=== PATIENT | male | born 1935 | race Caucasian/White ===

== ENCOUNTER → 2017-09-09 | Outpatient (CLI) | payer OTHER ==
--- NOTE | 2017-09-09 13:21 | DIAGNOSTIC IMAGING REPORT ---
LUMBAR SPINE W/O CONTRAST CLINICAL HISTORY: 81 years-old Male with LUMBAR RADICULAR PAIN M54.16. Chronic lumbar spine pain without reported trauma history of skin cancer. COMPARISON: None. TECHNIQUE: Multiplanar, multi sequence MRI of the lumbar spine was performed without intravenous contrast. FINDINGS: Conus medullaris terminates at T12-L1. Signal within the cord is within normal limits. No acute fracture or subluxation identified. 6 mm anterolisthesis L4 on L5 is noted, likely secondary to long-standing facet disease. Moderate Schmorl's nodes are seen involving the superior endplates of L3 and L4. Multifocal degenerative changes as described below. 1.7 x 1.3 cm area of marrow replacement involves the S2 vertebral body with only minimal edema as seen on image 10 series 4 and image 10 of series 5. Abnormal marrow signal involving the bilateral sacral ala and the S1 vertebral body suggests remote insufficiency fractures without bone marrow edema. Enlarged prostate measures up to 6.1 cm in coronal caudal dimension. There appears to be parenchymal thinning of the kidneys. 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 T12-L1: Mild intervertebral disc space narrowing with posterior spondylitic spurring and broad-based posterior disc bulge. Moderate facet arthrosis with ligamentum flavum thickening. No central canal or foraminal narrowing. L1-L2: Mild intervertebral disc space narrowing with posterior spondylitic spurring and broad-based posterior disc bulge. Moderate facet arthrosis with ligamentum flavum thickening. No central canal or foraminal narrowing. L2-L3: Moderate intervertebral disc space narrowing with circumferential annular disc bulge, posterior spondylitic spurring and moderate facet arthrosis and ligamentum flavum thickening. Mild central canal and mild inferior right foraminal narrowing. Left foramen is patent. L3-L4: Moderate intervertebral disc space narrowing with posterior spondylitic spurring, severe facet arthrosis with facet effusions and ligament of flavum thickening. There is mild central canal, moderate right and mild left foraminal stenosis. L4-L5: Anterolisthesis L4 on L5 as above with circumferential annular disc bulge, posterior spondylitic spurring, advanced facet arthrosis with advanced ligamentum flavum thickening resulting in severe central canal narrowing with thecal sac measuring 4 mm in AP dimension. Mild to moderate right and moderate left foraminal narrowing. L5-S1: Partial fusion at this level with posterior spondylitic spurring and advanced facet arthropathy. Central canal is patent. Mild bilateral foraminal narrowing. IMPRESSION: 1. Remote appearing insufficiency fractures of the bilateral sacral ala, S1 and S2 vertebral bodies. No displacement. 2. Grade 1 anterolisthesis L4 on L5 likely secondary to severe facet arthrosis. At this level, there is also posterior disc bulge with advanced facet arthropathy, spondylitic spurring and ligamentum flavum thickening resulting in severe central canal, mild to moderate right and moderate left foraminal narrowing. 3. Additional discogenic degenerative changes as above. 4. 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 5. Prostamegaly. The above report was generated using voice recognition software. It may contain grammatical, syntax or spelling errors. Electronically signed by: Raj Land M.D. 09/09/2017 1:19 PM Dictated Date/Time: 09/09/2017 12:51 PM
== END | disposition home or self-care (01) ==
LOC: C.MRI 11:47
PROVIDERS: ATTEND Pain Medicine Interventional Pain Medicine
DX: M51.16 Intervertebral disc disorders with radiculopathy, lumbar region (principal); N40.0 Benign prostatic hyperplasia without lower urinary tract symptoms; I71.9 Aortic aneurysm of unspecified site, without rupture

== ENCOUNTER 2024-08-11 19:34 | Inpatient (IN) ==
--- NOTE | 2024-08-11 19:51 | Emergency Department Note ---
Impression & Plan Chest pain, Elevated troponin I level, Abnormal EKG, Acute non-ST elevation myocardial infarction (NSTEMI) ED Provider Note NAME: JOVON ANNE AGE: 88 SEX: M : 1935 ARRIVES VIA: Ambulance INFORMANT: Patient, ED PROVIDER(S): Royal Carter DO CHIEF COMPLAINT: Chest pain HPI: The patient is an 88-year-old male who is a remote history of coronary artery disease who presented to the emergency department for an evaluation of chest pain. The patient describes anterior chest pain which began prior to arrival. He was treated with aspirin and nitroglycerin by the prehospital personnel. He was brought directly to the emergency department. Upon arrival the patient states his pain is no longer there. He denies having any lower extremity swelling or pain. He denies having any nausea or vomiting. ROS: See above HPI for pertinent positives & negatives. A total of 10 systems reviewed and were otherwise negative. PAST MEDICAL HISTORY: See Below PAST SURGICAL HISTORY: See Below FAMILY HISTORY: See Below SOCIAL HISTORY: See Below HOME MEDICATIONS: See Below ALLERGIES: See Below VITALS: See Below PHYSICAL EXAMINATION: GENERAL: Patient is awake alert in no acute distress patient is resting comfortably and showing no signs of anxiety EYES: The conjunctivae are clear. The pupils are round and reactive. EARS, NOSE, MOUTH AND THROAT: The nose is without any evidence of any deformity NECK: The neck is nontender and supple. RESPIRATORY: Normal respiratory effort is noted there is no evidence of wheezing rhonchi or rales CARDIOVASCULAR: Regular rate and rhythm noted there no murmurs rubs or gallops normal S1 normal S2. GASTROINTESTINAL: The abdomen is soft. Abdomen is nontender. MUSCULOSKELETAL/EXTREMITIES: There is no evidence of gross deformity full range of motion is noted in the hips and shoulders. SKIN: There is no obvious evidence of any rash. There are no petechiae, pallor or cyanosis noted. NEUROLOGIC: Patient is awake alert and oriented x3 MEDICAL DECISION MAKING: The patient is an 88-year-old male who presented to the emergency department for an evaluation of chest pain. The patient developed anterior chest pain which resolved prior to arrival after he received aspirin and nitroglycerin by the prehospital personnel. The patient was reevaluated multiple times. I discussed the patient's laboratory and radiographic studies with him. He was found to have an abnormal EKG that showed some ST segment depression in the low lateral as well as the inferior leads. The patient was also found have an elevated troponin. He was started on heparin after his second troponin was found to be higher than the initial. The patient was evaluated by the [facility]ist. Triage Nursing notes reviewed. Prior medical records reviewed Vital Signs: reviewed and remarkable for no significant abnormalities Differential diagnosis: Cardiac ischemia, aortic dissection, pulmonary embolism, pneumothorax, pneumonia, pericarditis, myocarditis, esophageal rupture, GERD, cholecystitis, pancreatitis, musculoskeletal, as well as other pathologies. ER treatment provided: See below Diagnostics interpreted by me: ECG: EKG was obtained in the emergency department. My interpretation is normal sinus rhythm at 80 bpm. There is no ectopy. Nonspecific ST depressions were noted in the inferior and low lateral leads. No previous tracing was available. Cardiac Monitoring: An order was placed for continuous cardiac monitoring. The monitor shows a rate of 86 bpm with sinus rhythm. Laboratory studies: As stated above and show below. Imaging studies: See below. Radiographic imaging was reviewed by myself Consultation(s): I discussed this case with Dr. Christensen who was on-call for the [facility]ist group. ED COURSE: Procedures: none Critical Care: I have personally spent greater than 35 minutes of critical care time in the direct management of this patient. This includes bedside care, interpretation of diagnostic studies, and testing, discussion with consultants, patient, and family members, and other required patient management activities. This 35 minutes is in excess of all separately billable procedures. 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 Type 2 diabetes mellitus AAA (abdominal aortic aneurysm) BPH (benign prostatic hyperplasia) HTN (hypertension) Dyslipidemia Medical History (Updated 08/11/24 @ 23:47 by Royal Carter DO) Cataract fragments in right eye following surgery Surgical History History of left cataract surgery Social History Smoking Status: Never smoker Hx Alcohol Use: No Preferred Language: Armenian Visual Impairment: No Limitations Hearing Ability: Normal [employer]atto[employer] Supervisor Required: No Beliefs That Will Affect Care: None marital status: Current Living Situation: Spouse current occupational status: retired Feels Safe at Home: Yes Allergies Allergies Allergy/AdvReac Type Severity Reaction Status Date / Time No Known Allergies Allergy Verified 11/28/19 14:05 Home Meds Home Medications Medication Instructions Recorded Confirmed aspirin 81 mg tablet,delayed 81 mg PO QPM 10/20/19 08/11/24 release (Adult Aspirin Regimen) cholecalciferol (vitamin D3) 50 2,000 units PO DAILY 10/20/19 08/11/24 mcg (2,000 unit) tablet ezetimibe 10 mg tablet (Zetia) 10 mg PO QPM 10/20/19 08/11/24 famotidine 20 mg tablet 20 mg PO BID 10/20/19 08/11/24 finasteride 5 mg tablet 5 mg PO DAILY 10/20/19 08/11/24 losartan 50 mg tablet 50 mg PO DAILY 10/20/19 08/11/24 metoprolol tartrate 50 mg tablet 50 mg PO BID 10/20/19 08/11/24 terazosin 5 mg capsule 10 mg PO HS 10/20/19 08/11/24 atorvastatin 10 mg tablet 10 mg PO HS 08/11/24 08/11/24 gabapentin 600 mg tablet 600 mg PO UD 08/11/24 08/11/24 levothyroxine 150 mcg tablet 150 mcg PO DAILY@0630 08/11/24 08/11/24 metformin 500 mg tablet,extended 500 mg PO BIDM 08/11/24 08/11/24 release 24 hr nifedipine 30 mg tablet,extended 30 mg PO PM 08/11/24 08/11/24 release pantoprazole 40 mg tablet,delayed 40 mg PO DAILY 08/11/24 08/11/24 release Results & Data (ED) Vital Signs Vital Signs - 24 hr 08/11/24 19:26 08/11/24 19:26 08/11/24 19:26 Temperature 36.5 C 36.7 C Temperature Source Oral Oral Pulse Rate 83 Pulse Rate [Right Finger] 80 Respiratory Rate 18 18 Blood Pressure 103/88 Blood Pressure [Right Arm] 103/88 Blood Pressure Mean 93 Blood Pressure Mean [Right Arm] 93 Pulse Oximetry 94 95 95 Oxygen Delivery Method Room Air Room Air Room Air Sepsis Recent Fever Within 48 Hours No Sepsis New/Unexplained Change in Mental Status N/A Sepsis Action Taken by Nursing No Action Required 08/11/24 19:38 08/11/24 19:42 08/11/24 20:47 Temperature Temperature Source Pulse Rate 80 80 79 Pulse Rate [Right Finger] Respiratory Rate 18 18 Blood Pressure 93/59 L Blood Pressure [Right Arm] Blood Pressure Mean 70 Blood Pressure Mean [Right Arm] Pulse Oximetry 95 96 Oxygen Delivery Method Room Air Sepsis Recent Fever Within 48 Hours Sepsis New/Unexplained Change in Mental Status Sepsis Action Taken by Nursing 08/11/24 21:57 08/11/24 23:00 08/11/24 23:41 Temperature Temperature Source Pulse Rate 70 70 66 Pulse Rate [Right Finger] Respiratory Rate 18 22 18 Blood Pressure 107/59 L 107/67 103/65 Blood Pressure [Right Arm] Blood Pressure Mean 75 80 77 Blood Pressure Mean [Right Arm] Pulse Oximetry 93 91 93 Oxygen Delivery Method Room Air Sepsis Recent Fever Within 48 Hours Sepsis New/Unexplained Change in Mental Status Sepsis Action Taken by Shelter Medications Current Medication List: was personally reviewed by me Laboratory Data Attestation: I reviewed the patient's lab results. 08/11/24 19:45 08/11/24 19:45 Lab Results 08/11/24 08/11/24 Range/Units 19:45 21:31 WBC 6.84 (4.8-10.8) K/ul RBC 4.41 L (4.70-6.10) M/uL Hgb 13.1 L (14.0-18.0) g/dl Hct 39.8 L (42.0-52.0) % MCV 90.2 (80.0-100.0) fL MCH 29.7 (25.0-34.0) pg MCHC 32.9 (32.0-36.0) g/dL RDW Std Deviation 45.4 (36.4-46.3) fL RDW Coeff of Jaleel 13.7 (11.5-14.5) % Plt Count 198 (130-400) K/uL MPV 9.3 L (9.4-12.4) fL Immature Gran % (Auto) 0.6 % Neut % (Auto) 59.1 % Lymph % (Auto) 27.2 % [place] % (Auto) 9.8 % Eos % (Auto) 2.9 % Baso % (Auto) 0.4 % Neut # (Auto) 4.04 (1.40-6.50) K/uL Lymph # (Auto) 1.86 (1.20-3.40) K/uL [place] # (Auto) 0.67 H (0.11-0.59) K/uL Eos # (Auto) 0.20 (0.00-0.50) K/uL Baso # (Auto) 0.03 (0.00-0.20) K/uL Immature Gran # (Auto) 0.04 (0.01-0.20) K/uL APTT 27 (21-31) Seconds PTT Ratio 1.0 Sodium 138 (136-145) mmol/L Potassium 4.4 (3.5-5.1) mmol/L Chloride 105 (98-107) mmol/L Carbon Dioxide 25 (21-32) mmol/L Anion Gap 8 (3-11) BUN 27 H (6-23) mg/dl Creatinine 1.03 (0.6-1.4) mg/dl Est Cr Clr Drug Dosing 54.9 ml/min eGFR 69.44 BUN/Creatinine Ratio 26.2 H (10-20) Glucose 131 H (70-99(Fasting)) mg/dl Lactate 3.0 H* (0.4-2.0) mmol/L Calcium 9.3 (8.6-10.3) mg/dl Magnesium 1.6 L (1.7-2.4) mg/dl Total Bilirubin 0.4 (0.2-1.0) mg/dl AST 19 (13-39) U/L ALT 14 (7-52) U/L Alkaline Phosphatase 305 H (34-104) U/L Troponin I High Sens 52.5 H* 353.2 H* D (0-20) pg/ml Total Protein 6.5 (6.0-8.3) gm/dl Albumin 3.9 (3.4-5.0) gm/dl Globulin 2.6 (2.5-4.0) gm/dl Albumin/Globulin Ratio 1.5 (0.9-2) Lipase 20 (11-82) U/L TSH 4.164 (0.300-4.500) uIu/ml Administered Medications Sodium Chloride (Nss) 1,000 mls @ 250 mls/hr IV .Q4H ONE Stop: 08/12/24 01:41 Last Admin: 08/11/24 21:54 Dose: 250 mls/hr Documented By: RAZ Heparin Sodium/Dextrose (Heparin Sodium/Dextrose) 25,000 units in 500 mls @ 30 mls/hr IV .[id number] [facility]; Protocol Stop: 09/10/24 22:29 Last Admin: 08/11/24 23:21 Dose: 1,500 units/hr, 30 mls/hr Documented By: RAZ Co-signed By: OSMAN Discontinued Medications Heparin Sodium/Dextrose (Heparin Iv Adult Wt-Based Standard *No* Initial Bolus Protocol) 1 each IV ONE STA; Protocol Stop: 08/11/24 22:14 Last Admin: 08/11/24 23:22 Dose: 1 each Documented By: RAZ Sodium Chloride (Nss) 1,000 mls @ 100 mls/hr IV .Q10H SHADY Stop: 08/12/24 06:51 Last Infusion: 08/11/24 21:53 Dose: Infused Documented By: Admin: 08/11/24 20:56 Dose: 75 mls/hr Documented By: RAZ Imaging Data Attestation: I personally reviewed and interpreted this imaging study as follows: My Impression: 1 view chest x-ray was obtained in the emergency department. My interpretation is no free air or definite infiltrate, final report below. Radiologist's Impression: Chest X-Ray 08/11/24 19:42 Exam(s): XR CXR 1 VIEW EXAM: XR Chest, 1 View CLINICAL HISTORY: Reason for exam: Chest pain, nonspecific. TECHNIQUE: Frontal view of the chest. COMPARISON: No relevant prior studies available. FINDINGS: Lungs: Discoid atelectasis seen in the lung bases. Pleural space: Unremarkable. No pneumothorax. Heart: Unremarkable. No cardiomegaly. Mediastinum: Unremarkable. Normal mediastinal contour. Bones/joints: Severe degenerative arthritic changes seen at the shoulder joints, left more than right. No acute fracture. IMPRESSION: Bilateral basilar discoid atelectasis. Electronically signed by: Matias De León MD 08/11/24 20:56 PM Discharge Plan Visit Data Chief Complaint: Chest Pain Stated Complaint: Chest Pain ED Provider: Royal Carter Discharge Problem: Chest pain, Elevated troponin I level, Abnormal EKG, Acute non-ST elevation myocardial infarction (NSTEMI) Patient Disposition: Being Evaluated by Hospitalist Discharge Instructions Interventions: ED Discharge Assessment Last Done: 08/11/24 23:42 Forms Stand Alone Forms: My [facility] Prescriptions Prescriptions: No Action finasteride 5 mg tablet 5 mg PO DAILY metoprolol tartrate 50 mg tablet 50 mg PO BID losartan 50 mg tablet 50 mg PO DAILY cholecalciferol (vitamin D3) 2,000 unit tablet 2,000 units PO DAILY terazosin 5 mg capsule 10 mg PO HS famotidine 20 mg tablet 20 mg PO BID ezetimibe [Zetia] 10 mg tablet 10 mg PO QPM aspirin [Adult Aspirin Regimen] 81 mg tablet,delayed release (DR/EC) 81 mg PO QPM gabapentin 600 mg tablet 600 mg PO UD Rx Instructions: 600mg @ 1900 & 1200mg @2200 atorvastatin 10 mg tablet 10 mg PO HS nifedipine 30 mg tablet extended release 30 mg PO PM pantoprazole 40 mg tablet,delayed release (DR/EC) 40 mg PO DAILY levothyroxine 150 mcg tablet 150 mcg PO DAILY@0630 metformin 500 mg tablet extended release 24 hr 500 mg PO BIDM Referrals Referrals: Jarvis Minor MD [Outside Practitioners] - Discharge Problem: Chest pain Qualifiers: Chest pain type: unspecified Qualified Code(s): R07.9 - Chest pain, unspecified
[2024-08-11 20:04] LABS: Basophils # (auto) 0.03 K/uL (0.00-0.20); Basophils % (auto) 0.4 %; Eosinophils % (auto) 2.9 %; Hematocrit (blood only) 39.8 % (42.0-52.0); Hemoglobin 13.1 g/dl (14.0-18.0); Immature Granulocytes # (auto) 0.04 K/uL (0.01-0.20); Immature Granulocytes % (auto) 0.6 %; Lymphocytes # (auto) 1.86 K/uL (1.20-3.40); Lymphocytes % (auto) 27.2 %; Mean Corpuscular Hemoglobin 29.7 pg (25.0-34.0); Mean Corpuscular Hgb Conc 32.9 g/dL (32.0-36.0); Mean Corpuscular Volume 90.2 fL (80.0-100.0); Mean Platelet Volume 9.3 fL (9.4-12.4); Monocytes # (auto) 0.67 K/uL (0.11-0.59); Monocytes % (auto) 9.8 %; Neutrophils # (auto) 4.04 K/uL (1.40-6.50); Neutrophils % (auto) 59.1 %; Platelet Count 198 K/uL (130-400); RDW Coefficient of Variation 13.7 % (11.5-14.5); RDW Standard Deviation 45.4 fL (36.4-46.3); Red Blood Count 4.41 M/uL (4.70-6.10); White Blood Count 6.84 K/ul (4.8-10.8)
[2024-08-11 20:24] LABS: Albumin Globulin Ratio 1.5 (0.9-2); Albumin Level 3.9 gm/dl (3.4-5.0); BUN Creatinine Ratio 26.2 (10-20); Bilirubin,Total 0.4 mg/dl (0.2-1.0); Calcium 9.3 mg/dl (8.6-10.3); Creatinine Clr Calc Pharmacy 54.9 ml/min; Globulin 2.6 gm/dl (2.5-4.0); Potassium 4.4 mmol/L (3.5-5.1); Total Protein 6.5 gm/dl (6.0-8.3)
[2024-08-11 20:34] LABS: Troponin I High Sensitivity 52.5 pg/ml (0-20)
--- NOTE | 2024-08-11 20:54 | History & Physical Report ---
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 Atypical chest pain Abnormal ECG with ST depressions V4-V6 Elevated troponin please refer to Dr. Shelley addendum for details regarding assessment and plan HTN: chronic, stable continue meds HLD: chronic stable continue meds AAA/Bilateral iliac anerusyms/Hx of R popliteal stent: follows Dr. Bergeron at [facility], recent follow up in August Hx of DVT/PE in 2012 following popliteal stent - on coumadin 6 months, hypercoag w/u negative, no recurrence T2DM with retinopathy/neuropathy/angiopathy: a1c 6.8 03/21/24, insulin per protocol Myasthenia Gravis:Follows Dr. Schwartz at [facility], currently not on meds DVT ppx: per Dr. Shelley addendum Dispo: admit to tele FULL CODE PCP: Dr. Vasquez History, chart review and physical exam was performed by myself. Please refer to Dr. Shelley addendum for details regarding assessment and plan I spent a total of 45 minutes reviewing notes, outpatient records, labs, medication, coordinating, documenting and providing care for this patient excluding time spent in the performance of separately billed services. History of Present Illness Chief Complaint: Chest pain x 1 day. 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 He reports chest pain began around 1830 While eating supper. His pain was located from nipple to nipple. It was nonradiating and constant. Pain was rated a 6 out of 10. Pain was similar to when he experienced a heart attack back in 1987. He reports his heart attack at that time was treated medically and did not require any coronary stent placement. He denies any associated nausea, vomiting, diaphoresis, lightheadedness, dizziness, palpitations. He further denies any shortness of breath. At baseline patient lives at assisted living facility. Due to severe neuropathy he uses a power chair for mobility. He denies any recent chest pain or GRIER. He is otherwise been in her normal state of health and denies any recent illness. He denies any fever, chills, sweats or changes in bowel or urinary habits. Patient summoned EMS. En route he received 4 baby aspirin as well as 1 nitro. His chest pain was immediately relieved after receiving nitro. In ED patient remained hemodynamically stable. He did have an elevation in his troponin at 52.5. He also had elevation in alk phos at 305 and BUN of 27. His H&H was 13.1 and 39.8. Chest x-ray revealed bibasilar atelectasis but otherwise no acute abnormality. EKG revealed lateral ST depressions in V4-V6. Allergies Allergy/AdvReac Type Severity Reaction Status Date / Time No Known Allergies Allergy Verified 11/28/19 14:05 Home Medications Medication Instructions Recorded Confirmed Type aspirin 81 mg tablet,delayed 81 mg PO QPM 10/20/19 08/11/24 History release (Adult Aspirin Regimen) cholecalciferol (vitamin D3) 50 2,000 units PO DAILY 10/20/19 08/11/24 History mcg (2,000 unit) tablet ezetimibe 10 mg tablet (Zetia) 10 mg PO QPM 10/20/19 08/11/24 History famotidine 20 mg tablet 20 mg PO BID 10/20/19 08/11/24 History finasteride 5 mg tablet 5 mg PO DAILY 10/20/19 08/11/24 History losartan 50 mg tablet 50 mg PO DAILY 10/20/19 08/11/24 History metoprolol tartrate 50 mg tablet 50 mg PO BID 10/20/19 08/11/24 History terazosin 5 mg capsule 10 mg PO HS 10/20/19 08/11/24 History atorvastatin 10 mg tablet 10 mg PO HS 08/11/24 08/11/24 History gabapentin 600 mg tablet 600 mg PO UD 08/11/24 08/11/24 History levothyroxine 150 mcg tablet 150 mcg PO DAILY@0630 08/11/24 08/11/24 History metformin 500 mg tablet,extended 500 mg PO BIDM 08/11/24 08/11/24 History release 24 hr nifedipine 30 mg tablet,extended 30 mg PO PM 08/11/24 08/11/24 History release pantoprazole 40 mg tablet,delayed 40 mg PO DAILY 08/11/24 08/11/24 History release 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 Type 2 diabetes mellitus AAA (abdominal aortic aneurysm) BPH (benign prostatic hyperplasia) HTN (hypertension) Dyslipidemia Medical History (Updated 08/11/24 @ 23:47 by Royal Carter DO) Cataract fragments in right eye following surgery Surgical History History of left cataract surgery Social History Smoking Status: Former smoker Hx Alcohol Use: No Hx Substance Use: No Preferred Language: Mozambican Communication Ability: Effective Visual Impairment: No Limitations Hearing Ability: Normal Medical Device Assembler Required: No Beliefs That Will Affect Care: None marital status: Current Living Situation: Personal Care Facility Current Living Situation Comment: [facility] current occupational status: retired Other Information That Helps Us Care for You: No Feels Safe at Home: Yes Safety Concerns: Feels Safe At This Time Assistive Devices: Glasses, Hearing Aid - Bilateral and Scooter/Electric Scooter Review of Systems Review of Systems: All systems reviewed & are unremarkable except as noted in HPI & below Physical Exam Physical Exam: constitutional: WD/WN, elderly, m, vitals as above, NAD, sitting up in bed, pleasant, conversing easily Head: Normocephalic, Atraumatic Eyes: PERRL, conjunctivae normal, anicteric sclerae ENMT: external ear and nose normal, oropharynx normal Neck: trachea midline, no thyromegaly normal visual inspection Respiratory: normal respiratory effort, lungs clear to auscultation, no wheeze, rales, rhonchi. Normal insp/exp effort, no accessory muscle use Cardiovascular: RRR, no murmur, no edema Vessels: no JVD or carotid bruit Chest: normal inspection of chest Abdomen: normal bowel sounds, soft, nontender, no hepatosplenomegaly Musculoskeletal: no cyanosis or clubbing, extremities motor strength 5/5 Skin: no rashes, warm and dry normal turgor Neurologic: PERRL, EOMI, accommodation nl, no face palsy, no dysarthria CN's II-XI intact bilaterally and moves all extremities Psychiatric: A+Ox3, euthymic affect Lymphatic: no cervical or axillary lymphadenopathy : deferred Results & Data Results & Data Vital Signs (Past 12 Hours) Vital Signs Temp Pulse Pulse Resp BP BP Pulse Ox 08/11/24 19:42 80 18 95 08/11/24 19:38 80 08/11/24 19:26 36.7 C 80 18 103/88 95 08/11/24 19:26 95 08/11/24 19:26 36.5 C 83 18 103/88 94 O2 Del Method 08/11/24 19:42 Room Air 08/11/24 19:38 08/11/24 19:26 Room Air 08/11/24 19:26 Room Air 08/11/24 19:26 Room Air Laboratory Results I have independently reviewed and interpreted patient's admitting labs including CBC, CMP, lipase, trop Diagnostic Findings Chest X-Ray 08/11/24 19:42 Exam(s): XR CXR 1 VIEW EXAM: XR Chest, 1 View CLINICAL HISTORY: Reason for exam: Chest pain, nonspecific. TECHNIQUE: Frontal view of the chest. COMPARISON: No relevant prior studies available. FINDINGS: Lungs: Discoid atelectasis seen in the lung bases. Pleural space: Unremarkable. No pneumothorax. Heart: Unremarkable. No cardiomegaly. Mediastinum: Unremarkable. Normal mediastinal contour. Bones/joints: Severe degenerative arthritic changes seen at the shoulder joints, left more than right. No acute fracture. IMPRESSION: Bilateral basilar discoid atelectasis. Electronically signed by: Matias De León MD 08/11/24 20:56 PM ECG Additional Comments: I have independently reviewed and interpreted patient's admitting EKG which revealed: NSR 80bpm, ST depression in leads V4-V6 COVID-19 Results Results COVID-19 Adm Lab Results: RBC 4.41 M/uL (4.70-6.10) L 08/11/24 WBC 6.84 K/ul (4.8-10.8) 08/11/24 Hgb 13.1 g/dl (14.0-18.0) L 08/11/24 Hct 39.8 % (42.0-52.0) L 08/11/24 Plt Count 198 K/uL (130-400) 08/11/24 Neutrophils (%) (Auto) 59.1 % 08/11/24 Lymphocytes (%) (Auto) 27.2 % 08/11/24 Monocytes # (Auto) 0.67 K/uL (0.11-0.59) H 08/11/24 Eosinophils # (Auto) 0.20 K/uL (0.00-0.50) 08/11/24 Immature Granulocyte % (Auto) 0.6 % 08/11/24 Neutrophils # (Auto) 4.04 K/uL (1.40-6.50) 08/11/24 Lymphocytes # (Auto) 1.86 K/uL (1.20-3.40) 08/11/24 Monocytes # (Auto) 0.67 K/uL (0.11-0.59) H 08/11/24 Eosinophils # (Auto) 0.20 K/uL (0.00-0.50) 08/11/24 Basophils # (Auto) 0.03 K/uL (0.00-0.20) 08/11/24 Immature Granulocyte # (Auto) 0.04 K/uL (0.01-0.20) 4 Na 138 mmol/L (136-145) 08/11/24 K 4.4 mmol/L (3.5-5.1) 08/11/24 Cl 105 mmol/L (98-107) 08/11/24 CO2 25 mmol/L (21-32) 08/11/24 Anion Gap 8 (3-11) 08/11/24 BUN 27 mg/dl (6-23) H 08/11/24 Creatinine 1.03 mg/dl (0.6-1.4) 08/11/24 BUN/Creatinine Ratio 26.2 (10-20) H 08/11/24 Glucose Level 131 mg/dl (70-99(Fasting)) H 08/11/24 Ca 9.3 mg/dl (8.6-10.3) 08/11/24 Total Bilirubin 0.4 mg/dl (0.2-1.0) 08/11/24 AST/SGOT 19 U/L (13-39) 08/11/24 ALT/SGPT 14 U/L (7-52) 08/11/24 Alkaline Phosphatase 305 U/L (34-104) H 08/11/24 Total Protein 6.5 gm/dl (6.0-8.3) 08/11/24 Albumin 3.9 gm/dl (3.4-5.0) 08/11/24 Globulin 2.6 gm/dl (2.5-4.0) 08/11/24 Albumin/Globulin Ratio 1.5 (0.9-2) 08/11/24 PTT 27 Seconds (21-31) 08/11/24 Chest X-Ray 08/11/24 Code Status & VTE Plan Code Status FULL CODE Supervising Physician Co-Signing Physician Notes IM ATTENDING : Patient seen and examined. History obtained from patient and records. Concur with salient points upon review of preceding documentation by Ms. Arlin Gambino PA-C. I take responsibility for plan of care below. In addition, patient describes chest pain similar to heart attack episode in the 1980s. FINAL ASSESSMENT AND PLAN as follows : NSTEMI History CAD status post stent Hypotension secondary to above PVD, patient follows with Hyperlipidemia statin Rx History PE/DVT [facility] vascular surgery. Status post anticoagulation DM 2 on oral medications, well-controlled as of recent hemoglobin A1c of 6.1 last June 2024 Hypothyroidism, TSH slightly elevated from outpatient blood work last month Myasthenia gravis, currently off maintenance medications, patient with blurred distance vision attributed by neurologist to lateral rectus weakness Chronic anemia (baseline hemoglobin of 12 as per records), hemoglobin better than baseline BPH Past tobacco abuse Admit to PCU Aspirin, beta-william, statin, IV heparin for now Hold nitro as needed and patient's multiple BP medications (losartan, nifedipine, terazosin) for now given hypotension Follow lactic acid response to IVF Follow troponin TTE, Cardiology consult Re: NSTEMI N.p.o. in anticipation of ischemic workup in a.m. ISS BG goal 1 10-1 40 Recheck TSH DVT prophylaxis. IV heparin DNR as per patient's prior directives. Patient requests for daughter to be given periodic updates regarding care. Oliver Cindy, contact #[phone]. Text document was generated using [employer] voice recognition software. It may contain grammatical or spelling errors. Kindly contact undersigned for clarification of any documentation item in question.
[2024-08-11] MEDS: SODIUM CHLORIDE 0.9% 1,000 ML IV SCH (20:56)
--- NOTE | 2024-08-11 20:57 | XRay Report ---
Exam(s): XR CXR 1 VIEW EXAM: XR Chest, 1 View CLINICAL HISTORY: Reason for exam: Chest pain, nonspecific. TECHNIQUE: Frontal view of the chest. COMPARISON: No relevant prior studies available. FINDINGS: Lungs: Discoid atelectasis seen in the lung bases. Pleural space: Unremarkable. No pneumothorax. Heart: Unremarkable. No cardiomegaly. Mediastinum: Unremarkable. Normal mediastinal contour. Bones/joints: Severe degenerative arthritic changes seen at the shoulder joints, left more than right. No acute fracture. IMPRESSION: Bilateral basilar discoid atelectasis. Electronically signed by: Matias De León MD 08/11/24 20:56 PM
[2024-08-11] MEDS ORDERED: ACETAMINOPHEN 325 MG TAB PO PRN (21:03)
[2024-08-11] MEDS ORDERED: traMADol HCL 50 MG TABLET PO PRN (21:03)
[2024-08-11 21:54] LABS: Magnesium 1.6 mg/dl (1.7-2.4)
[2024-08-11] MEDS: SODIUM CHLORIDE 0.9% 1,000 ML IV ONE (21:54)
[2024-08-11 22:09] LABS: Partial Thromboplastin Time 27 Seconds (21-31)
[2024-08-11 22:11] LABS: Troponin I High Sensitivity 353.2 pg/ml (0-20)
[2024-08-11] MEDS ORDERED: MoRPHine SULFATE 2 MG/ML CARP IV PRN (22:17)
[2024-08-11] MEDS ORDERED: PROMETHAZINE 6.25 MG/50.25 ML BAG IV PRN (22:17)
[2024-08-11 23:10] LABS: Thyroid Stimulating Hormone 4.164 uIu/ml (0.300-4.500)
[2024-08-11] MEDS: HEPARIN SODIUM/DEXTROSE 25,000 UNITS/500 ML BAG IV SCH (23:21)
[2024-08-11] MEDS: Heparin IV Adult Wt-Based Standard *NO* INITIAL Bolus Protocol IV STA (23:22)
[2024-08-12] MEDS ORDERED: CARBOHYDRATES FOR HYPOGLYCEMIA PO PRN (00:16)
[2024-08-12] MEDS ORDERED: DEXTROSE 50% 50 ML SYRINGE IV PRN (00:16)
[2024-08-12] MEDS ORDERED: GLUCAGON FOR INJ 1 MG VIAL SQ PRN (00:16)
[2024-08-12] MEDS ORDERED: GLUCOSE 40% GEL 15 GM TUBE PO PRN (00:16)
[2024-08-12] MEDS ORDERED: GLUCOSE 10 TAB/TUBE PO PRN (00:16)
[2024-08-12] MEDS: INSULIN ASPART PER UNIT CHARGE SC SCH ×2 (00:36→21:15)
[2024-08-12] MEDS: SODIUM CHLORIDE 0.9% 1,000 ML IV ONE (02:47)
--- OUTSIDE RECORDS SUMMARY | 2024-08-12 04:28 | External Medical Summary | Summary of Care ---
Author Name Unknown Organization [facility] Address [address] [place] [address] Phone [phone] Care Team Providers Care Front End Loader Operator Name Role Phone CucacandelarioTerryothy Primary Care Provid er Reason for Visit * Reason Onset Date Comments STAIR AAA 08/10/2024 Encounter Details Date Type Department Care Team (Late st Contact Info) Description 08/10/2024 Telephone STAIR AAA [address] [place], [place] [id number] Program, Stair [address] [place] [address] STAIR AAA Allergies No known active allergiesdocumented as of this encounter (statuses as of 08/10/2024) Medications Medication Sig Dispensed Refills Start Date End Date Status ASPIRIN EC 81 MG PO TBECIndications:Coron keshav atherosclerosis of elem coronary artery Take by mouth every evening. 30 Tab 11 03/07/2014 Active Misc. Devices (WALKER SWIVEL WHEELS) MISC Use as directed 1 Each 09/02/2018 Active Cholecalciferol (VITAMIN D3) 2000 units Capsule Take 1 Capsule by mouth in the morning. Active OneTouch Verio w/Device KitIndications:Type 2 diabetes mellitus with diabetic polyneuropathy, without long-term current use of insulin (HCC) Use up to 4 times a day E11.9 1 Kit 08/11/2022 Active OneTouch UltraSoft LancetsIndications:Ty pe 2 diabetes mellitus with diabetic polyneuropathy, without long-term current use of insulin (HCC) Use as directed 4 times a day as needed (sugars). Use up to four times a day as directed 300 Each 3 08/11/2022 Active Cyanocobalamin 1000 MCG Oral Tablet (Cyanocobalamin) Take 1 Tablet by mouth in the morning. Active Levothyroxine Sodium 150 MCG Oral Tablet (Levoxyl)Indications: Acquired hypothyroidism TAKE 1 TABLET BY MOUTH EVERY MORNING AT LEAST 30 MINUTES PRIOR TO BREAKFAST OR OTHER MEDICATIONS 90 Tablet 3 09/10/2023 Active Gabapentin 600 MG Oral Tablet (Neurontin) TAKE 1/2 TABLET EVERY MORNING AND 1 AND 1/2 TABLET EVERY EVENING AND 2 TABLETS BEFORE BEDTIME 360 Tablet 3 09/22/2023 Active Ezetimibe 10 MG Oral Tablet (Zetia) TAKE ONE-HALF TABLET BY MOUTH EVERY EVENING 50 Tablet 2 12/13/2023 5 Active NIFEdipine ER 30 MG Oral Tablet Extended Release 24 Hour (Adalat CC) TAKE ONE TABLET BY MOUTH EVERY EVENING 100 Tablet 2 12/13/2023 5 Active Atorvastatin Calcium 10 MG Oral Tablet (Lipitor) TAKE ONE TABLET BY MOUTH EVERY DAY 100 Tablet 2 04/27/2024 Active metFORMIN HCl ER 500 MG Oral Tablet Extended Release 24 Hour (Glucophage XR)Indications:Type 2 diabetes mellitus with diabetic polyneuropathy, without long-term current use of insulin (HCC) TAKE ONE TABLET BY MOUTH TWICE A DAY WITH MORNING AND EVENING MEALS 200 Tablet 2 04/27/2024 Active Terazosin HCl 10 MG Oral CapsuleIndications:BP H with obstruction/lower urinary tract symptoms TAKE ONE CAPSULE BY MOUTH AT BEDTIME 90 Capsule 1 05/05/2024 5 Active Metoprolol Tartrate 50 MG Oral Tablet (Lopressor)Indication s:HTN, goal below 130/80 TAKE ONE TABLET BY MOUTH TWICE A DAY 200 Tablet 1 05/15/2024 5 Active Finasteride 5 MG Oral Tablet (Proscar)Indications: BPH with obstruction/lower urinary tract symptoms TAKE ONE TABLET BY MOUTH EVERY MORNING 100 Tablet 3 05/15/2024 5 Active Famotidine 20 MG Oral Tablet (Pepcid) TAKE ONE TABLET BY MOUTH TWICE A DAY. 180 Tablet 2 06/12/2024 5 Active Losartan Potassium 50 MG Oral Tablet (Cozaar)Indications:P AD (peripheral artery disease) (HCC),HTN, goal below 130/80 TAKE ONE TABLET BY MOUTH EVERY DAY 90 Tablet 2 06/12/2024 5 Active Pantoprazole Sodium 40 MG Oral Tablet Delayed Release (Protonix)Indications :GERD (gastroesophageal reflux disease) TAKE ONE TABLET BY MOUTH EVERY MORNING 100 Tablet 3 07/22/2024 5 Active documented as of this encounter (statuses as of 08/10/2024) Active Problems Problem Noted Date Diagnosed Date Type 2 diabetes mellitus with peripheral artery disease 03/28/2024 Iliac aneurysm 07/14/2023 Acquired hypothyroidism 04/22/2020 Type 2 diabetes mellitus wit h diabetic polyneuropathy, without long-term current use of insulin 08/22/2019 History of Paget's disease of bone 06/20/2018 Spinal stenosis of lumbar region 06/20/2018 Myasthenia gravis 05/20/2017 Peripheral neuropathy due to metabolic disorder 05/20/2017 Ascending aorta dilation 04/18/2015 AAA (abdominal aortic aneurysm) 11/09/2014 PAD (peripheral artery disease) 03/07/2014 BPH without obstruction/lower urinary tract symp toms 02/24/2013 History of pulmonary embolism 10/04/2012 Overview: Bilateral Atherosclerosis of elem co ronary artery of elem heart without angina pectoris 07/23/2010 Hyperlipidemia associated with type 2 diabetes m ellitus 01/10/2010 Hypertension associated with type 2 diabetes aixa litus 01/10/2010 documented as of this encounter (statuses as of 08/10/2024) Resolved Problems Problem Noted Date Diagnosed Date Resolved Date 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/25/2015 12/03/2021 Edema 06/05/2014 12/03/2021 Right atrial enlargement 03/16/201411/2021 Right ventricular enlargement 03/16/2014 12/03/2021 Pulmonary embolism, bilateral 07/12/2013 03/28/2024 Pre-operative cardiovascular examination 01/30/2013 03/25/2015 documented as of this encounter (statuses as of 08/10/2024) Immunizations Name Administration Dates Next Due COVID-19 mRNA, LNP-s, No Pre serve, 2-Dose Series (Moderna) 07/28/2021,12/08/2020,11/10/2020 COVID-19, MRNA-LNP, PF, 30 M CG/0.3 mL, 12 YRS AND ABOVE, IM (PFIZER-Comirnaty) 07/20/2023 COVID-19, mRNA, LNP-s, PF, B ooster, 100mcg/0.5mg (Moderna) 03/12/2022 Covid-19, Mrna, Lnp-s, Pf, B ivalent, 30 Mcg, IM, 12 yrs and above (Pfizer) 06/24/2022 Pneumococcal Conjugate Vacci ne, 20-valent ([id number]) 12/15/2022 Pneumococcal Polysaccharide PPV23 (Pneumovax) 06/17/2021 RSV Vac., Bivalent, Perfusio n F, Pf,0.5 Ml (Abrysvo) 07/20/2023 Seasonal Influenza Vac., MDV , IM, 0.5 mL (Fluzone) 07/13/2013 Seasonal Influenza, PF, 6 M & above, IM , (FluLaval or Fluzone) 07/02/2020 Seasonal Influenza, Quad, Nasal (Flumist) 2017 Seasonal Influenza, Quadriva lent Hd (Fluzone Hd) 06/22/2023,06/09/2022,06/17/2021 TD - Tetanus/Diptheria (ADULT) 11/08/2003 TDAP (age 10 and older)(Boostrix) 01/19/2014,02/2013 Zoster Vaccine Recombinant (Shingrix) 12/13/2019 ,09/08/2019 documented as of this encounter Social History Tobacco Use Types Packs/Day Years Used Date Smoking Tobacco: Former Cigarettes 1 10 0 01/27/1950 - 01/28/1960 Smokeless Tobacco: Never Alcohol Use Standard Drinks/Week Comments Yes 0 (1 standard drink = 0.6 oz pur e alcohol) beer occ. PHQ-2 Answer Date Recorded PHQ Adult Total Score 0 06/22/2023 Hunger Vital Sign Answer Date Recorded Within the past 12 months, y ou worried that your food would run out before you got the money to buy more. Never true 12/27/19 24 Within the past 12 months, t he food you bought just didn't last and you didn't have money to get more. Never true 12/27/2023 Childcare Answer Date Recorded Do you feel overwhelmed with taking care of a child, family member or friend? No 12/27/2023 Does your family need help f inding childcare? (Household - for ages 0-17 years) Not on file 12/27/2023 Clothing Answer Date Recorded Have you been unable to get clothing when it was really needed? No 12/27/2023 Is your family able to get c lothes or diapers when needed? (Household - for ages 0-17 years) Not on file 12/27/2023 Personal Safety Answer Date Recorded Do you feel unsafe or have concerns for your saf ety? No 12/27/2023 Do you have concerns for you r family's safety? (Household - for ages 0-17 years) Not on file 12/27/2023 Utilities Answer Date Recorded Do you have trouble paying y our heating, water, or electric bill? No 12/27/2023 Is your family able to pay t he heat, water, or electric bill? (Household - for ages 0-17 years) Not on file 12/27/2023 Does your family have access to good internet? (Household - for ages 0-17 years) Not on file 12/27/2023 Employment Status Answer Date Recorded Are you unemployed or without regular income? No 12/27/2023 Does the household have a [facility] source of income? (Household - for ages 0-17 years) Not on file 12/27/2023 Social Connections Answer Date Recorded How often do you feel lonely or isolated from th ose around you? Never 12/27/2023 Financial Resource Strain Answer Date R ecorded Do you have any trouble payi ng for your medications, or do you think you might in the future? No 12/27/2023 Does your family have troubl e paying for medicine? (Household - for ages 0-17 years) Not on file 12/27/2023 Transportation Needs Answer Date Record ed READ ONLY Do you have troubl e getting a ride to medical visits or work? Never True 12/27/2023 Does your family have a hard time getting a ride to doctors visits? (Household - for ages 0-17 years) Not on file 12/27/2023 Has lack of transportation k ept you from medical appointments, meetings, work, or from getting things needed for daily living? Check all that apply. (Adult - for ages 18 years and over) Not on file 12/27/2023 Do you (or your family) have trouble finding or paying for a ride (transportation)? (Household - for ages 0-17 years) Not on file 12/27/2023 Housing Stability Answer Date Recorded Do you currently live in a s helter or have no steady place to sleep at night? No 12/27/2023 READ ONLY Do you think you a re at risk of becoming homeless? No 12/27/2023 Does your family worry about paying for your home or becoming homeless? (Household - for ages 0-17 years) Not on file 0 12/27/2023 Are you homeless or worried that you might be in the future? (Adult - for ages 18 years and over) Not on file Are you (or your family) jayy eless or worried that you might be in the future? (Household - for ages 0-17 years) Not on file Food Insecurity Answer Date Recorded Do you need food for this week? No 12/27/2023 Are you able to get enough f ood for your family? (Household - for ages 0-17 years) Not on file 12/27/2023 Does your family need food t his week? (Household - for ages 0-17 years) Not on file 12/27/2023 Do you always have enough fo od for your family? (Household - for ages 0-17 years) Not on file 12/27/2023 Sex and Gender Information Value Date Recorded Sex Assigned at Male 06/13/2021 11:23 AM EDT Gender Identity Male 06/13/2021 11:23 AM EDT Sexual Orientation Straight 06/13/2021 11 :23 AM EDT Job Start Date Occupation Industry Not on file Not on file Not on file documented as of this encounter Functional Status Functional Status Response Date of Assess ment Are you deaf or do you have serious difficulty h earing? No 02/10/2024 Are you blind or do you have serious difficulty seeing, even when wearing glasses? No 02/10/2024 Do you have serious difficul ty walking or climbing stairs? (5 years old or older) No 02/10/2024 Do you have difficulty dress ing or bathing? (5 years old or older) No 02/10/2024 Because of a physical, menta l, or emotional condition, do you have difficulty doing errands alone such as visiting a doctor s office or shopping? (15 years old or older) No 02/10/20 Cognitive Status Response Date of Assessm ent Because of a physical, menta l, or emotional condition, do you have serious difficulty concentrating, remembering, or making decisions? (5 years old or older) No 02/10/2024 documented as of this encounter Miscellaneous Notes * Telephone Encounter - Jojo Younger LPN - 08/10/2024 7:57 AM EST AAA - Clinical Summary Name: Hans Valera Age: [age] year old AAA Review: Follow-up Follow-up Encounter Provider: Dashawn Bergeron MD Patient Identified by: Problem List Report Imaging Interpretation: Duplex Type of Result: AAA >= 4 cm AAA Care Plan Imaging Recommendation: Aortic Duplex - details below Details: in 1 year AAA Care Plan Visit Recommendation: Return visit in Vascular Surgery Details: in 1 year Next steps: No action needed at this time. Patient was seen by vascular surgery yesterday. Next clinic visit with testing prior is already scheduled. Will continue to track. Time spent: 10 minutes Jojo Younger LPN Coordinator STAIR (System to Track Abnormalities of Importance Reliably) [facility] AORTIC DUPLEX EVAL-COMPLETE 08/09/2024 Narrative VASCULAR LAB RESULTS DATE OF EXAM: 08/09/24 PRESENTING CONDITIONS: AAA and bilateral iliac aneurysms Immediately before proceeding with the vascular lab procedure reported below, the identity of the patient, the correct exam and the correct procedural site were verified. Sumemrs scale, color flow and spectral doppler were performed for this examination. PHYSICIAN REPORT: Abdominal Aorta Duplex Examination. Spectral Doppler demonstrates evidence of normal waveforms of the abdominal aorta. Peak systolic velocity measurements of the aorta are 35 centimeters per second. The maximum diameter of the proximal abdominal aorta was not visualized. The maximum diameter of the mid abdominal aorta measures 3.4 centimeters by 3.4 centimeters. The maximum diameter of the distal abdominal aorta measures 4.0 centimeters by 4.0 centimeters. The maximum diameter of the proximal right common iliac artery measures 2.5 centimeters by 2.5 centimeters. The maximum diameter of the proximal left common iliac artery measures 2.5 centimeters by 2.5 centimeters. Impression : There is evidence of a 4.0 cm abdominal aortic aneurysm. Color Doppler imaging demonstrates flow consistent with a patent lumen at and distal to the aortic aneurysm. There is evidence of a 2.5 cm right common iliac artery aneurysm. There is evidence of a 2.5 cm left common iliac artery aneurysm. documented in this encounter Plan of Treatment Upcoming Encounters Date Type Department Care Team (Late st Contact Info) Description 08/18/2024 9:00 AM EST Office Visit Dermatology [facility] [address] [place] [address] Stephenie Jacobs PA-C [address] [place] [address] 11/30/2024 3:00 PM EST Nurse Only Ancillary [address] [phone] [place], Nurse [address] [address] 01/02/2025 1:20 PM EDT Office Visit General Internal Medicine [facility] [address] [place] [address] Terry Vasquez DO [address] [place] [address] 01/30/2025 1:30 PM EDT Office Visit Cardiology, [facility] [address] [place] [address] Kayden Lara, DO [address] [address] 02/01/2025 2:00 PM EDT Scheduled Telephone Neurology [address] [place] [phone] Neuromuscular, Phone Nurse Neuro [address] [place] [address] 08/22/2025 10:00 AM EST Appointment Vascular Lab [facility] [place] [address] [place] [address] 08/22/2025 10:30 AM EST Appointment Vascular Lab [facility] [place] [address] [place] [address] 08/22/2025 11:00 AM EST Office Visit Vascular Surg [facility] [place] [address] [place] [address] Dashawn Bergeron MD [address] [place] [address] Health Maintenance Due Date Last Done Comments DTap/Tdap Vaccines (3 - Td or Tdap) 01/20/2024 01/19/2014, 08/08/2013, 11/08/2003 COVID-19 Vaccine ( season) 2024 07/20/2023, 06/24/2022, 03/12/2022, Additional history exists Depression Screening 11/20/2024 11/20/2023 Adult Wellness Visit 11/25/2024 11/25/2023 Albumin/Creatinine Ratio 12/20/2024 024, 06/12/2022, 09/08/2019 HbA1c 12/21/2024 06/23/2024, 03/04, 12/21/2023, Additional history exists Diabetic Eye Exam 12/28/2024 12/29/2023, , 01/06/2023, Additional history exists Diabetic Foot Exam 03/28/2025 03/28/2024, 0 12/15/2022, 12/03/2021, Additional history exists TSH 07/13/2025 07/13/2024, 06/05, 03/21/2024, Additional history exists Zoster Vaccines Completed 12/13/2019, 12/03/2019, 08/07/2009 Pneumococcal Vaccine: 65+ Years Completed 12/15/2022, 06/17/2021, 08/13/2016, Additional history exists Influenza Vaccine (FLU shot) Completed 01/2024, 06/22/2023, 06/09/2022, Additional history exists HPV (Gardasil) Vaccine Aged Out No lo nger eligible based on patient's age to complete this topic Hepatitis B Vaccine Aged Out No longe r eligible based on patient's age to complete this topic MENINGOCOCCAL (MENACTRA/MENVEO) Aged Out No longer eligible based on patient's age to complete this topic documented as of this encounter Medical Devices Not on filedocumented as of this encounter Advance Directives Documents on File Type Date Recorded Patient Quality Control Scientist Expl anation Advance Directives and Living Will 04/13/2024 signed on 05/25/2023 * Full Code (Latest Code Status on File) Date Activated Date Inactivated Comments 06/30/2021 3:08 PM 06/30/2021 10:08 PM This order reflects the patients wishes and were consensually agreed upon. * Full Code Date Activated Date Inactivated Comments 05/19/2017 10:18 PM 05/22/2017 8:59 PM This order reflects the patients wishes and were consensually agreed upon. Question Answer Comments Discussion of Advance Directives occurred with: Patient * Full Code Date Activated Date Inactivated Comments 07/12/2013 10:24 PM 07/14/2013 10:40 PM This orde r reflects the patients wishes and were consensually agreed upon. Question Answer Comments Discussion of Advance Directives occurred with: Patient Care Teams Front End Loader Operator Relationship Specialty Start Date End Date Terry Vasquez DO [address] [place] [address] PCP - General Internal Medicine 08/09/24 documented as of this encounter
--- OUTSIDE RECORDS SUMMARY | 2024-08-12 04:28 | External Medical Summary | Summary of Care ---
Author Name Unknown Organization [facility] Address [address] [place] [address] Phone [phone] Care Team Providers Care Stamper Blocker Name Role Phone Terry Vasquezothy Primary Care Provid er Encounter Details Date Type Department Care Team (Latest Contact Info) Description 08/09/2024 9:53 AM EST - 08/09/2024 11:59 PM EST Hospital Encounter [facility] [address] [place] [address] Arrived Discharge Disposition: Home - Self Care Allergies No known active allergiesdocumented as of this encounter (statuses as of 08/10/2024) Medications Medication Sig Dispensed Refills Start Date End Date Status ASPIRIN EC 81 MG PO TBECIndications:Coron keshav atherosclerosis of [place] coronary artery Take by mouth every evening. [...] pulmonary embolism 10/04/2012 Overview: Bilateral Atherosclerosis of [place] co ronary artery of [place] heart without angina pectoris 07/23/2010 Hyperlipidemia associated [...] CG/0.3 mL, 12 YRS AND ABOVE, IM ([facility]ER[facility]) 07/20/2023 COVID-19, mRNA, LNP-s, PF, B ooster, 100mcg/0.5mg (Moderna) 03/12/2022 Covid-19, Mrna, Lnp-s, Pf, B ivalent, 30 Mcg, IM, 12 yrs and above (Pfizer) 06/24/2022 Pneumococcal Conjugate Vacci ne, 20-valent ([id number]) 12/15/2022 Pneumococcal Polysaccharide PPV23 (Pneumovax) 06/17/2021 RSV [...] No 12/27/2023 Does the household have a re lar source of income? (Household - for ages [...] (15 years old or older) No 02/10/20 24 Cognitive Status Response Date of Assessm ent Because of a physical, menta l, or emotional condition, do you have serious difficulty concentrating, remembering, or making decisions? (5 years old or older) No 02/10/2024 documented as of this encounter Plan of Treatment Upcoming Encounters Date Type Department Care Team (Late st Contact Info) Description 08/18/2024 9:00 AM EST Office Visit Dermatology [facility] [address] [facility] [place] [address] Stephenie Jacobs PA-C [address] [facility] [place] [address] 11/30/2024 3:00 PM EST Nurse Only Ancillary [address] [phone] [place], Nurse [address] [address] 01/02/2025 1:20 PM EDT Office Visit General Internal Medicine [facility] [address] [facility] [place] [address] Terry Vasquez, [address] [facility] [place] [address] 01/30/2025 1:30 PM EDT Office [facility], [facility] [place] [address] Kayden Lara, DO [address] [place] [address] 02/01/2025 2:00 PM EDT Scheduled Telephone Neurology [address] [place] [phone] Neuromuscular, Phone Nurse Neuro [address] [facility] [place] [phone] 08/22/2025 10:00 AM EST Appointment Vascular Lab [place] [address] [place] [address] 08/22/2025 10:30 AM EST Appointment Vascular Lab [address] [address] 08/22/2025 11:00 AM EST Office Visit Vascular Surg [place] [address] [place] [address] Dashawn Bergeron MD [facility] [place] [address] Health Maintenance Due Date Last Done Comments [...] Additional history exists Zoster Vaccines Completed 12/13/2019, 03/2019, 08/07/2009 Pneumococcal Vaccine: 65+ Years Completed 12/15/2022, [...] Not on filedocumented as of this encounter Procedures Procedure Name Priority Date/Time Associated Diagnosis Comments [facility] Routine 08/09/2024 11:02 AM EST Infrarenal abdominal aortic aneurysm (AAA) without rupture (HCC) Iliac aneurysm (HCC) PAD (peripheral artery disease) (HCC) documented in this encounter Results * [employer] LE (08/09/2024 11:02 AM EST) Anatomical Region Laterality Modality Lower Extremity, Vascular Ultras ound Narrative 08/09/2024 11:34 AM EST VASCULAR LAB RESULTS DATE OF EXAM: 08/09/24 PRESENTING CONDITIONS: RLE PVD with occluded SFA and right popliteal stent placed at OSH for management of pop aneurysm. Immediately before proceeding with the vascular lab procedure reported below, the identity of the patient, the correct exam and the correct procedural site were verified. Summers scale, color flow and spectral doppler were performed for this examination. PHYSICIAN REPORT: LOWER EXTREMITY ARTERIAL DUPLEX Right common femoral artery has a velocity of 39 cm/sec with a biphasic waveform. Right deep femoral artery has a velocity of 48 cm/sec with a biphasic waveform. Right superficial femoral artery, at origin has a velocity of 0 cm/sec with a absent waveform. Right superficial femoral artery, proximal thigh has a velocity of 0 cm/sec with a absent waveform. Right superficial femoral artery, mid-thigh has a velocity of 0 cm/sec with a absent waveform. Right superficial femoral artery, distal-thigh has a velocity of 0 cm/sec with a absent waveform. Right popliteal artery has a velocity of 0 cm/sec with a absent waveform. Right tibial-peroneal trunk artery has a velocity of 0 cm/sec with a absent waveform. CONCLUSIONS: The right superficial femoral artery demonstrates no flow consistent with an occlusion. The right popliteal artery demonstrates no flow consistent with an occlusion. The right tibial-peroneal trunk artery demonstrates no flow consistent with an occlusion. Tl [facility]ASC[facility] documented in this encounter Advance Directives Documents on File Type Date Recorded Patient Exhibits Curator Expl anation Advance Directives and Living Will [...] Advance Directives occurred with: Patient Care Teams Stamper Blocker Relationship Specialty Start Date End Date Terry Vasquez DO [address] [place] [address] PCP - General Internal Medicine 08/09/24 documented as of this encounter
--- OUTSIDE RECORDS SUMMARY | 2024-08-12 04:28 | External Medical Summary | Summary of Care ---
Author Name Unknown Organization [facility] Address [address] [place] [address] Phone [phone] Care Team Providers Care Transit Clerk Name Role Phone EllynTerry johnson Primary Care Provid er Reason for Visit * Evaluate & Treat - Unlimited Visits (Within 10 days (routine)) - Authorized Specialty Diagnoses / Procedures Referred By Dudley t Referred To Contact Neurology Diagnoses Diabetic neuropathy (HCC) Maria Page CRNP [address] [place] [address] Referral ID Status Reason Start Date Expiration Date Visits Requested Visits Authorized [id number] Authorized Specialty Services Required 05/24/2024 11/20/[phone] Encounter Details Date Type Department Care Team (Late st Contact Info) Description 08/02/2024 11:00 AM EDT Office Visit Neurology [address] [place] [address] Jeffrey Schwartz MD [address] [place], [place] [id number] Myasthenia gravis (HCC)*; Hereditary and idiopathic peripheral neuropathy Allergies No known active allergiesdocumented as of this encounter (statuses as of 08/02/2024) Medications Medication Sig Dispensed Refills Start Date End Date Status ASPIRIN EC 81 MG PO TBECIndications:Coron keshav atherosclerosis of [place] coronary artery Take by mouth every evening. [...] Oral Tablet (Cozaar)Indications:P AD (peripheral artery disease) ([facility]),HTN, goal below 130/80 TAKE ONE TABLET BY MOUTH EVERY DAY 90 Tablet 2 06/12/2024 5 Active Pantoprazole Sodium 40 MG Oral Tablet Delayed Release (Protonix)Indications :GERD (gastroesophageal reflux disease) TAKE ONE TABLET BY MOUTH EVERY MORNING 100 Tablet 3 07/22/2024 5 Active documented as of this encounter (statuses as of 08/02/2024) Active Problems Problem Noted Date Diagnosed Date [...] pulmonary embolism 10/04/2012 Overview: Bilateral Atherosclerosis of [place] co ronary artery of [place] heart without angina pectoris 07/23/2010 Hyperlipidemia associated with type 2 diabetes m ellitus 01/10/2010 Hypertension associated with type 2 diabetes aixa litus 01/10/2010 documented as of this encounter (statuses as of 08/02/2024) Resolved Problems Problem Noted Date Diagnosed Date Resolved Date 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/25/2015 12/03/2021 Edema 06/05/2014 12/03/2021 Right atrial enlargement 03/16/201411/2021 Right ventricular enlargement 03/16/2014 12/03/2021 Pulmonary embolism, bilateral 07/12/2013 03/28/2024 Pre-operative cardiovascular examination 01/30/2013 03/25/2015 documented as of this encounter (statuses as of 08/02/2024) Immunizations Name Administration Dates Next Due COVID-19 mRNA, LNP-s, No Pre serve, 2-Dose Series (Moderna) 07/28/2021,12/08/2020,11/10/2020 COVID-19, MRNA-LNP, 23-24, P F, 30 MCG/0.3 mL, 12 YRS AND ABOVE, IM ([employer]) 07/20/2023 COVID-19, mRNA, LNP-s, PF, B ooster, 100mcg/0.5mg (Moderna) 03/12/2022 Covid-19, Mrna, Lnp-s, Pf, B ivalent, 30 Mcg, IM, 12 yrs and above ([employer]) 06/24/2022 Pneumococcal Conjugate Vacci ne, 20-valent ([id number]) 12/15/2022 Pneumococcal Polysaccharide PPV23 (Pneumovax) 06/17/2021 RSV [...] 12/27/2023 Does the household have a re gular source of income? (Household - for ages [...] No 02/10/2024 documented as of this encounter Progress Notes * Jeffrey Schwartz MD - 08/02/2024 10:16 AM EDT 08/02/2024 Has 4 great grand kids- one this year! See's them 3-4 times a year in [place] near [facility] Daughter in [place] with 3 kids Son in [place] with daughter in [place] Is totally off meds for MG See's ophtha (reviewed their notes that say no DM retinopathy). Reports blurred vision that resolves with one eye open. All day, if closes one eye gets better. Used to get diplopia, not now, vision has never been normal since MG onset. Blurry in all directions. Ophtha told him may be able to consider use of a prism. He can read with a tablet. Bothersome for watching TV and reading. Depends on distance - if farther away is worse. Up close is not too bad. No ptosis, no bulbar issues- occasionally gets "full" in his oesophagus like if he eats something like a bagel. UE and LE strength -notes his hands are slowly getting worse. Feel like his hands are "scaley" but they are not. Takes Neurontin for his feet to help with pains in feet. Has a wheelchair all the time, can't stand or he will fall over. DM doing well overall - A1C 6.1, thyroid boderline, CBC mild anemia AT 2/0 Gastroc 2/2 PRoximal normal Intrinsics, ABP atrophic marked weakness FE 4/4 WE 4+/4+ Proximal normal IMP MG with persistent blurred vision at a distance - suspect subtle lateral rectus weakness. Would recommend him getting seen for trial of prisms. [facility]. 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 Father 69, mom in 80s and neither had gait issues. Dad in w/c late in life from [place] Nurse phone f.u in 6 months to review vision - if unchanged will f.u PRN Jeffrey Schwartz MD documented in this encounter Plan of Treatment Upcoming Encounters Date Type Department Care Team (Late st Contact Info) Description 08/09/2024 10:00 AM EST Appointment Vascular Lab [place] [address] [place] [address] 08/09/2024 10:30 AM EST Appointment Vascular Lab [facility] [place] [address] [place] [address] 08/09/2024 11:00 AM EST Appointment Vascular Lab [facility] [address] [place] [address] 08/09/2024 11:45 AM EST Office Visit Vascular Surg [place] [address] [place] [address] Dashawn Bergeron MD [address] [place] [address] 08/18/2024 9:00 AM EST Office Visit Dermatology Michelle [facility]arrete [place] [address] [place] [address] Stephenie Jacobs PA-C [address] [place], [place] [phone] 11/30/2024 3:00 PM EST Nurse Only Ancillary [facility] [place] [address] [place] [phone] Doretha, Nurse Annual Wellness [address] [place] [address] 01/02/2025 1:20 PM EDT Office Visit General Internal [facility] [address] [facility] [place] [address] Terry Vasquez, DO [address] [facility] [place] [address] 01/30/2025 1:30 PM EDT Office Visit Cardiology, [facility] [address] [place] [address] Kayden Laar, DO [address] [place] [address] 02/01/2025 2:00 PM EDT Scheduled Telephone Neurology [address] [place] [phone] Neuromuscular, Phone Nurse Neuro [address] [facility] [place] [id number] Scheduled Referrals Name Type Priority Associated Diagnoses Orde r Schedule ADULT NEUROLOGY REFERRAL OP Referral Within 10 days (routine) Diabetic neuropathy (HCC) Ordered: 05/27/2024 Health Maintenance Due Date Last Done Comments DTap/Tdap Vaccines (3 - Td or Tdap) 01/20/2024 01/19/2014, 08/08/2013, 11/08/2003 COVID-19 Vaccine ( season) 2024 07/20/2023, 07/20/2023, 06/24/2022, Additional history exists Depression Screening 11/20/2024 11/20/2023 Adult Wellness Visit 11/25/2024 11/25/2023 Albumin/Creatinine Ratio 12/20/2024 024, 06/12/2022, 09/08/2019 HbA1c 12/21/2024 06/23/2024, 03/04, 12/21/2023, Additional history exists Diabetic Eye Exam 12/28/2024 12/29/2023, , 01/06/2023, Additional history exists Diabetic Foot Exam 03/28/2025 03/28/2024, 0 12/15/2022, 12/03/2021, Additional history exists TSH 07/13/2025 07/13/2024, 06/05, 03/21/2024, Additional history exists Zoster Vaccines Completed 12/13/2019, 1203/2019, 08/07/2009 Pneumococcal Vaccine: 65+ Years Completed 12/15/2022, [...] Not on filedocumented as of this encounter Visit Diagnoses Diagnosis Myasthenia gravis (HCC)- Primary Myasthenia gravis without exacerbation Hereditary and idiopathic peripheral neuropathy Unspecified hereditary and idiopathic peripheral neuropathy documented in this encounter Advance Directives Documents on File Type Date Recorded 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
--- OUTSIDE RECORDS SUMMARY | 2024-08-12 04:28 | External Medical Summary | Summary of Care ---
Author Name Unknown Organization [facility] Address [address] [place] [address] Phone [phone] Care Team Providers Care Torch Solderer Name Role Phone Terry Vasquezothy Primary Care Provid er Encounter Details Date Type Department Care Team (Latest Contact Info) Description 08/09/2024 9:53 AM EST - 08/09/2024 11:59 PM EST Hospital Encounter Vascular Lab [facility] [address] [place] [address] Arrived Discharge Disposition: Home - Self Care Allergies No known active allergiesdocumented as of this encounter (statuses as of 08/10/2024) Medications Medication Sig Dispensed Refills Start Date End Date Status ASPIRIN EC 81 MG PO TBECIndications:Coron keshav atherosclerosis of [place] coronary artery Take by mouth every evening. [...] pulmonary embolism 10/04/2012 Overview: Bilateral Atherosclerosis of [place] co ronary artery of [place] heart without angina pectoris 07/23/2010 Hyperlipidemia associated [...] CG/0.3 mL, 12 YRS AND ABOVE, IM ([facility]) 07/20/2023 COVID-19, mRNA, LNP-s, PF, B ooster, 100mcg/0.5mg (Moderna) 03/12/2022 Covid-19, Mrna, Lnp-s, Pf, B ivalent, 30 Mcg, IM, 12 yrs and above (Pfizer) 06/24/2022 Pneumococcal Conjugate Vacci ne, 20-valent ([id number]) 12/15/2022 Pneumococcal Polysaccharide PPV23 (Pneumovax) 06/17/2021 RSV [...] 08/18/2024 9:00 AM EST Office Visit Dermatology [facility] [address] [facility] [place] [address] Stephenie Jacobs PA-C [address] [facility] [place] [address] 11/30/2024 3:00 PM EST Nurse Only Ancillary [address] [phone] [place], Nurse [address] [address] 01/02/2025 1:20 PM EDT Office Visit General Internal Medicine [facility] [address] [facility] [place] [address] Terry Vasquez, [address] [facility] [place] [address] 01/30/2025 1:30 PM EDT Office Visit [facility]iology, [facility] [place] [address] Kayden Lara, DO [address] [place] [address] 02/01/2025 2:00 PM EDT Scheduled Telephone Neurology [address] [place] [phone] Neuromuscular, Phone Nurse Neuro [address] [facility] [place] [id number] 08/22/2025 10:00 AM EST Appointment Vascular Lab [place] [address] [place] [address] 08/22/2025 10:30 AM EST Appointment Vascular Lab [address] [address] 08/22/2025 11:00 AM EST Office Visit Vascular Surg [place] [address] [place] [address] Dashawn Bergeron MD [facility] [place] [address] Health Maintenance Due Date Last Done Comments [...] Procedure Name Priority Date/Time Associated Diagnosis Comments VASC ANKLE BRACHIAL INDICES WITHOUT PPG (PAD) Routine 08/09/2024 10:46 AM EST Infrarenal abdominal aortic aneurysm (AAA) without rupture (HCC) Iliac aneurysm (HCC) PAD (peripheral artery disease) (HCC) documented in this encounter Results * VASC ANKLE BRACHIAL INDICES WITHOUT PPG (PAD) (08/09/2024 10:46 AM EST) Anatomical Region Laterality Modality Extremity, Ankle, Vascular, Lower Extremity, Keely t Ultrasound Impressions 08/09/2024 11:33 AM EST : ADA at rest is not able to be obtained due to medial calcinosis. For the right lower extremity: The actual ankle brachial index could not be calculated due to medial calcinosis. Lower extremity Doppler Evaluation is consistent with moderate to severe arterial occlusive disease based off waveform morphology. Patient has a history of revascularization of the right lower extremity. Great toe pressure is 80. PPG tracing of the great toe has decreased amplitude. For the left lower extremity: The actual ankle brachial index could not be calculated due to medial calcinosis. Lower extremity Doppler Evaluation is consistent with mild arterial occlusive disease based off waveform morphology. Patient has a history of revascularization of the left lower extremity. Great toe pressure is 152. PPG tracing of the great toe has excellent amplitude. Narrative 08/09/2024 11:33 AM EST VASCULAR LAB RESULTS DATE OF EXAMINATION: 08/09/24 INDICATION: RLE PVD with occluded SFA and right popliteal stent placed at OSH for management of pop aneurysm. ANKLE BRACHIAL INDEX OF THE LOWER EXTREMITIES Immediately before proceeding with the vascular lab procedure reported below, the identity of the patient, the correct exam and the correct procedural site were identified. Continuous wave doppler and appropriate size pressure cuffs were utilized during the examination. Findings: The right and left brachial artery blood pressures are 134 mmHg and 129 mmHg respectively. On the right, the posterior tibial artery waveform is monophasic and has an amplitude which is decreased. . The right dorsalis pedis artery waveform is monophasic and has an amplitude which is decreased. The right peroneal artery waveform is monophasic and has an amplitude which is decreased. The tibial pressures are not able to be obtained due to medial calcinosis On the left, the posterior tibial artery waveform is triphasic and has an amplitude which is excellent. . The left dorsalis pedis artery waveform is triphasic and has an amplitude which is decreased. . The left peroneal artery waveform is absent. The tibial pressures range due to medial calcinosis. 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
--- OUTSIDE RECORDS SUMMARY | 2024-08-12 04:28 | External Medical Summary | Summary of Care ---
Author Name Unknown Organization [facility] Address [address] [place] [address] Phone [phone] Care Team Providers Care Venetian Blind Cleaner And Repairer Name Role Phone Terry Vasquezothy Primary Care Provid er Encounter Details Date Type Department Care Team (Latest Contact Info) Description 08/09/2024 9:53 AM EST - 08/09/2024 11:59 PM EST Hospital Encounter Vascular Lab [facility] [address] [place] [address] Arrived Discharge Disposition: Home - Self Care Allergies No known active allergiesdocumented as of this encounter (statuses as of 08/10/2024) Medications Medication Sig Dispensed Refills Start Date End Date Status ASPIRIN EC 81 MG PO TBECIndications:Coron keshav atherosclerosis of [place] coronary artery Take by mouth every evening. [...] pulmonary embolism 10/04/2012 Overview: Bilateral Atherosclerosis of [place] co ronary artery of [place] heart without angina pectoris 07/23/2010 Hyperlipidemia associated [...] CG/0.3 mL, 12 YRS AND ABOVE, IM ([facility]) 07/20/2023 COVID-19, mRNA, LNP-s, PF, B ooster, 100mcg/0.5mg (Moderna) 03/12/2022 Covid-19, Mrna, Lnp-s, Pf, B ivalent, 30 Mcg, IM, 12 yrs and above (Pfizer) 06/24/2022 Pneumococcal Conjugate Vacci ne, 20-valent ([id number]) 12/15/2022 Pneumococcal Polysaccharide PPV23 (Pneumovax) 06/17/2021 RSV [...] 08/18/2024 9:00 AM EST [facility]at[facility] [address] Stephenie Jacobs PA-C [facility] [address] 11/30/2024 3:00 PM EST Nurse Only Ancillary [address] [phone] [place], Nurse [address] [address] 01/02/2025 1:20 PM EDT Office Visit General Internal Medicine [facility] [address] [facility] [address] Terry Vasquez, [address] [place] [address] 01/30/2025 1:30 PM EDT Office Visit [facility]iology, [facility] [place] [address] Kayden Lara, DO [address] [place] [address] 02/01/2025 2:00 PM EDT Scheduled Telephone Neurology [address] [place] [phone] Neuromuscular, Phone Nurse Neuro [address] [facility] [place] [phone] 08/22/2025 10:00 AM EST Appointment Vascular Lab [place] [address] [place] [address] 08/22/2025 10:30 AM EST Appointment Vascular Lab [address] [address] 08/22/2025 11:00 AM EST Office Visit Vascular Surg [place] [address] [place] [address] Dashawn Bergeron MD [facility] [place] [place] [address] Health Maintenance Due Date Last Done Comments [...] Name Priority Date/Time Associated Diagnosis Comments VASC AORTIC DUPLEX EVAL-COMPLETE Routine 08/09/2024 11:01 AM EST Infrarenal abdominal aortic aneurysm (AAA) without rupture (HCC) Iliac aneurysm (HCC) PAD (peripheral artery disease) (HCC) documented in this encounter Results * VASC AORTIC DUPLEX EVAL-COMPLETE (08/09/2024 11:01 AM EST) Anatomical Region Laterality Modality Abdomen, Vascular Ultrasound Impressions 08/09/2024 11:33 AM EST : There is evidence of a 4.0 cm abdominal aortic aneurysm. Color Doppler imaging demonstrates flow consistent with a patent lumen at and distal to the aortic aneurysm. There is evidence of a 2.5 cm right common iliac artery aneurysm. There is evidence of a 2.5 cm left common iliac artery aneurysm. Narrative 08/09/2024 11:33 AM EST VASCULAR LAB [...] artery measures 2.5 centimeters by 2.5 centimeters. 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
--- OUTSIDE RECORDS SUMMARY | 2024-08-12 04:28 | External Medical Summary | Summary of Care ---
Author Name Unknown Organization [facility] Address [address] [place] [address] Phone [phone] Care Team Providers Care Plate Developer Name Role Phone Terry Lorenzo DO Primary Care Provid er Reason for Visit * Reason Comments Medication Refill Encounter Details Date Type Department Care Team (Late st Contact Info) Description 07/21/2024 Refill General Internal Medicine [facility] [address] [facility] [place] [address] Terry [facility] [address] GERD (gastroesophageal reflux disease) Allergies No known active allergiesdocumented as of this encounter (statuses as of 07/22/2024) Medications Medication Sig Dispensed Refills Start Date End Date Status ASPIRIN EC 81 MG PO TBECIndications:Dickson 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 Use up to four times a day as directed 300 Each 3 08/11/2022 Active Cyanocobalamin 1000 MCG Oral Tablet (Cyanocobalamin) Take 1 Tablet by mouth in the morning. 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 180 Tablet 2 06/12/2024 06/12/20 25 Active Losartan Potassium 50 MG Oral Tablet (Cozaar)Indications: PAD (peripheral artery disease) (HCC),HTN, goal below 130/80 TAKE ONE TABLET BY MOUTH EVERY DAY 90 Tablet 2 06/12/2024 06/12/20 25 Active Pantoprazole Sodium 40 MG Oral Tablet Delayed Release (Protonix)Indication s:GERD (gastroesophageal reflux disease) TAKE ONE TABLET BY MOUTH EVERY MORNING 100 Tablet 3 07/22/2024 07/22/20 25 Active Pantoprazole Sodium 40 MG Oral Tablet Delayed Release (Protonix)Indication s:GERD (gastroesophageal reflux disease) TAKE ONE TABLET BY MOUTH EVERY MORNING 100 Tablet 1 01/08/2024 07/21/20 24 Discontinu ed(Refill) documented as of this encounter (statuses as of 07/22/2024) Active Problems Problem Noted Date Diagnosed Date [...] pulmonary embolism 10/04/2012 Overview: 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 07/23/2010 Hyperlipidemia associated with type 2 diabetes m ellitus 01/10/2010 Hypertension associated with type 2 diabetes aixa litus 01/10/2010 documented as of this encounter (statuses as of 07/22/2024) Resolved Problems Problem Noted Date Diagnosed Date Resolved Date 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/25/2015 12/03/2021 Edema 06/05/2014 12/03/2021 Right atrial enlargement 03/16/201411/2021 Right ventricular enlargement 03/16/2014 12/03/2021 Pulmonary embolism, bilateral 07/12/2013 03/28/2024 Pre-operative cardiovascular examination 01/30/2013 03/25/2015 documented as of this encounter (statuses as of 07/22/2024) Immunizations Name Administration Dates Next Due COVID-19 mRNA, LNP-s, No Pre serve, 2-Dose Series (Moderna) 07/28/2021,12/08/2020,11/10/2020 COVID-19, MRNA-LNP, 23-24, P F, 30 MCG/0.3 mL, 12 YRS AND ABOVE, IM (PFIZER-Comirnaty) 07/20/2023 COVID-19, mRNA, LNP-s, PF, B ooster, 100mcg/0.5mg (Moderna) 03/12/2022 Covid-19, Mrna, Lnp-s, Pf, B ivalent, 30 Mcg, IM, 12 yrs and above (Pfizer) 06/24/2022 Pneumococcal Conjugate Vacci ne, 20-valent ([id number]) 12/15/2022 Pneumococcal Polysaccharide PPV23 (Pneumovax) 06/17/2021 RSV [...] No 12/27/2023 Does the household have a [facility] source of income? (Household - for ages [...] encounter Miscellaneous Notes * Telephone Encounter - Anjali Rojas [facility] - 07/22/2024 6:43 AM EDTSigned Prescriptions: Disp Refills Pantoprazole Sodium 40 MG Oral Tablet Destiney*100 Ta*3 Sig: TAKE ONE TABLET BY MOUTH EVERY MORNING Authorizing Provider: TERRY LORENZO Ordering User: ANJALI ROJAS * Telephone Encounter - Lorena Zhao CPhT - 07/21/2024 2:15 PM EDT Did you pend patient's preferred pharmacy and medication before forwarding?yes Pharmacy: [facility] Pending Prescriptions: Disp Refills Pantoprazole Sodium 40 MG Oral Tablet Del*100 Ta*3 Sig: TAKE ONE TABLET BY MOUTH EVERY MORNING Last Visit: 12/28/2023 (in office), Visit date not found (telemedicine) Next Visit: Visit date not found If no future appointments scheduled, and last appointment is greater than a year ago, please schedule patient for a follow-up appointment Last date the medication was ordered: 01/08/24 Is this request for a controlled substance?No Urine Drug Screen:No results found for this or any previous visit. Patient Phone Numbers Labs: Lab Results Component Value Date/Time CREAT 1.1 07/13/2024 12:00 AM CREAT 1.1 11/29/2018 08:53 AM POTASSIUM 4.3 07/13/2024 12:00 AM POTASSIUM 3.6 11/29/2018 08:53 AM TSH 5.50 (A) 07/13/2024 12:00 AM TSH 4.32 (H) 05/19/2017 08:57 PM LDL 41 06/23/2024 10:40 AM LDLCALC 43 03/21/2024 12:00 AM ALT 13 06/23/2024 10:40 AM ALT 20 09/04/2019 03:39 PM ALT 21 11/29/2018 08:53 AM HGBA1C 6.1 (H) 06/23/2024 10:40 AM HGBA1C 6.8 (A) 03/21/2024 12:00 AM HGBA1C 6.2 05/21/2017 06:08 AM Thank you, Lorena Zhao Assistant Program Manager [facility] ([facility]) 07/21/2024, 2:16 PM documented in this encounter Plan of Treatment Upcoming Encounters Date Type Department Care Team (Late st Contact Info) Description 08/02/2024 11:00 AM EDT Office Visit Neurology [address] [place] [phone] Jeffrey Schwartz MD [facility] [place] [address] 08/09/2024 10:00 AM EST Appointment Vascular Lab [facility], [address] [address] 08/09/2024 10:30 AM EST Appointment Vascular Lab [facility], [address] [address] 08/09/2024 11:00 AM EST Appointment Vascular Lab [facility], [place] [address] [place] [address] 08/09/2024 11:45 AM EST Office Visit Vascular Surg [facility], [place] [address] [place] [address] Dashawn Bergeron MD [address] [place] [address] 08/18/2024 9:00 AM EST Office Visit Dermatology [facility] [address] [facility] [place] [address] Stephenie Jacobs PA-C [address] [facility] [place] [address] 11/30/2024 3:00 PM EST Nurse Only Ancillary [address] [phone] [place], Nurse [address] [address] 01/02/2025 1:20 PM EDT Office Visit General Internal Medicine [facility] [address] [facility] [place] [address] Terry Lorenzo DO [address] [facility] [place] [address] 01/30/2025 1:30 PM EDT Office Visit [facility], [facility] [place] [address] Kayden Lara, DO [address] [facility] [place] [address] Health Maintenance Due Date Last Done Comments [...] as of this encounter Visit Diagnoses Diagnosis GERD (gastroesophageal reflux disease) Esophageal reflux documented in this encounter Advance Directives Documents on File Type Date Recorded 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
--- OUTSIDE RECORDS SUMMARY | 2024-08-12 04:28 | External Medical Summary | Summary of Care ---
Author Name Unknown Organization [facility] Address [address] [place] [address] Phone [phone] Care Team Providers Care Manager Location Name Role Phone Terry Vasquez DO Primary Care Provid er Reason for Visit * Reason Comments Follow Up Encounter Details Date Type Department Care Team (Late st Contact Info) Description 08/09/2024 11:45 AM EST [facility] [address], [place] [id number] Dashawn Bergeron MD [address], [place] [id number] Infrarenal abdominal aortic aneurysm (AAA) without rupture (HCC)*; Iliac aneurysm (HCC); PAD (peripheral artery disease) (HCC); Hypertension associated with type 2 diabetes mellitus (HCC); Hyperlipidemia associated with type 2 diabetes mellitus (HCC); Acquired hypothyroidism; Spinal stenosis of lumbar region, unspecified whether neurogenic claudication present Allergies No known active allergiesdocumented as of this encounter (statuses as of 08/09/2024) Medications Medication Sig Dispensed Refills Start Date End Date Status ASPIRIN EC 81 MG PO TBECIndications:Coron keshav atherosclerosis of [place] coronary artery Take by mouth every evening. [...] as of this encounter (statuses as of 08/09/2024) Active Problems Problem Noted Date Diagnosed Date [...] pulmonary embolism 10/04/2012 Overview: Bilateral Atherosclerosis of [place] co ronary artery of [place] heart without angina pectoris 07/23/2010 Hyperlipidemia associated with type 2 diabetes m ellitus 01/10/2010 Hypertension associated with type 2 diabetes aixa litus 01/10/2010 documented as of this encounter (statuses as of 08/09/2024) Resolved Problems Problem Noted Date Diagnosed Date Resolved Date 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/25/2015 12/03/2021 Edema 06/05/2014 12/03/2021 Right atrial enlargement 03/16/201411/2021 Right ventricular enlargement 03/16/2014 12/03/2021 Pulmonary embolism, bilateral 07/12/2013 03/28/2024 Pre-operative cardiovascular examination 01/30/2013 03/25/2015 documented as of this encounter (statuses as of 08/09/2024) Immunizations Name Administration Dates Next Due COVID-19 mRNA, LNP-s, No Pre serve, 2-Dose Series (Moderna) 07/28/2021,12/08/2020,11/10/2020 COVID-19, MRNA-LNP, PF, 30 M CG/0.3 mL, 12 YRS AND ABOVE, IM (PFIZER-Comirnaty) 07/20/2023 COVID-19, mRNA, LNP-s, PF, B ooster, 100mcg/0.5mg (Moderna) 03/12/2022 Covid-19, Mrna, Lnp-s, Pf, B ivalent, 30 Mcg, IM, 12 yrs and above (Pfizer) 06/24/2022 Pneumococcal Conjugate Vacci ne, 20-valent ([id number]) 12/15/2022 Pneumococcal Polysaccharide PPV23 (Pneumovax) 06/17/2021 RSV [...] 0 01/27/1951 - 01/28/1961 Smokeless Tobacco: Never Tobacco Cessation:Counseling Given: No Alcohol Use Standard Drinks/Week Comments Yes 0 [...] on file documented as of this encounter Last Filed Vital Signs Vital Sign Reading Time Taken Comments Blood Pressure 118/70 08/09/2024 11:10 AM EST Pulse 68 08/09/2024 11:10 AM EST Temperature 35.9 C (96.6 F) 08/09/2024 11:[address] Respiratory Rate - - Oxygen Saturation - - Inhaled Oxygen Concentration - - Weight 89.8 kg (198 lb) 08/09/2024 11:10 AM EST Height - - Body Mass Index 26.85 03/28/2024 3:08 PM EDT documented in this encounter Functional Status Functional Status Response [...] as of this encounter Progress Notes * Cassi Ashraf PA-C - 08/09/2024 11:27 AM EST Date of Service: 08/09/2024 11:27 AM Hans Valera is an 88 year old male. Patient being seen in consultation at the request of Terry Vasquez DO Chief Complaint: Surveillance of aneurysmal disease and PAD. Accompanied by daughter. HPI: Reformed smoker with PMH of HTN, dyslipidemia, hypothyroidism and spinal stenosis Patient was previously followed in the past by Dr. Rivas. He had a R popliteal stent placed for an aneurysm in May 2013. Following the surgery he developed L leg DVT and PE. Was treated with 6 months of coumadin. He did see a cosmetology educator and his hypercoagulable work up was negative. Stent was thrombosed within a month of placement. ABDOMINAL AORTIC ANEURYSM / ILIAC ANEURYSMS: Patient denies any symptoms related to AAA / iliac aneurysms. Patient denies new abdominal pain, flank pain, back pain. PERIPHERAL VASCULAR DISEASE: Patient has no classic vasculogenic claudication, rest pain, or ulcers. Neuropathy, with numbness from knees=>toes, bilaterally. Occasional "electrical shocks" in either foot. Takes Gabapentin. Overall fatigue. Sleeps a lot. Limited ambulation. FAMILY: Aunt had an aneurysm Cousin had an aneurysm Current Outpatient Medications Medication Sig Dispense Refill ASPIRIN EC 81 MG PO TBEC Take by mouth every evening. 30 Tab 11 Misc. Devices (WALKER SWIVEL WHEELS) MISC Use as directed 1 Each 0 Cholecalciferol (VITAMIN D3) 2000 units Capsule Take 1 Capsule by mouth in the morning. OneTouch Verio w/Device Kit Use up to 4 times a day E11.9 1 Kit 0 OneTouch UltraSoft Lancets Use as directed 4 times a day as needed (sugars). Use up to four times aday as directed 300 Each 3 Cyanocobalamin 1000 MCG Oral Tablet (Cyanocobalamin) Take 1 Tablet by mouth in the morning. Levothyroxine Sodium 150 MCG Oral Tablet (Levoxyl) TAKE 1 TABLET BY MOUTH EVERY MORNING AT LEAST 30MINUTES PRIOR TO BREAKFAST OR OTHER MEDICATIONS 90 Tablet 3 Gabapentin 600 MG Oral Tablet (Neurontin) TAKE 1/2 TABLET EVERY MORNING AND 1 AND 1/2 TABLET EVERY EVENING AND 2 TABLETS BEFORE BEDTIME 360 Tablet 3 Ezetimibe 10 MG Oral Tablet (Zetia) TAKE ONE-HALF TABLET BY MOUTH EVERY EVENING 50 Tablet 2 NIFEdipine ER 30 MG Oral Tablet Extended Release 24 Hour (Adalat CC) TAKE ONE TABLET BY MOUTH EVERYEVENING 100 Tablet 2 Atorvastatin Calcium 10 MG Oral Tablet (Lipitor) TAKE ONE TABLET BY MOUTH EVERY DAY 100 Tablet 2 metFORMIN HCl ER 500 MG Oral Tablet Extended Release 24 Hour (Glucophage XR) TAKE ONE TABLET BY MOUTH TWICE A DAY WITH MORNING AND EVENING MEALS 200 Tablet 2 Terazosin HCl 10 MG Oral Capsule TAKE ONE CAPSULE BY MOUTH AT BEDTIME 90 Capsule 1 Metoprolol Tartrate 50 MG Oral Tablet (Lopressor) TAKE ONE TABLET BY MOUTH TWICE A DAY 200 Tablet 1 Finasteride 5 MG Oral Tablet (Proscar) TAKE ONE TABLET BY MOUTH EVERY MORNING 100 Tablet 3 Famotidine 20 MG Oral Tablet (Pepcid) TAKE ONE TABLET BY MOUTH TWICE A DAY. 180 Tablet 2 Losartan Potassium 50 MG Oral Tablet (Cozaar) TAKE ONE TABLET BY MOUTH EVERY DAY 90 Tablet 2 Pantoprazole Sodium 40 MG Oral Tablet Delayed Release (Protonix) TAKE ONE TABLET BY MOUTH EVERY MORNING 100 Tablet 3 No current facility-administered medications for this visit. 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 Spinal stenosis of lumbar region Type 2 diabetes mellitus with diabetic polyneuropathy, without long-term current use of insulin (HCC) Acquired hypothyroidism Iliac aneurysm (HCC) Type 2 diabetes mellitus with peripheral artery disease (HCC) History of pulmonary embolism Past Medical History: Diagnosis Date AAA (abdominal aortic aneurysm) ([facility]) 11/09/2014 Arthritis 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 anus BPH (benign prostatic hyperplasia) Dyslipidemia Hypertension Hypothyroidism Lumbar stenosis NV, old 1987 Myasthenia gravis (HCC) PAD (peripheral artery disease) (HCC) Peripheral neuropathy Pulmonary embolism, bilateral (HCC) 07/12/2013 Past Surgical History: Procedure Laterality Date CARPAL TUNNEL SURGERY Right INJECT DX/THER SUBSTANCE INTERLAMINAR LUMBAR/SACRAL W IMAGE GUIDE 09/16/2017 INJECTION SPINE LUMBAR OR SACRAL performed by Attila Ray, DO at OR [facility] INJECT DX/THER SUBSTANCE INTERLAMINAR LUMBAR/SACRAL W IMAGE GUIDE 10/25/2017 INJECTION SPINE LUMBAR OR SACRAL performed by Attila Jcs, DO at OR [facility] INJECT DX/THER SUBSTANCE INTERLAMINAR LUMBAR/SACRAL W IMAGE GUIDE 02/14/2018 INJECTION SPINE LUMBAR OR SACRAL performed by Attila Jcs, DO at OR [facility] INJECT DX/THER SUBSTANCE INTERLAMINAR LUMBAR/SACRAL W IMAGE GUIDE 05/05/2018 INJECTION SPINE LUMBAR OR SACRAL [facility] L-/S-SPINE PARAVERTEBRAL FACET INJ,1 LEVEL 08/07/2019 L-/S-SPINE PARAVERTEBRAL FACET INJ, 1 LEVEL performed by Attila Jcs, DO at OR [facility] PROSTATE BIOPSY REPAIR VESSEL DIRECT LOWER EXT popliteal SACROILIAC JOINT INJECT W/GUIDANCE 07/25/2018 INJECTION SACROILIAC JOINT performed by Attila Ray, DO at OR [facility] SACROILIAC JOINT INJECT W/GUIDANCE 12/15/2018 INJECTION SACROILIAC JOINT performed by Attila Ray, DO at OR [facility] SACROILIAC JOINT INJECT W/GUIDANCE 06/19/2019 INJECTION SACROILIAC JOINT performed by Attila Ray, DO at OR [facility] SHOULDER DEEP TUMOR REMOVAL, UNDER 5 CM Right 06/30/2021 EXCISION TUMOR SHOULDER DEEP performed by Benitez Mckeon, DO at OR [facility] Family History Problem Relation Name Age of Onset Diabetes Mother Wreda Social History Socioeconomic History Marital status: Spouse name: Not on file Number of children: Not on file Years of education: Not on file Highest education level: Not on file Occupational History Not on file Tobacco Use Smoking status: Former Current packs/day: 0.00 Average packs/day: 1 pack/day for 10.0 years (10.0 ttl pk-yrs) Types: Cigarettes Start date: [birth year]/27/1951 Quit date: 01/28/1960 Years since quittin.5 Smokeless tobacco: Never Vaping Use Vaping status: Never Used Substance and Sexual Activity Alcohol use: Yes Comment: beer occ. Drug use: No Sexual activity: Not Currently Other Topics Concern Not on file Social History Narrative Not on file Social Determinants of Health Financial Resource Strain: Low Risk (12/27/2023) Financial Resource Strain Do you have any trouble paying for your medications, or do you think you might in the future? (Adult - for ages 18 years and over): No Does your family have trouble paying for medicine? (Household - for ages 0-17 years): Not on file Food Insecurity: No Food Insecurity (12/27/2023) Food Insecurity Do you need food for this week? (Adult - for ages 18 years and over): No Are you able to get enough food for your family? (Household - for ages 0-17 years): Not on file Does your family need food this week? (Household - for ages 0-17 years): Not on file Do you always have enough food for your family? (Household - for ages 0-17 years): Not on file Transportation Needs: No Transportation Needs (12/27/2023) Transportation Needs Do you have trouble getting a ride to medical visits or work? (Adult - for ages 18 years and over):Never True Does your family have a hard time getting a ride to doctors visits? (Household - for ages 0-17 years): Not on file Has lack of transportation kept you from medical appointments, meetings, work, or from getting things needed for daily living? Check all that apply. (Adult - for ages 18 years and over): Not on file Do you (or your family) have trouble finding or paying for a ride (transportation)? (Household - for ages 0-17 years): Not on file Social Connections: Socially Integrated (12/27/2023) Social Connections How often do you feel lonely or isolated from those around you? (Adult - for ages 18 years and over): Never Housing Stability: Low Risk (12/27/2023) Housing Stability Do you currently live in a senior care or have no steady place to sleep at night? (Adult - for ages 18 years and over): No Do you think you are at risk of becoming homeless? (Adult - for ages 18 years and over): No Does your family worry about paying for your home or becoming homeless? (Household - for ages 0-17 years): Not on file Are you homeless or worried that you might be in the future? (Adult - for ages 18 years and over): Not on file Are you (or your family) homeless or worried that you might be in the future? (Household - for ages0-17 years): Not on file REVIEW OF SYSTEMS: Constitutional: Denies fever/chills. Eyes: wears glasses. Cardiovascular: Denies chest pain Respiratory: Denies shortness of breath GI: denies BRBPR : denies hematuria Skin: Denies ulcers. Neurological: Denies TIA, denies CVA. Reports peripheral neuropathy. Hx MG. Reports fatigue GENERAL MULTI-SYSTEM PHYSICAL EXAM: VITAL SIGNS: BP 118/70 (BP Site: Right Arm, BP Position: Sitting, BP Cuff Size: Regular) | Pulse 68 | Temp 35.9 C (96.6 F) (Temporal Artery) | Wt 89.8 kg (198 lb) | BMI 26.85 kg/m | BSA 2.14 m GENERAL MULTI-SYSTEM PHYSICAL EXAM: GENERAL: No acute distress and appears stated age. RESPIRATORY: Respiratory effort normal. CARDIOVASCULAR: No BLE edema. GASTROINTESTINAL: no tenderness, protuberant and abdominal aorta not palpable. SKIN: No ulcers of feet bilaterally. PSYCHIATRIC: orientation to time, place and person normal and recent and remote memory normal. EYES: conjunctivae normal NEUROLOGIC: Motor function grossly intact. PULSE SCALE: Carotid Right:----Bruit: No Left:----Bruit: No Radial Right: 3 Left: 3 Femoral Right: 3 Left: 3 Popliteal Right: 0 Left: 2 Dorsalis Pedis Right: 0 Left: 1 Posterial Tibial Right: 0 Left: 1 PULSE SCALE: 4=Aneurysmal; 3=Normal; 2=Diminished; 1=Barely Palpable; 0=Absent DIAGNOSTIC STUDIES: 08/09/24: ADA: mono/multi 08/09/24: aortic duplex: 4 cm AAA, R SAKINA 2.5 cm, LCIA 2.5 cm 08/09/24: RLE art dup: R HOSPICE DIRECTOR 39, R DFA 48, R SFA 0, R SFA 2 cm, R pop 0, R pop 2.6 cm, R tib-per trk0 The above diagnostic images were directly visualized and independently interpreted by me on 08/09/2024 with results as above 07/14/23: ADA: mono/tri 07/14/23: Aortic Duplex: Prox UI, Mid UI, Dist 4.1 cm, RCIA 2.7 cm, LCIA 2.7 cm 07/14/23: RLE Art: RCFA 31, RDFA 47, RSFA occlusion, R-pop 3.4 cm (no flow) 06/11/22: [facility]: BLE duplex: RCFA 46, RSFA 30, RSFA 28/0/0, stent occluded, R pop 7 x 3.3cm avascular mass, runoff 23 LCFA 52, LDFA 20, LSFA 73, L pop 23, runoff 132 06/11/22: [facility] aortic duplex: Aorta 4.5cm, RCIA 2cm, LCIA 2.3cm 06/11/21: Aortic duplex: 4 cm AAA, RCIA 2.5 cm, LCIA 2.0 cm 06/11/21: arterial duplex: RCFA 27, RDFA 24, RSFA 37/0/0, R pop 0, R pop fossa 6.1 cm x 1.8 cm, R FAMILY PRACTITIONER 12, R DAYLIN 31 LCFA 32, LDFA 19, LSFA 32/42/23, L pop 28/27, L FAMILY PRACTITIONER 57/66, L DAYLIN 46 06/06/20: ADA: .86/1.4; RLE biphasic waveforms, LLE triphasic waveforms. 06/06/20: arterial duplex: RCFA 27, RCFA 1.7cm, RSFA occluded, RSFA 1.9 cm, R pop stent occluded, R pop fossa nonvascular mass 5.7 cm x 2.7 cm, LCFA 39, LCFA 1.9 cm, LSFA 37, LSFA 1.2 cm, L pop 23, L pop 1.6 cm 06/06/20: aortic duplex: 3.8 cm AAA, 2.1 cm RCIA, 1.9 cm LCIA. Date: 11/28/2018; Location of Study: [facility]; Modality: duplex; AAA measures 3.9 cm in greatest transverse dimension. R SAKINA 2.3 cm and L SAKINA 2.5 cm 11/28/18: R SFA stent thrombosed and L SFA patent. 11/28/18: ADA MC/MC but waveforms stable from 10/2017 Date: 10/21/2017; Location of Study: [facility]; Modality: duplex; AAA measures 3.9 cm in greatest transverse dimension. R SAKINA 2.5 cm and L SAKINA 2.3 cm. 10/21/2017 BLE Art Duplex R HOSPICE DIRECTOR 1.8 cm, R SFA 1.8 cm (occluded), R pop stent occluded. L HOSPICE DIRECTOR 1.7 cm,L SFA 1.5 cm, L pop 1.6 cm. 10/21/2017 ADA .55/1.1. 09/25/2016: ADA: 0.71/1.2 09/25/2016: art duplex: R HOSPICE DIRECTOR 1.6 cm, R SFA 1.8 cm, L HOSPICE DIRECTOR 1.5 cm, L pop 1.5 09/25/2016: aortic duplex: AAA 3.7 cm, R SAKINA 2.3 cm, L SAKINA 1.9 cm, iliacs tortuous 06/25/2015: ADA .66/.93 06/25/2015: art duplex: RCFA 1.6 cm, R SFA 1.6, R distal SFA to proximal pop no flow due to collapsed stent, LCFA 1.6 cm, LSFA 1.2 cm, L pop 1.5 cm 06/25/2015; Aortic duplex; AAA measures 3.7 cm in greatest transverse dimension. RCIA 2.0 cm and tortuous, LCIA 2.4 cm and tortuous 06/06/14: LLE venous duplex: no DVT 06/06/14: ADA: R tibials are biphasic and dampened/L 1.0 06/06/14: art duplex: R CF 1.5 cm, R SF 1.4 cm, R distal SFA to proximal pop no flow L CF 1.5 cm, L SF 1.3 cm, L pop 1.6 cm. LABS: Creatinine Results: Lab Results Component Value Date/Time CREATININE - [facility] 1.1 07/13/2024 12:00 AM CREATININE - [facility] 1.1 06/23/2024 10:40 AM CREATININE - [facility] 1.0 03/21/2024 12:00 AM CREATININE - [facility] 1.1 12/21/2023 10:53 AM CREATININE - [facility] 1.0 06/15/2023 10:11 AM CREATININE - [facility] 1.1 10/03/2020 12:00 AM CREATININE - [facility] 1.1 11/29/2018 08:53 AM CREATININE - [facility] 1.0 05/21/2017 06:08 AM CREATININE - [facility] 1.3 (H) 05/19/2017 08:57 PM CREATININE, RANDOM URINE - [facility] 167 12/21/2023 10:53 AM CREATININE, RANDOM URINE - [facility] 185 06/12/2022 09:01 AM Lab Results Component Value Date/Time LDL (CALCULATED)-OUTSIDE LAB 43 03/21/2024 12:00 AM LDL CHOLESTEROL (CALCULATED) - [facility] 41 06/23/2024 10:40 AM LDL CHOLESTEROL (DIRECT MEASURE) - [facility] 58 12/03/2021 11:41 AM Hemoglobin Results: Lab Results Component Value Date/Time HGB 12.8 07/13/2024 12:00 AM HGB 12.9 (L) 07/04/2024 02:01 PM HGB 12.6 (L) 06/23/2024 10:40 AM HGB 13.1 03/21/2024 12:00 AM HGB 14.1 12/21/2023 10:53 AM HGB 14.7 10/03/2020 12:00 AM HGB 14.2 11/29/2018 08:53 AM HGB 14.8 11/05/2017 12:00 AM HGB 15.7 05/19/2017 08:57 PM HGB 13.9 (L) 07/14/2013 06:13 AM Hemoglobin AIC Results: Lab Results Component Value Date/Time HEMOGLOBIN A1C - [facility] 6.1 (H) 06/23/2024 10:40 AM HEMOGLOBIN A1C - [facility] 6.6 (H) 12/21/2023 10:53 AM HEMOGLOBIN A1C - [facility] 6.5 (H) 06/15/2023 10:11 AM HEMOGLOBIN A1C - [facility] 6.2 05/21/2017 06:08 AM The above clinical lab tests were reviewed by me on 08/09/2024. 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 RLE PVD with occluded SFA and right popliteal stent placed at OSH for management of pop aneurysm. Currently denies any classic vasculogenic claudication, rest pain, or ulcers. LLE DVT and PE in 2012, treated with 6 months of coumadin therapy. H/O left leg post-thrombotic syndrome, improved symptoms with compression therapy. HTN, stable Dyslipidemia, on statin/zetia Reformed smoker Hypothyroidism BPH Vaughan's cyst of right pop fossa Peripherial neuropathy. Hospitalized 05/2017 with Myasthenia Gravis, followed by Dr. Schwartz. Reported lumbar stenosis. PLAN: Patient was counseled on the pathophysiology and natural history of aneurysms as well as the signs to initiate emergency medical attention Asymptomatic 4 cm AAA and 2.5 cm bilateral iliacs Patient was counseled on good BP control and family screenings Continue surveillance Patient was counseled on the pathophysiology and natural history of PAD ADA acceptable R SFA through tib-per trk occluded which is chronic No claudication, rest pain or ulcers Patient was counseled on good footwear and care and a regular walking program Continue medical management Continue daily 81mg ASA for antiplatelet therapy Continue Lipitor 10mg and Zetia for hyperlipidemia. RTC 1 year with ADA, aortic duplex, sooner PRN The patient was seen and examined with Dashawn Bergeron MD. XANDER CrowellC Vascular and Endovascular Surgery [facility] I have reviewed the advanced practitioner's documentation on the date of service referenced in note, and I agree with, and take responsibility for the plan of care. Here for f/u of small AAA and PAD Sizes remain well below surgical size Known thrombosed right pop aneurysm stent with chronic SFA occlusion and large profunda with excellent collaterals ABIs are stable Right foot in good shape Barely walks anymore Can f/u 1 year Dashawn Bergeron MD Section of Vascular and Endovascular Surgery [facility] [place] [id number] [phone] documented in this encounter Nursing Notes * Emili Kauffman, Student - 08/09/2024 11:13 AM EST Patient was instructed to not get up on the exam table/exam chair until directed and assisted by their provider; patient is to remain seated in the chair/ wheelchair/ exam table/ exam chair for fall prevention and safety reasons. Patient is aware to have assistance to step down off exam table/exam chair with personnel. Patient voiced full comprehension of instructions. Ann Marie Martinez documented in this encounter Plan of Treatment Upcoming Encounters Date Type Department Care Team (Late st Contact Info) Description 08/18/2024 9:00 AM EST Office Visit Dermatology [facility] [address] [facility] [place] [address] Stephenie Jacobs PA-C [address] [facility] [place] [address] 11/30/2024 3:00 PM EST Nurse Only Ancillary [facility] [address] [place] [phone] Have, Nurse Annual [address] [address] 01/02/2025 1:20 PM EDT Office Visit General Internal Medicine [facility] [address] [facility] [place] [address] Terry Vasquez DO [address] [facility] [place] [address] 01/30/2025 1:30 PM EDT Office Visit Cardiology, [facility] [address] [place] [address] Kayden Lara, DO [address] [place] [address] 02/01/2025 2:00 PM EDT Scheduled Telephone Neurology [address] [place] [phone] Neuromuscular, Phone Nurse Neuro [address] [place] [address] 08/22/2025 10:00 AM EST Appointment Vascular [facility] [place] [address] [place] [address] 08/22/2025 10:30 AM EST Appointment Vascular [facility] [place] [address] [place] [address] 08/22/2025 11:00 AM EST Office Visit Vascular Surg [facility] [address] [place] [address] Dashawn Bergeron MD [address] [place] [address] Scheduled Orders Name Type Priority Associated Diagnoses Orde r Schedule VASC ANKLE BRACHIAL INDICES WITHOUT PPG (PAD) Medical Imaging Routine PAD (peripheral artery disease) (HCC) Ordered: 08/09/2024 VASC AORTIC DUPLEX EVAL-COMPLETE Medical Imaging Routine Infrarenal abdominal aortic aneurysm (AAA) without rupture (HCC) Iliac aneurysm (HCC) Ordered: 08/09/2024 Health Maintenance Due Date Last Done Comments DTap/Tdap Vaccines (3 - Td or Tdap) 01/20/2024 01/19/2014, 08/08/2013, 11/08/2003 COVID-19 Vaccine ( season) 2024 07/20/2023, 06/24/2022, 03/12/2022, Additional history exists Depression Screening 11/20/2024 11/20/2023 Adult Wellness Visit 11/25/2024 11/25/2023 Albumin/Creatinine Ratio 12/20/20242 024, 06/12/2022, 09/08/2019 HbA1c 12/21/2024 06/23/2024, 03/04, 12/21/2023, Additional history exists Diabetic Eye Exam 12/28/2024 12/29/2023, , 01/06/2023, Additional history exists Diabetic Foot Exam 03/28/2025 03/28/2024, 0 12/15/2022, 12/03/2021, Additional history exists TSH 07/13/2025 07/13/2024, 06/05, 03/21/2024, Additional history exists Zoster Vaccines Completed 12/13/2019, 120 03/2019, 08/07/2009 Pneumococcal Vaccine: 65+ Years Completed [...] as of this encounter Visit Diagnoses Diagnosis Infrarenal abdominal aortic aneurysm (AAA) without rupture (HCC)- Primary Iliac aneurysm (HCC) Aneurysm of iliac artery PAD (peripheral artery disease) (HCC) Peripheral vascular disease, unspecified Hypertension associated with type 2 diabetes mellitus (HCC) Hyperlipidemia associated with type 2 diabetes mellitus (HCC) Acquired hypothyroidism Unspecified hypothyroidism Spinal stenosis of lumbar region, unspecified whether neurogenic claudication present documented in this encounter Advance Directives Documents on File Type Date Recorded Patient Directional Driller Expl anation Advance Directives and Living Will [...] Advance Directives occurred with: Patient Care Teams Manager Location Relationship Specialty Start Date End Date Terry Vasquez DO [address] [place] [address] PCP - General Internal Medicine 08/09/24 documented as of this encounter
--- OUTSIDE RECORDS SUMMARY | 2024-08-12 04:29 | External Medical Summary ---
Author Name Unknown Address Unknown Organization [id number]:[facility]ATORY [facility] [place] - [address] [facility] [place] [address] Laboratory Report Ordering Provider Test Date Status MAURA DAVID 06/23/2024 10:40:06 Final Observation Date Value Abnormality Reference (Units ) Status Triglyceride 06/23/2024 10:40:06 71 <=174 ( mg/dL) Final Triglyceride Reference Range s (mg/dL):
<150 Acceptable
150-174 Borderline high
175-499 High
>=500 Very high Cholesterol 06/23/2024 10:40:06 88 <200 (mg /dL) Final Total Cholesterol Reference Ranges (mg/dL):
<200 Desirable
200-239 Borderline high
>=240 High HDL 06/23/2024 10:40:06 33 Below low normal >39 (mg/dL) Final HDL Cholesterol Reference Ra nges (mg/dL):
>=60 High (Desirable)
<50 Low (Undesirable) For Females
<40 Low (Undesirable) For Males NON-HDL CHOLESTEROL 06/23/2024 10:40:06 55 <=159 (mg/dL) Final Non-HDL Cholesterol Referenc e Range (mg/dL):
<100 Target level for high risk ASCVD patient
<130 Optimal for general population
130-159 Near optimal for general population
160-189 Borderline High
190-219 High
>=220 Very High LDL, (calculated) 06/23/2024 10:40:06 41 <= 129 (mg/dL) Final LDL Cholesterol Reference Ra nges (mg/dL):
<70 Target level for high risk ASCVD patient
<100 Optimal for general population
100-129 Near optimal for general population
130-159 Borderline high
160-189 High
>=190 Very high Performing Location [facility]ORY [facility] [place] - [address] [facility] [address]
--- OUTSIDE RECORDS SUMMARY | 2024-08-12 04:29 | External Medical Summary ---
Author Name Unknown Address Unknown Organization [id number]:LABORATORY [facility] [place] - [address] [place] [address] Laboratory Report Ordering Provider Test Date Status MAURA DAVID 06/23/2024 10:40:06 Final Observation Date Value Abnormality Reference (Units ) Status TSH 06/23/2024 10:40:06 4.66 Above high normal 0. 27-4.20 (uIU/mL) Final Performing Location LAB[facility]ATORY [facility] [place] - [address] [place] [address]
--- OUTSIDE RECORDS SUMMARY | 2024-08-12 04:29 | External Medical Summary | Summary of Care ---
Author Name Unknown Organization [facility] Address [address] [place] [address] Phone [phone] Care Team Providers Care International Marketing Coordinator Name Role Phone Terry Vasquez DO Primary Care Provid er Reason for Visit * Reason Comments Follow Up Encounter Details Date Type Department Care Team (Late st Contact Info) Description 07/04/2024 1:20 PM EDT Office Visit General Internal Medicine [facility] [address] [place] [address] Terry Vasquez DO [address] [place] [address] Type 2 diabetes mellitus with diabetic polyneuropathy, without long-term current use of insulin ([facility])*; Hypertension associated with type 2 diabetes mellitus (HCC); Hyperlipidemia associated with type 2 diabetes mellitus (HCC); Acquired hypothyroidism; PAD (peripheral artery disease) ([facility]); Ascending aorta dilation ([facility]); Abdominal aortic aneurysm (AAA) without rupture, unspecified part ([facility]); Atherosclerosis of [place] coronary artery of [place] heart without angina pectoris; BPH without obstruction/lower urinary tract symptoms; Myasthenia gravis ([facility]); Normocytic anemia Allergies No known active allergiesdocumented as of this encounter (statuses as of 07/04/2024) Medications Medication Sig Dispensed Refills Start Date End Date Status ASPIRIN EC 81 MG PO TBECIndications:Coron keshav atherosclerosis of [place] coronary artery Take by mouth every evening. [...] EVENING 100 Tablet 2 12/13/2023 5 Active Pantoprazole Sodium 40 MG Oral Tablet Delayed Release (Protonix)Indications :GERD (gastroesophageal reflux disease) TAKE ONE TABLET BY MOUTH EVERY MORNING 100 Tablet 1 01/08/2024 5 Active Atorvastatin Calcium 10 MG Oral [...] DAY 90 Tablet 2 06/12/2024 5 Active documented as of this encounter (statuses as of 07/04/2024) Active Problems Problem Noted Date Diagnosed Date [...] pulmonary embolism 10/04/2012 Overview: Bilateral Atherosclerosis of [place] co ronary artery of [place] heart without angina pectoris 07/23/2010 Hyperlipidemia associated with type 2 diabetes m ellitus 01/10/2010 Hypertension associated with type 2 diabetes aixa litus 01/10/2010 documented as of this encounter (statuses as of 07/04/2024) Resolved Problems Problem Noted Date Diagnosed Date Resolved Date 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/25/2015 12/03/2021 Edema 06/05/2014 12/03/2021 Right atrial enlargement 03/16/201411/2021 Right ventricular enlargement 03/16/2014 12/03/2021 Pulmonary embolism, bilateral 07/12/2013 03/28/2024 Pre-operative cardiovascular examination 01/30/2013 03/25/2015 documented as of this encounter (statuses as of 07/04/2024) Immunizations Name Administration Dates Next Due COVID-19 mRNA, LNP-s, No Pre serve, 2-Dose Series (Moderna) 07/28/2021,12/08/2020,11/10/2020 COVID-19, MRNA-LNP, 23-24, P F, 30 MCG/0.3 mL, 12 YRS AND ABOVE, IM ([employer]) 07/20/2023 COVID-19, mRNA, LNP-s, PF, B ooster, 100mcg/0.5mg (Moderna) 03/12/2022 Covid-19, Mrna, Lnp-s, Pf, B ivalent, 30 Mcg, IM, 12 yrs and above ([employer]) 06/24/2022 Pneumococcal Conjugate Vacci ne, 20-valent ([id number]) 12/15/2022 Pneumococcal Polysaccharide PPV23 (Pneumovax) 06/17/2021 RSV [...] 01/28/1961 Smokeless Tobacco: Never Tobacco Cessation:Counseling Given: Not Answered Alcohol Use Standard Drinks/Week Comments Yes 0 [...] Sign Reading Time Taken Comments Blood Pressure 102/68 07/04/2024 1:20 PM EDT Pulse 61 07/04/2024 1:20 PM EDT Temperature 35.2 C (95.4 F) 07/04/2024 1:20 PM ED T Respiratory Rate 20 07/04/2024 1:20 PM EDT Oxygen Saturation 95% 07/04/2024 1:20 PM EDT Inhaled Oxygen Concentration - - Weight 89.8 kg (198 lb) 07/04/2024 1:20 PM EDT Height - - Body Mass Index 26.85 [...] as of this encounter Progress Notes * Terry Vasquez, DO - 07/04/2024 1:33 PM EDT Subjective Hans Valera is a 88 year old male. Chief Complaint Patient presents with Follow Up HPI: Presents office for routine follow-up. Lab work done, results reviewed with patient. Medication list reviewed. On review of labs patient's CBC did show a slight drop in hemoglobin 12.6. Most recently 14.0. Has not noted any bleeding events or complications. No bright red blood per rectum or melena. No hematuria. No bleeding from the gums. Is on aspirin 81 mg daily but no other antiplatelet or anticoagulant Does have history of myasthenia gravis. Has seen Neurology in the past. Not on any specific medications at this time. Is currently residing at assisted living with his . States there gradually adjusting. Does not note any new neurologic deficits. Does use wheelchair for prolonged ambulation Type 2 diabetes with associated peripheral neuropathy. A1c well controlled at 6.1. Maintained on metformin 500 mg twice daily. Up-to-date on foot and eye exams. Neuropathy mostly controlled on gabapentin 600 mg 3 times daily. No obvious side effects to medications. Hypertension, hyperlipidemia. Tolerating current treatment regimen without adverse effects. Vital stable today. No symptoms noted be consistent with elevation of baseline blood pressure. Recent labs showed stable renal function/electrolytes. Total and LDL cholesterol at goal Has history of CAD, ascending aorta dilation. Follows with [facility]. Reviewed most recent consultation note. Most recent echo found to be stable. Continued on current regimen. No acute cardiac issues noted at that time. Hypothyroidism maintained on levothyroxine. TSH slightly elevated as well as free T4 slightly elevated at 1.8. Overall tolerating his medication. Does not note any acute issues PMH: Patient Active Problem List Diagnosis Hyperlipidemia associated with type 2 diabetes mellitus (HCC) Hypertension associated with type 2 diabetes mellitus (HCC) Atherosclerosis of [place] coronary artery of [place] heart without angina pectoris BPH without obstruction/lower [...] artery disease (HCC) History of pulmonary embolism Current Outpatient Medications Medication Sig Dispense Refill [...] TABLET BY MOUTH EVERYEVENING 100 Tablet 2 Pantoprazole Sodium 40 MG Oral Tablet Delayed Release (Protonix) TAKE ONE TABLET BY MOUTH EVERY MORNING 100 Tablet 1 Atorvastatin Calcium 10 MG Oral Tablet (Lipitor) [...] BY MOUTH EVERY DAY 90 Tablet 2 No current facility-administered medications for this visit. 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 BPH (benign prostatic hyperplasia) Dyslipidemia Hypertension Hypothyroidism Lumbar stenosis DC, old 1987 Myasthenia gravis ([facility]) PAD (peripheral artery disease) ([facility]) Peripheral neuropathy Pulmonary embolism, bilateral ([facility]) 07/12/2013 Past Surgical History: Procedure Laterality Date CARPAL TUNNEL SURGERY Right INJECT DX/THER SUBSTANCE INTERLAMINAR LUMBAR/SACRAL W IMAGE GUIDE 09/16/2017 INJECTION SPINE LUMBAR OR SACRAL performed by Attila Ray, at OR [facility] INJECT DX/THER SUBSTANCE INTERLAMINAR LUMBAR/SACRAL W IMAGE GUIDE 10/25/2017 INJECTION SPINE LUMBAR OR SACRAL performed by Attila Carlos Cousins, DO at OR [facility] INJECT DX/THER SUBSTANCE INTERLAMINAR LUMBAR/SACRAL W IMAGE GUIDE 02/14/2018 INJECTION SPINE LUMBAR OR SACRAL performed by Attila B Cousins, DO at OR [facility] INJECT DX/THER SUBSTANCE INTERLAMINAR LUMBAR/SACRAL W IMAGE GUIDE 05/05/2018 INJECTION SPINE LUMBAR OR SACRAL performed by Attila Carlos Cousins, DO at OR [facility] L-/S-SPINE PARAVERTEBRAL FACET INJ,1 LEVEL 08/07/2019 L-/S-SPINE PARAVERTEBRAL FACET INJ, 1 LEVEL performed by Attila Carlos Cousinsher, DO at OR [facility] PROSTATE BIOPSY REPAIR VESSEL DIRECT LOWER EXT popliteal SACROILIAC JOINT INJECT W/GUIDANCE 07/25/2018 INJECTION SACROILIAC JOINT performed by Attila Griffinsins, DO at OR [facility] SACROILIAC JOINT INJECT W/GUIDANCE 12/15/2018 INJECTION SACROILIAC JOINT performed by Attila Ray, DO at OR [facility] SACROILIAC JOINT INJECT W/GUIDANCE 06/19/2019 INJECTION SACROILIAC JOINT performed by Attila Ray, DO at OR [facility] SHOULDER DEEP TUMOR REMOVAL, UNDER 5 CM Right 06/30/2021 EXCISION TUMOR SHOULDER DEEP performed by Benitez Mckeon DO at OR [facility] Review of patient's allergies indicates: No Known Allergies Family History Problem Relation Name Age of Onset Diabetes Mother Chula Family Status Relation Status Mo (Not Specified) Social History Socioeconomic History Marital status: Spouse name: Not on file Number of children: Not on file Years of education: Not on file Highest education level: Not on file Occupational History Not on file Tobacco Use Smoking status: Former Current packs/day: 0.00 Average packs/day: 1 pack/day for 10.0 years (10.0 ttl pk-yrs) Types: Cigarettes Start date: 01/27/1950 Quit date: 01/28/1960 Years since quittin.4 Smokeless tobacco: Never Vaping Use Vaping status: [...] - for ages0-17 years): Not on file Review of Systems Constitutional: Negative for chills, fatigue and fever. HENT: Negative for congestion, sore throat and trouble swallowing. Eyes: Negative for photophobia and pain. Respiratory: Negative for cough, shortness of breath and wheezing. Cardiovascular: Negative for chest pain and palpitations. Gastrointestinal: Negative for abdominal distention, abdominal pain, nausea and vomiting. Genitourinary: Negative for dysuria and frequency. Musculoskeletal: Positive for arthralgias. Negative for back pain and neck stiffness. Skin: Negative for pallor. Neurological: Negative for dizziness, light-headedness and headaches. Psychiatric/Behavioral: Negative for sleep disturbance. The patient is not nervous/anxious. Objective BP 102/68 (BP Site: Left Arm, BP Position: Sitting, BP Cuff Size: Regular) | Pulse 61 | Temp 35.2 C (95.4 F) (Tympanic) | Resp 20 | Wt 89.8 kg (198 lb) | SpO2 95% | BMI 26.85 kg/m | BSA 2.14 m Physical Exam Constitutional: General: He is not in acute distress. Appearance: He is not ill-appearing. HENT: Head: Normocephalic and atraumatic. Right Ear: Tympanic membrane, ear canal and external ear normal. Left Ear: Tympanic membrane, ear canal and external ear normal. Nose: Nose normal. No congestion or rhinorrhea. Mouth/Throat: Mouth: Mucous membranes are moist. Pharynx: Oropharynx is clear. Eyes: General: No scleral icterus. Extraocular Movements: Extraocular movements intact. Conjunctiva/sclera: Conjunctivae normal. Pupils: Pupils are equal, round, and reactive to light. Neck: Vascular: No carotid bruit. Cardiovascular: Rate and Rhythm: Normal rate and regular rhythm. Pulses: Normal pulses. Heart sounds: Normal heart sounds. No murmur heard. No friction rub. No gallop. Pulmonary: Effort: Pulmonary effort is normal. Breath sounds: Normal breath sounds. No wheezing, rhonchi or rales. Abdominal: General: Bowel sounds are normal. There is no distension. Palpations: Abdomen is soft. There is no mass. Tenderness: There is no abdominal tenderness. There is no right CVA tenderness or left CVA tenderness. Musculoskeletal: General: No swelling or tenderness. Normal range of motion. Cervical back: Normal range of motion and neck supple. Right lower leg: No edema. Left lower leg: No edema. Skin: General: Skin is warm and dry. Coloration: Skin is not jaundiced. Findings: No rash. Neurological: General: No focal deficit present. Mental Status: He is oriented to person, place, and time. Cranial Nerves: No cranial nerve deficit. Sensory: No sensory deficit. Motor: No weakness. Psychiatric: Mood and Affect: Mood normal. Behavior: Behavior normal. Latest Reference Range & Units 06/23/24 10:40 Triglycerides <=174 mg/dL 71 Cholesterol <200 mg/dL 88 Non-HDL Cholesterol <=159 mg/dL 55 HDL Cholesterol >39 mg/dL 33 (L) LDL Cholesterol <=129 mg/dL 41 SODIUM 135 - 146 mmol/L 139 POTASSIUM 3.5 - 5.1 mmol/L 4.6 CHLORIDE 98 - 107 mmol/L 101 CO2 22 - 32 mmol/L 27 BUN 6 - 20 mg/dL 23 (H) CREATININE 0.6 - 1.2 mg/dL 1.1 EGFR >=60 mL/min 61 ANION GAP 7 - 15 mmol/L 11 GLUCOSE 70 - 120 mg/dL 102 CALCIUM 8.4 - 10.2 mg/dL 9.5 Protein 6.0 - 8.3 g/dL 6.3 Estimated Average Glucose <126 mg/dL 128 (H) Hemoglobin A1C 4.0 - 5.6 % 6.1 (H) TSH 0.27 - 4.20 uIU/mL 4.66 (H) TSH WITH FREE T4 IF INDICATED Rpt ! T4, Free 0.9 - 1.7 ng/dL 1.8 (H) CBC Rpt ! WBC 4.00 - 10.80 K/uL 8.37 RBC 4.50 - 5.25 M/uL 4.11 HGB 14.0 - 16.8 g/dL 12.6 (L) HCT 40.0 - 48.4 % 39.0 (L) MCV 82.0 - 99.5 fL 94.9 MCH 27.0 - 34.0 pg 30.7 MCHC 32.0 - 36.0 g/dL 32.3 RDW 11.5 - 15.5 % 14.2 PLT 140 - 400 K/uL 204 MPV 6.6 - 11.1 fL 9.8 CBC WITH WBC DIFFERENTIAL Rpt ! Absolute Neutrophils 1.80 - 7.70 K/uL 5.56 Absolute Lymphocytes 1.00 - 4.80 K/ul 1.75 Absolute Monocytes 0.00 - 1.10 K/uL 0.76 Absolute Eosinophils 0.00 - 0.70 K/uL 0.28 Absolute Basophils 0.00 - 0.20 K/uL 0.02 Albumin 3.8 - 5.0 g/dL 3.9 AST 10 - 50 U/L 16 ALT 10 - 50 U/L 13 Alkaline Phosphatase 35 - 130 U/L 339 (H) Bilirubin, Total <=1.2 mg/dL 0.8 (L): Data is abnormally low (H): Data is abnormally high !: Data is abnormal Rpt: View report in Results Review for more information ASSESSMENT/PLAN: Type 2 diabetes mellitus with diabetic polyneuropathy, without long-term current use of insulin (HCC) (Primary) Hypertension associated with type 2 diabetes mellitus (HCC) Hyperlipidemia associated with type 2 diabetes mellitus (HCC) Acquired hypothyroidism PAD (peripheral artery disease) (HCC) Ascending aorta dilation (HCC) Abdominal aortic aneurysm (AAA) without rupture, unspecified part (HCC) Atherosclerosis of [place] coronary artery of [place] heart without angina pectoris BPH without obstruction/lower urinary tract symptoms Myasthenia gravis (HCC) Normocytic anemia - CBC WITH WBC DIFFERENTIAL; Future; Expected date: 07/04/2024 Plan: Patient presents to office for routine follow-up. Feeling okay overall. Still adjusting to assisted living facility Continue current medications. Diabetes remains well controlled on metformin 500 mg twice daily Did explained to patient that is free T4 slightly elevated but barely. Would continue current dose of levothyroxine 150 mcg daily Mild drop in hemoglobin on recent CBC. May be anemia of chronic inflammation or CKD 3. Would like to repeat CBC in 4 weeks. Will follow-up. Will repeat other labs again in 6 months Counseled on importance of yearly eye, foot exams. These are currently up-to-date Follow-up with Cardiology as scheduled Defers Tdap at this time. Other vaccines currently up-to-date Follow Up: Return in about 6 months (around 01/02/2025), or if symptoms worsen or fail to improve, for Return with Physician. | For: Return with Physician | Check-out note: 6 month follow up CBC in 4 weeks, no fasting needed Other labs 6 months I spent a total of 40-54 minutes (exact time 45 mins) on the date of service in preparation, delivery, and documentation of the care provided to Hans Valera excluding any time spent in the performance of separately billed services or time spent by another provider/QHP. Terry Vasquez DO documented in this encounter Nursing Notes * Mattie Cespedes MED ASSIST - 07/04/2024 1:20 PM EDT Hans Valera presents for 6 month recheck. Patient declines TDaP today. Medications & HM reviewed. documented in this encounter Plan of Treatment Upcoming Encounters Date Type Department Care Team (Late st Contact Info) Description 08/02/2024 11:00 AM EDT Office Visit Neurology [facility] [place] [address] [place] [phone] Jeffrey Schwartz MD [address] [place] [address] 08/09/2024 10:00 AM EST Appointment Vascular Lab [facility], [address] [address] 08/09/2024 10:30 AM EST Appointment Vascular Lab [facility], [address] [address] 08/09/2024 11:00 AM EST Appointment Vascular Lab [facility], [address] [address] 08/09/2024 11:45 AM EST Office Visit Vascular Surg [facility], [address] [address] Dashawn Bergeron MD [address] [place] [address] 08/18/2024 9:00 AM EST Office Visit Dermatology [facility] [place] [address] [place] [address] Stephenie Jacobs PA-C [address] [place] [address] 11/30/2024 3:00 PM EST Nurse Only Ancillary [facility] [address] [place] [id number] [place], Nurse [facility] [address] [place] [address] 01/02/2025 1:20 PM EDT Office Visit General Internal Medicine [facility] [address] [facility] [address] Terry Vasquez, [address] [place] [address] 01/30/2025 1:30 PM EDT Office Visit Cardiology, [facility] [address] [place] [address] Kayden Lara, DO [address] [place] [address] Health Maintenance Due Date Last Done Comments DTap/Tdap Vaccines (3 - Td or Tdap) 01/20/2024 01/19/2014, 08/08/2013, 11/08/2003 COVID-19 Vaccine ( season) 2024 07/20/2023, 07/20/2023, 06/24/2022, Additional history exists Postponed from 06/04/2024 (Unavailable) Depression Screening 11/20/2024 11/20/2023 Adult Wellness Visit 11/25/2024 11/25/2023 Albumin/Creatinine Ratio 12/20/2024 024, 06/12/2022, 09/08/2019 HbA1c 12/21/2024 06/23/2024, 03/04, 12/21/2023, Additional history exists Diabetic Eye Exam 12/28/2024 12/29/2023, , 01/06/2023, Additional history exists Diabetic Foot Exam 03/28/2025 03/28/2024, 0 12/15/2022, 12/03/2021, Additional history exists TSH 06/23/2025 06/23/2024, 03/04, 12/21/2023, Additional history exists Zoster Vaccines Completed 12/13/2019, 12/0 03/2019, 08/07/2009 Pneumococcal Vaccine: 65+ Years Completed 12/15/2022, 06/17/2021, 08/13/2016, Additional history exists Influenza Vaccine (FLU shot) Completed 06/07/2024, 06/22/2023, 06/09/2022, Additional history exists HPV (Gardasil) [...] as of this encounter Visit Diagnoses Diagnosis Type 2 diabetes mellitus with diabetic polyneuropathy, without long-term current use of insulin (HCC)- Primary Hypertension associated with type 2 diabetes mellitus (HCC) Hyperlipidemia associated with type 2 diabetes mellitus (HCC) Acquired hypothyroidism Unspecified hypothyroidism PAD (peripheral artery disease) (HCC) Peripheral vascular disease, unspecified Ascending aorta dilation (HCC) Thoracic aortic ectasia Abdominal aortic aneurysm (AAA) without rupture, unspecified part (HCC) Atherosclerosis of [place] coronary artery of [place] heart without angina pectoris BPH without obstruction/lower urinary tract symptoms Hypertrophy of prostate without urinary obstruction and other lower urinary tract symptoms (LUTS) Myasthenia gravis (HCC) Myasthenia gravis without exacerbation Normocytic anemia Anemia, unspecified documented in this encounter Advance Directives Documents on File Type Date Recorded 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
--- OUTSIDE RECORDS SUMMARY | 2024-08-12 04:29 | External Medical Summary | Summary of Care ---
Author Name Unknown Organization [facility] Address [address] [place] [address] Phone [phone] Care Team Providers Care Abalone Sheller Name Role Phone Terry Vasquez DO Primary Care Provid er Reason for Visit * Reason Comments Outpatient Testing Encounter Details Date Type Department Care Team (Late st Contact Info) Description 06/23/2024 10:50 AM EDT Laboratory Laboratory, [facility] [address] [place] [phone] [facility] [address] [place] [address] Type 2 diabetes mellitus with diabetic polyneuropathy, without long-term current use of insulin (HCC); Hypertension associated with type 2 diabetes mellitus (HCC); Hyperlipidemia associated with type 2 diabetes mellitus (HCC); Acquired hypothyroidism Allergies No known active allergiesdocumented as of this encounter (statuses as of 06/23/2024) Medications Medication Sig Dispensed Refills Start Date End Date Status ASPIRIN EC 81 MG PO TBECIndications:Coron keshav atherosclerosis of [place] coronary artery Take by mouth every evening. [...] MOUTH EVERY MORNING 100 Tablet 3 05/15/2024 Active Famotidine 20 MG Oral Tablet (Pepcid) TAKE ONE TABLET BY MOUTH TWICE A DAY. 180 Tablet 2 06/12/2024 Active Losartan Potassium 50 MG Oral Tablet (Cozaar)Indications:P AD (peripheral artery disease) (HCC),HTN, goal below 130/80 TAKE ONE TABLET BY MOUTH EVERY DAY 90 Tablet 2 06/12/2024 5 Active documented as of this encounter (statuses as of 06/23/2024) Active Problems Problem Noted Date Diagnosed Date [...] pulmonary embolism 10/04/2012 Overview: Bilateral Atherosclerosis of [place] co ronary artery of [place] heart without angina pectoris 07/23/2010 Hyperlipidemia associated with type 2 diabetes m ellitus 01/10/2010 Hypertension associated with type 2 diabetes aixa litus 01/10/2010 documented as of this encounter (statuses as of 06/23/2024) Resolved Problems Problem Noted Date Diagnosed Date Resolved Date 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/25/2015 12/03/2021 Edema 06/05/2014 12/03/2021 Right atrial enlargement 03/16/201411/2021 Right ventricular enlargement 03/16/2014 12/03/2021 Pulmonary embolism, bilateral 07/12/2013 03/28/2024 Pre-operative cardiovascular examination 01/30/2013 03/25/2015 documented as of this encounter (statuses as of 06/23/2024) Immunizations Name Administration Dates Next Due COVID-19 mRNA, LNP-s, No Pre serve, 2-Dose Series (Moderna) 07/28/2021,12/08/2020,11/10/2020 COVID-19, MRNA-LNP, 23-24, P F, 30 MCG/0.3 mL, 12 YRS AND ABOVE, IM (PFIZER-Comirnaty) 07/20/2023 COVID-19, mRNA, LNP-s, PF, B ooster, 100mcg/0.5mg (Moderna) 03/12/2022 Covid-19, Mrna, Lnp-s, Pf, B ivalent, 30 Mcg, IM, 12 yrs and above (Pfizer) 06/24/2022 Pneumococcal Conjugate Vacci ne, 20-valent ([id number]) 12/15/2022 Pneumococcal Polysaccharide PPV23 (Pneumovax) 06/17/2021 RSV Vac., Bivalent, Perfusio n F, Pf,0.5 Ml (Abrysvo) 07/20/2023 Seasonal Influenza, PF, 6 M & above, IM , (FluLaval or Fluzone) 07/02/2020 Seasonal Influenza, Quad, Nasal (Flumist) 2017 Seasonal Influenza, Quadriva lent Hd (Fluzone Hd) 06/22/2023,06/09/2022,06/17/2021 Seasonal Influenza, Trivalen t, (IIV3), with Preserv, (Fluzone) 07/13/2013 TD - Tetanus/Diptheria (ADULT) 11/08/2003 TDAP (age [...] PM EDT Office Visit General Internal Medicine [facility] [address] [place] [address] Terry Vasquez, [address] [address] 08/02/2024 11:00 AM EDT Office Visit Neurology [facility] [place] [address] [place] [phone] Jeffrey Schwartz MD [facility] [place] [address] 08/09/2024 10:00 AM EST Appointment Vascular Lab [facility], [address] [address] 08/09/2024 10:30 AM EST Appointment Vascular Lab [facility], [address] [address] 08/09/2024 11:00 AM EST Appointment Vascular Lab [facility], [address] [address] 08/09/2024 11:45 AM EST Office Visit Vascular Surg [facility], [address] [address] Dashawn Bergeron MD [address] [place] [address] 08/18/2024 9:00 AM EST Office Visit Dermatology [facility] 200 [facility] [place] [address] Stephenie Jacobs PA-C 200 [facility] [place] [address] 11/30/2024 3:00 PM EST Nurse Only Ancillary [address] [phone] Have, Nurse Annual [address] [address] 01/30/2025 1:30 PM EDT Office Visit Cardiology, [facility] [address] [place] [address] Kayden Lara DO [address] [place] [address] Pending Results Name Type Priority Associated Diagnoses Date /Time COMPREHENSIVE METABOLIC PANEL Lab Routine Type 2 diabetes mellitus with diabetic polyneuropathy, without long-term current use of insulin (HCC) Hypertension associated with type 2 diabetes mellitus (HCC) Hyperlipidemia associated with type 2 diabetes mellitus (HCC) Acquired hypothyroidism 06/23/2024 10:40 AM EDT CBC WITH WBC DIFFERENTIAL Lab Routine Type 2 diabetes mellitus with diabetic polyneuropathy, without long-term current use of insulin (HCC) Hypertension associated with type 2 diabetes mellitus (HCC) Hyperlipidemia associated with type 2 diabetes mellitus (HCC) Acquired hypothyroidism 06/23/2024 10:40 AM EDT LIPID PANEL WITH DIRECT LDL IF TG IS HIGH Lab Routine Type 2 diabetes mellitus with diabetic polyneuropathy, without long-term current use of insulin (HCC) Hypertension associated with type 2 diabetes mellitus (HCC) Hyperlipidemia associated with type 2 diabetes mellitus (HCC) Acquired hypothyroidism 06/23/2024 10:40 AM EDT HEMOGLOBIN A1C Lab Routine Type 2 diabetes mellitus with diabetic polyneuropathy, without long-term current use of insulin (HCC) Hypertension associated with type 2 diabetes mellitus (HCC) Hyperlipidemia associated with type 2 diabetes mellitus (HCC) Acquired hypothyroidism 06/23/2024 10:40 AM EDT TSH WITH FREE T4 IF INDICATED Lab Routine Type 2 diabetes mellitus with diabetic polyneuropathy, without long-term current use of insulin (HCC) Hypertension associated with type 2 diabetes mellitus (HCC) Hyperlipidemia associated with type 2 diabetes mellitus (HCC) Acquired hypothyroidism 06/23/2024 10:40 AM EDT CBC Lab Routine Type 2 diabetes mellitus with diabetic polyneuropathy, without long-term current use of insulin (HCC) Hypertension associated with type 2 diabetes mellitus (HCC) Hyperlipidemia associated with type 2 diabetes mellitus (HCC) Acquired hypothyroidism 06/23/2024 10:40 AM EDT DIFFERENTIAL, AUTOMATED Lab Routine Type 2 diabetes mellitus with diabetic polyneuropathy, without long-term current use of insulin (HCC) Hypertension associated with type 2 diabetes mellitus (HCC) Hyperlipidemia associated with type 2 diabetes mellitus (HCC) Acquired hypothyroidism 06/23/2024 10:40 AM EDT Health Maintenance Due Date Last Done Comments DTap/Tdap Vaccines (3 - Td or Tdap) 01/20/2024 01/19/2014, 08/08/2013, 11/08/2003 COVID-19 Vaccine ( season) 2024 07/20/2023, 07/20/2023, 06/24/2022, Additional history exists HbA1c 09/20/2024 03/21/2024, 12/02, 06/15/2023, Additional history exists Depression Screening 11/20/2024 11/20/2023 Adult Wellness Visit 11/25/2024 11/25/2023 Albumin/Creatinine Ratio 12/20/202412/20/2 024, 06/12/2022, 09/08/2019 Diabetic Eye Exam 12/28/2024 12/29/2023, , 01/06/2023, Additional history exists TSH 03/21/2025 03/21/2024, 12/02, 06/15/2023, Additional history exists Diabetic Foot Exam 03/28/2025 03/28/2024, 0 12/15/2022, 12/03/2021, Additional history exists Zoster Vaccines Completed 12/13/2019, [...] without long-term current use of insulin (HCC) Hypertension associated with type 2 diabetes mellitus (HCC) Hyperlipidemia associated with type 2 diabetes mellitus (HCC) Acquired hypothyroidism Unspecified hypothyroidism documented in this encounter Advance Directives Documents on File Type Date Recorded Patient Case Supervisor Expl anation Advance Directives and Living Will [...] Advance Directives occurred with: Patient Care Teams Abalone Sheller Relationship Specialty Start Date End Date Terry Vasquez DO [address] [place] [address] [phone] PCP - General Internal Medicine 12/12/21 documented as of this encounter
--- OUTSIDE RECORDS SUMMARY | 2024-08-12 04:29 | External Medical Summary | Summary of Care ---
Author Name Unknown Organization [facility] Address [address] [place] [address] Phone [phone] Care Team Providers Care Slime Plant Operator Name Role Phone Terry Vasquez DO Primary Care Provid er Reason for Visit * Reason Comments Outpatient Testing Encounter Details Date Type Department Care Team (Late st Contact Info) Description 07/04/2024 2:00 PM EDT Laboratory Laboratory [facility] [address] [place] [phone] [place] [address] [facility] [address] Normocytic anemia Allergies No known active allergiesdocumented as of this encounter (statuses as of 07/04/2024) Medications Medication Sig Dispensed Refills Start Date End Date Status ASPIRIN EC 81 MG PO TBECIndications:Coron keshav atherosclerosis of [place] coronary artery Take by mouth every evening. [...] pulmonary embolism 10/04/2012 Overview: Bilateral Atherosclerosis of [place] co ronary artery of [place] heart without angina pectoris 07/23/2010 Hyperlipidemia associated [...] (Pfizer) 06/24/2022 Pneumococcal Conjugate Vacci ne, 20-valent ([id number]) 12/15/2022 Pneumococcal Polysaccharide PPV23 (Pneumovax) 06/17/2021 RSV [...] No 12/27/2023 Does the household have a [facility] source of income? (Household - for ages [...] Visit Neurology [address] [place] [phone] Jeffrey Schwartz MD [address] [place] [address] 08/09/2024 10:00 AM EST Appointment Vascular Lab [facility] [address] [place] [address] 08/09/2024 10:30 AM EST Appointment Vascular Lab [facility] [place] [address] [place] [address] 08/09/2024 11:00 AM EST Appointment Vascular Lab [facility] [place] [address] [place] [address] 08/09/2024 11:45 AM EST Office Visit Vascular Surg [facility] [address] [place] [address] Dashawn Bergeron MD [address] [place] [address] 08/18/2024 9:00 AM EST Office Visit Dermatology [facility] [place] [address] [place] [address] Stephenie Jacobs PA-C [address] [place] [address] 11/30/2024 3:00 PM EST Nurse Only [address] [phone] Doretha, Nurse Annual [facility] [address] [place] [address] 01/02/2025 1:20 PM EDT Office Visit General Internal Medicine [facility] [address] [place] [address] Terry Vasquez, DO [address] [place] [address] 01/30/2025 1:30 PM EDT Office Visit Cardiology, [facility] [address] [place] [address] Kayden Lara, DO [address] [place] [address] Health Maintenance Due Date Last Done Comments [...] Procedure Name Priority Date/Time Associated Diagnosis Comments DIFFERENTIAL, AUTOMATED Routine 07/04/2024 2:01 PM EDT Normocytic anemia CBC Routine 07/04/2024 2:01 PM EDT Normocytic anemia CBC Routine 07/04/2024 2:01 PM EDT Normocytic anemia documented in this encounter Results * DIFFERENTIAL, AUTOMATED (07/04/2024 2:01 PM EDT) WBC 7.06 4.00 - 10.80 K/uL 07/04/2024 2:07 PM EDT [facility]-02 Neutrophils % 56.1 40.0 - 75.0 % 07/04/2024 2:07 PM EDT [facility]02 Lymphocytes % 29.9 18.0 - 42.0 % 07/04/2024 2:07 PM EDT [facility]-02 Monocytes % 10.3 1.0 - 11.0 % 07/04/2024 2:07 PM EDT [facility] 56-02 Eosinophils % 3.1 0.0 - 6.0 % 07/04/2024 2:07 PM EDT [facility] 56-02 Basophils % 0.6 0.0 - 2.0 % 07/04/2024 2:07 PM EDT [facility] 56-02 Absolute Neutrophils 3.96 1.80 - 7.70 K/uL 07/04/2024 2:07 PM EDT [facility] 56 Absolute Lymphocytes 2.11 1.00 - 4.80 K/ul 07/04/2024 2:07 PM EDT [facility] 56 Absolute Monocytes 0.73 0.00 - 1.10 K/uL 07/04/2024 2:07 PM EDT [facility] 56- Absolute Eosinophils 0.22 0.00 - 0.70 K/uL 07/04/2024 2:07 PM EDT [facility] 56 Absolute Basophils 0.04 0.00 - 0.20 K/uL 07/04/2024 2:07 PM EDT [facility] 56 Blood Venous blood specimen / Unknown Venipuncture / Unknown 07/04/2024 2:01 PM EDT 07/04/2024 2:01 PM EDT Terry Vasquez DO LAB BLOOD OR DERABLES Performing Organization Address City/State/[facility] Co de Phone Number [facility] 56 [address] [place] [address] * (ABNORMAL) CBC (07/04/2024 2:01 PM EDT) WBC 7.06 4.00 - 10.80 K/uL 07/04/2024 2:07 PM EDT [facility] 56 RBC 4.18 4.50 - 5.25 M/uL 07/04/2024 2:07 PM EDT [facility] 56 HGB 12.9(L) 14.0 - 16.8 g/dL 07/04/2024 2:07 PM EDT [facility] 56 HCT 39.3(L) 40.0 - 48.4 % 07/04/2024 2:07 PM EDT [facility] 56- MCV 94.0 82.0 - 99.5 fL 07/04/2024 2:07 PM EDT [facility] 56 MCH 30.9 27.0 - 34.0 pg 07/04/2024 2:07 PM EDT [facility] 56 MCHC 32.8 32.0 - 36.0 g/dL 07/04/2024 2:07 PM EDT [facility] 56- RDW 14.2 11.5 - 15.5 % 07/04/2024 2:07 PM EDT [facility] 56-02 PLT 222 140 - 400 K/uL 07/04/2024 2:07 PM EDT [facility] 56-02 MPV 9.4 6.6 - 11.1 fL 07/04/2024 2:07 PM EDT [facility] 56-02 Blood Venous blood specimen / Unknown Venipuncture / Unknown 07/04/2024 2:01 PM EDT 07/04/2024 2:01 PM EDT Terry Vasquez DO LAB BLOOD OR DERABLES [facility] [address]- [address] [place] [address] documented in this encounter Visit Diagnoses Diagnosis Normocytic anemia Anemia, unspecified documented in this encounter Advance Directives Documents on File Type Date Recorded Patient Short Filler Bunch Machine Operator Expl anation Advance Directives and Living Will [...] Advance Directives occurred with: Patient Care Teams Slime Plant Operator Relationship Specialty Start Date End Date Terry Vasquez DO [address] [place] [id number] PCP - General Internal Medicine 12/12/21 documented as of this encounter
--- OUTSIDE RECORDS SUMMARY | 2024-08-12 04:29 | External Medical Summary ---
Author Name Unknown Address Unknown Organization [id number]:[facility] [place] [address] Laboratory Report Ordering Provider Test Date Status MAURA DAVID 07/04/2024 14:01:48 Final Observation Date Value Abnormality Reference (Units ) Status WBC, Total 07/04/2024 14:01:48 7.06 4.00-10.8 0 (K/uL) Final RBC 07/04/2024 14:01:48 4.18 4.50-5.25 (M/uL) Final Hemoglobin 07/04/2024 14:01:48 12.9 Below low normal 14 .0-16.8 (g/dL) Final HCT 07/04/2024 14:01:48 39.3 Below low normal 40. 0-48.4 (%) Final MCV 07/04/2024 14:01:48 94.0 82.0-99.5 (fL) Final MCH 07/04/2024 14:01:48 30.9 27.0-34.0 (pg) Final MCHC 07/04/2024 14:01:48 32.8 32.0-36.0 (g/dL) Final RDW 07/04/2024 14:01:48 14.2 11.5-15.5 (%) Final Platelets 07/04/2024 14:01:48 222 140-400 (K /uL) Final MPV 07/04/2024 14:01:48 9.4 6.6-11.1 ( fL) Final Performing Location [facility] [place] [address]
--- OUTSIDE RECORDS SUMMARY | 2024-08-12 04:29 | External Medical Summary ---
Author Name Unknown Address Unknown Organization [id number]:[facility] [place] [address] [place] [address] Laboratory Report Ordering Provider Test Date Status MAURA DAVID 06/23/2024 10:40:06 Final Observation Date Value Abnormality Reference (Units ) Status BUN 06/23/2024 10:40:06 23 Above high normal 6-20 (mg/dL) Final Creatinine 06/23/2024 10:40:06 1.1 0.6-1.2 (mg/dL) Final Glomerular filtration rate/1.73 sq M.predicted [Volume Rate/Area] in Serum, Plasma or Blood by Creatinine-based formula (CKD-EPI) 06/23/2024 10:40:06 61 >=60 (mL/min) Final eGFR is calculated based on the CKD-EPI 2020 equation. Sodium 06/23/2024 10:40:06 139 135-146 (m mol/L) Final Potassium 06/23/2024 10:40:06 4.6 3.5-5.1 (m mol/L) Final Cl 06/23/2024 10:40:06 101 98-107 (mm ol/L) Final CO2 06/23/2024 10:40:06 27 22-32 (mmo l/L) Final Anion gap 06/23/2024 10:40:06 11 7-15 (mmol /L) Final Glucose 06/23/2024 10:40:06 102 70-120 (mg /dL) Final Albumin 06/23/2024 10:40:06 3.9 3.8-5.0 (g /dL) Final AST (Aspartate aminotransferase) 06/23/2024 10:40:06 16 10-50 (U/L) Fin al Alk Phos 06/23/2024 10:40:06 339 Above high normal 35 -130 (U/L) Final Bilirubin, Total 06/23/2024 10:40:06 0.8 <=1 .2 (mg/dL) Final Calcium 06/23/2024 10:40:06 9.5 8.4-10.2 ( mg/dL) Final Protein 06/23/2024 10:40:06 6.3 6.0-8.3 (g /dL) Final ALT (Alanine aminotransferase) 06/23/2024 10:40:06 13 10-50 (U/L) Gerard fernandes Performing Location [facility] [place] [address] [facility] [address]
--- OUTSIDE RECORDS SUMMARY | 2024-08-12 04:29 | External Medical Summary | Summary of Care ---
Author Name Unknown Organization [facility] Address [address] [place] [address] Phone [phone] Care Team Providers Care Press Operator Meat Name Role Phone Terry Vasquez DO Primary Care Provid er Encounter Details Date Type Department Care Team (Late st Contact Info) Description 07/19/2024 Orders Only General Internal Medicine [facility] 200 [facility] [place] [address] Terry Vasquez DO [address] [facility] [address] Allergies No known active allergiesdocumented as of this encounter (statuses as of 07/19/2024) Medications Medication Sig Dispensed Refills Start Date End Date Status ASPIRIN EC 81 MG PO TBECIndications:Coron keshav atherosclerosis of [place] coronary artery Take by mouth every evening. [...] as of this encounter (statuses as of 07/19/2024) Active Problems Problem Noted Date Diagnosed Date [...] pulmonary embolism 10/04/2012 Overview: Bilateral Atherosclerosis of [place] co ronary artery of [place] heart without angina pectoris 07/23/2010 Hyperlipidemia associated with type 2 diabetes m ellitus 01/10/2010 Hypertension associated with type 2 diabetes aixa litus 01/10/2010 documented as of this encounter (statuses as of 07/19/2024) Resolved Problems Problem Noted Date Diagnosed Date Resolved Date 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/25/2015 12/03/2021 Edema 06/05/2014 12/03/2021 Right atrial enlargement 03/16/201411/2021 Right ventricular enlargement 03/16/2014 12/03/2021 Pulmonary embolism, bilateral 07/12/2013 03/28/2024 Pre-operative cardiovascular examination 01/30/2013 03/25/2015 documented as of this encounter (statuses as of 07/19/2024) Immunizations Name Administration Dates Next Due COVID-19 mRNA, LNP-s, No Pre serve, 2-Dose Series (Moderna) 07/28/2021,12/08/2020,11/10/2020 COVID-19, MRNA-LNP, 23-24, P F, 30 MCG/0.3 mL, 12 YRS AND ABOVE, IM (PFIZER-Comirnaty) 07/20/2023 COVID-19, mRNA, LNP-s, PF, B ooster, 100mcg/0.5mg (Moderna) 03/12/2022 Covid-19, Mrna, Lnp-s, Pf, B ivalent, 30 Mcg, IM, 12 yrs and above (Pfizer) 06/24/2022 Pneumococcal Conjugate Vacci ne, 20-valent ([id number]) 12/15/2022 Pneumococcal Polysaccharide PPV23 (Pneumovax) 06/17/2021 RSV [...] Visit Neurology [address] [place] [phone] Jeffrey Schwartz MD [address] [place] [address] 08/09/2024 10:00 AM EST Appointment Vascular Lab [facility] [address] [place] [address] 08/09/2024 10:30 AM EST Appointment Vascular Lab [facility] [place] [address] [place] [address] 08/09/2024 11:00 AM EST Appointment Vascular Lab [facility] [place] [address] [place] [address] 08/09/2024 11:45 AM EST Office Visit Vascular Surg [facility] [address] [place] [address] Dashawn Bergeron MD [address] [place] [address] 08/18/2024 9:00 AM EST Office Visit Dermatology [facility] [place] [address] [place] [address] Stephenie Jacobs PA-C [address] [place] [address] 11/30/2024 3:00 PM EST Nurse Only Ancillary [address] [place] [address] Doretha, Nurse Annual [facility] [address] [place] [address] [place], [place] [address] 01/02/2025 1:20 PM EDT Office Visit General Internal [facility] 200 [facility] [place] [address] Terry Vasquez, DO 200 [facility] [place] [address] 01/30/2025 1:30 PM EDT Office Visit Cardiology, [facility] [address] [place] [address] Kayden Lara, DO [address] [place] [address] Health Maintenance Due Date Last Done Comments [...] 12/15/2022, 12/03/2021, Additional history exists TSH 06/23/2025 07/13/2024, 06/05, 03/21/2024, Additional history exists Zoster [...] Procedure Name Priority Date/Time Associated Diagnosis Comments CHEMISTRY-OUTSIDE Routine 07/13/2024 TSH Routine 07/13/2024 documented in this encounter Results * (ABNORMAL) TSH (07/13/2024) TSH - OUTSIDE LAB 5.50(A) 0.450 - 5.330 UIU/ML OUTSIDE LAB (SEE SCANNED REPORT) Blood Venous blood specimen / Unknown 07/13/2024 History Per Patient LAB BLOOD ORDERABLES OUTSIDE LAB (SEE SCANNED REPORT) * CHEMISTRY-OUTSIDE (07/13/2024) Not all results display below - see scan for full detail OUTSIDE LAB (SEE SCANNED REPORT) Comment:SCAN INCL: [facility]: LYME, FOLATE, VITB12, VITD, CBCD,CMP, MAG,RPR CREATININE 1.1 0.6 - 1.5 MG/DL OUTSIDE LAB (SEE SCANNED REPORT) EGFR 68 OUTSIDE LA B (SEE SCANNED REPORT) POTASSIUM 4.3 3.6 - 5.1 MMOL/L OUTSIDE LAB (SEE SCANNED REPORT) GLUCOSE 99 70 - 99 MG/DL OUTSIDE LAB (SEE SCANNED REPORT) HOURS FASTING OUTSID E LAB (SEE SCANNED REPORT) TRIGLYCERIDES-OUT SIDE LAB OUTSIDE LAB (SEE SCANNED REPORT) CHOLESTEROL-OUTSI DE LAB OUTSIDE LAB (SEE SCANNED REPORT) HDL-OUTSIDE LAB OUTS TEE LAB (SEE SCANNED REPORT) CHOL/HDL RATIO-OUTSIDE LAB OUTSIDE LA B (SEE SCANNED REPORT) LDL (CALCULATED)-OUTS TEE LAB OUTSIDE LAB (SEE SCANNED REPORT) LDL (DIRECT MEASURE)-OUTSIDE LAB OUTSIDE LAB (SEE SCANNED REPORT) HEMOGLOBIN, [id number] LAB OUTSIDE LAB (SEE SCANNED REPORT) PHOSPHORUS-OUTSID E LAB OUTSIDE LAB (SEE SCANNED REPORT) PTH-OUTSIDE LAB OUTS TEE LAB (SEE SCANNED REPORT) MICROALBUMIN RATIO-OUTSIDE LAB OUTSIDE LA B (SEE SCANNED REPORT) PROTEIN, UA-OUTSIDE LAB OUTSIDE LAB (SEE SCANNED REPORT) HGB 12.8 12.4 - 17.3 G/DL OUTSIDE LAB (SEE SCANNED REPORT) 07/13/2024 History Per Patient LABORATORY OUTSIDE LAB (SEE SCANNED REPORT) documented in this encounter Advance Directives Documents on File Type Date Recorded Patient Chart Calculator Expl anation Advance Directives and Living Will [...] Advance Directives occurred with: Patient Care Teams Press Operator Meat Relationship Specialty Start Date End Date Terry Vasquez DO PCP - General Internal Medicine 12/12/21 documented as of this encounter
--- OUTSIDE RECORDS SUMMARY | 2024-08-12 04:29 | External Medical Summary ---
Author Name Unknown Address Unknown Organization K09:[facility] [place] [address] Laboratory Report Ordering Provider Test Date Status MAURA DAVID 07/04/2024 14:01:48 Final Observation Date Value Abnormality Reference (Units ) Status SYNC LEUKOCYTES IN BLOOD BY AUTOMATED COUNT 07/04/2024 14:01:48 7.06 4.00-10.80 (K/uL) Final Segs 07/04/2024 14:01:48 56.1 40.0-75.0 (%) Final Lymphs % 07/04/2024 14:01:48 29.9 18.0-42.0 (%) Final Monos 07/04/2024 14:01:48 10.3 1.0-11.0 (%) Final Eosinophils 07/04/2024 14:01:48 3.1 0.0-6.0 (%) Final Basos 07/04/2024 14:01:48 0.6 0.0-2.0 (%) Final Absolute Segs 07/04/2024 14:01:48 3.96 1.80-7.70 (K/uL) Final Lymphs, absolute 07/04/2024 14:01:48 2.11 1.00-4.80 (K/ul) Final Monos, Abs 07/04/2024 14:01:48 0.73 0.00-1.10 (K/uL) Final Eos, Abs 07/04/2024 14:01:48 0.22 0.00-0.70 (K/uL) Final Basos, Abs 07/04/2024 14:01:48 0.04 0.00-0.20 (K/uL) Final Performing Location [facility] [place] [address]
--- OUTSIDE RECORDS SUMMARY | 2024-08-12 04:29 | External Medical Summary ---
Author Name Unknown Address Unknown Organization [id number][facility] [facility] [address] [place] [address] Laboratory Report Ordering Provider Test Date Status MAURA DAVID 06/23/2024 10:40:06 Final Observation Date Value Abnormality Reference (Units ) Status SYNC LEUKOCYTES IN BLOOD BY AUTOMATED COUNT 06/23/2024 10:40:06 8.37 4.00-10.80 (K/uL) Final Segs 06/23/2024 10:40:06 66.5 40.0-75.0 (%) Final Lymphs % 06/23/2024 10:40:06 20.9 18.0-42.0 (%) Final Monos 06/23/2024 10:40:06 9.1 1.0-11.0 (%) Final Eosinophils 06/23/2024 10:40:06 3.3 0.0-6.0 (%) Final Basos 06/23/2024 10:40:06 0.2 0.0-2.0 (%) Final Absolute Segs 06/23/2024 10:40:06 5.56 1.80-7.70 (K/uL) Final Lymphs, absolute 06/23/2024 10:40:06 1.75 1.00-4.80 (K/ul) Final Monos, Abs 06/23/2024 10:40:06 0.76 0.00-1.10 (K/uL) Final Eos, Abs 06/23/2024 10:40:06 0.28 0.00-0.70 (K/uL) Final Basos, Abs 06/23/2024 10:40:06 0.02 0.00-0.20 (K/uL) Final Performing Location [facility] [address] [place] [address]
--- OUTSIDE RECORDS SUMMARY | 2024-08-12 04:29 | External Medical Summary ---
Author Name Unknown Address Unknown Organization [id number]:[facility] [place] [facility] [address] [facility] [address] Laboratory Report Ordering Provider Test Date Status MAURA DAVID 06/23/2024 10:40:06 Final Observation Date Value Abnormality Reference (Units ) Status HbA1C 06/23/2024 10:40:06 6.1 Above high normal 4. 0-5.6 (%) Final The use of HbA1c to monitor glycemic status is based on normal hemoglobin and HbA composition. This test should not be used in patients with abnormal hemoglobin that affects the half life of the red blood cell or the in vivo glycation rates. Glucose, estimated average 06/23/2024 10:40:06 128 Above high normal <126 (mg/dL) Gerard fernandes Performing Location [facility] - [address] [facility] [address]
--- OUTSIDE RECORDS SUMMARY | 2024-08-12 04:29 | External Medical Summary ---
Author Name Unknown Address Unknown Organization [id number]:[facility] [place] [address] [place] [address] Laboratory Report Ordering Provider Test Date Status MAURA DAVID 06/23/2024 10:40:06 Final Observation Date Value Abnormality Reference (Units ) Status WBC, Total 06/23/2024 10:40:06 8.37 4.00-10.8 0 (K/uL) Final RBC 06/23/2024 10:40:06 4.11 4.50-5.25 (M/uL) Final Hemoglobin 06/23/2024 10:40:06 12.6 Below low normal 14 .0-16.8 (g/dL) Final HCT 06/23/2024 10:40:06 39.0 Below low normal 40. 0-48.4 (%) Final MCV 06/23/2024 10:40:06 94.9 82.0-99.5 (fL) Final MCH 06/23/2024 10:40:06 30.7 27.0-34.0 (pg) Final MCHC 06/23/2024 10:40:06 32.3 32.0-36.0 (g/dL) Final RDW 06/23/2024 10:40:06 14.2 11.5-15.5 (%) Final Platelets 06/23/2024 10:40:06 204 140-400 (K /uL) Final MPV 06/23/2024 10:40:06 9.8 6.6-11.1 ( fL) Final Performing Location [facility] [place] [address] [place] [address]
--- OUTSIDE RECORDS SUMMARY | 2024-08-12 04:29 | External Medical Summary | Summary of Care ---
Author Name Unknown Organization [facility] Address [address] [place] [address] Phone [phone] Care Team Providers Care Automatic Folder Seamer Name Role Phone Terry Vasquez DO Primary Care Provid er Reason for Visit * Reason Onset Date Comments Advice 03/23/2024 Encounter Details Date Type Department Care Team ([facility] Contact Info) Description 03/23/2024 Telephone Family Practice [address] [phone] Terry Vasquez DO [address] [place] [phone] Advice Allergies No known active allergiesdocumented as of this encounter (statuses as of 06/20/2024) Medications Medication Sig Dispensed Refills Start Date End Date Status ASPIRIN EC 81 MG PO TBECIndications:Dickson nary atherosclerosis of [place] coronary artery Take by mouth every evening. [...] 100 Tablet 2 12/13/2023 12/13/19 25 Active Pantoprazole Sodium 40 MG Oral Tablet Delayed Release (Protonix)Indication s:GERD (gastroesophageal reflux disease) TAKE ONE TABLET BY MOUTH EVERY MORNING 100 Tablet 1 01/08/2024 01/08/20 25 Active Finasteride 5 MG Oral Tablet (Proscar)Indications :BPH with obstruction/lower urinary tract symptoms TAKE ONE TABLET BY MOUTH EVERY MORNING 100 Tablet 3 03/03/2023 05/14/20 24 Discontinu ed(Refill) Terazosin HCl 10 MG Oral CapsuleIndications:B PH with obstruction/lower urinary tract symptoms TAKE ONE CAPSULE BY MOUTH AT BEDTIME 90 Capsule 3 03/03/2023 05/05/20 24 Discontinu ed(Refill) Famotidine 20 MG Oral Tablet (Pepcid) TAKE ONE TABLET BY MOUTH TWICE A DAY. 180 Tablet 2 09/20/2023 06/11/20 24 Discontinu ed(Refill) Losartan Potassium 50 MG Oral Tablet (Cozaar)Indications: PAD (peripheral artery disease) (HCC),HTN, goal below 130/80 TAKE ONE TABLET BY MOUTH EVERY DAY 90 Tablet 2 09/20/2023 06/11/20 24 Discontinu ed(Refill) Atorvastatin Calcium 10 MG Oral Tablet (Lipitor) TAKE ONE TABLET BY MOUTH EVERY DAY 100 Tablet 1 10/30/2023 04/27/20 24 Discontinu ed(Refill) metFORMIN HCl ER 500 MG Oral Tablet Extended Release 24 Hour (Glucophage XR)Indications:Type 2 diabetes mellitus with diabetic polyneuropathy, without long-term current use of insulin (HCC) TAKE ONE TABLET BY MOUTH TWICE A DAY WITH MORNING AND EVENING MEALS 200 Tablet 1 10/30/2023 04/27/20 24 Discontinu ed(Refill) Metoprolol Tartrate 50 MG Oral Tablet (Lopressor)Indicatio ns:HTN, goal below 130/80 TAKE ONE TABLET BY MOUTH TWICE A DAY 200 Tablet 1 11/14/2023 05/13/20 24 Discontinu ed(Refill) documented as of this encounter (statuses as of 06/20/2024) Active Problems Problem Noted Date Diagnosed Date [...] pulmonary embolism 10/04/2012 Overview: Bilateral Atherosclerosis of [place] 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 07/23/2010 Hyperlipidemia associated with type 2 diabetes m ellitus 01/10/2010 Hypertension associated with type 2 diabetes aixa litus 01/10/2010 documented as of this encounter (statuses as of 06/20/2024) Resolved Problems Problem Noted Date Diagnosed Date Resolved Date 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/25/2015 12/03/2021 Edema 06/05/2014 12/03/2021 Right atrial enlargement 03/16/201411/2021 Right ventricular enlargement 03/16/2014 12/03/2021 Pulmonary embolism, bilateral 07/12/2013 03/28/2024 Pre-operative cardiovascular examination 01/30/2013 03/25/2015 documented as of this encounter (statuses as of 06/20/2024) Immunizations Name Administration Dates Next Due COVID-19 mRNA, LNP-s, No Pre serve, 2-Dose Series (Moderna) 07/28/2021,12/08/2020,11/10/2020 COVID-19, MRNA-LNP, 23-24, P F, 30 MCG/0.3 mL, 12 YRS AND ABOVE, IM (PFIZER-Comirnaty) 07/20/2023 COVID-19, mRNA, LNP-s, PF, B ooster, 100mcg/0.5mg (Moderna) 03/12/2022 Covid-19, Mrna, Lnp-s, Pf, B ivalent, 30 Mcg, IM, 12 yrs and above (Pfizer) 06/24/2022 Pneumococcal Conjugate Vacci ne, 20-valent ([id number]) 12/15/2022 Pneumococcal Polysaccharide PPV23 (Pneumovax) 06/17/2021 RSV [...] encounter Miscellaneous Notes * Telephone Encounter - Terry Vasquez DO - 03/24/2024 12:25 PM EDT I would be willing to take a look at the form. Would depend on the form itself whether December visit okay for documentation or if would need additional visit Can leave in inbox * Telephone Encounter - Edwin Aguirre OSA - 03/24/2024 8:15 AM EDT Would you be willing to fill out form based on December 2023 appointment? Thanks * Telephone Encounter - Bibiana Cheung OSA - 03/23/2024 4:47 PM EDT Pt's daughter is calling. Needs a Medical Eval Form filled out. documented in this encounter Plan of Treatment Upcoming Encounters Date Type Department Care Team (Late st Contact Info) Description 07/04/2024 1:20 PM EDT Office Visit General Internal Medicine [facility] [address] [place] [address] [place] [address] Terry Vasquez, DO [address] [place] [address] 08/02/2024 11:00 AM EDT Office Visit Neurology [facility] [place] [address] [place] [phone] Jeffrey Schwartz MD [address] [place] [address] 08/09/2024 10:00 AM EST Appointment Vascular Lab [facility] [address] [place] [address] 08/09/2024 10:30 AM EST Appointment Vascular Lab [facility] [address] [place] [address] 08/09/2024 11:00 AM EST Appointment Vascular Lab [facility] [address] [place] [address] 08/09/2024 11:45 AM EST Office Visit Vascular Surg [facility] [address] [place] [address] Dashawn Bergeron MD [address] [place] [address] 08/18/2024 9:00 AM EST Office Visit Dermatology [facility] [address] [place], [place] [address] Stephenie Jacobs PA-C [address] [place], [place] [address] 10/20/2024 1:00 PM EST Office Visit Cardiology, [facility] [address] [place] [address] Kayden Lara, DO [address] [place] [address] 11/30/2024 3:00 PM EST Nurse Only Ancillary [facility] [address] [place] [phone] Doretha Nurse Annual Wellness [place] [address] [place] [address] [place] [address] Health Maintenance Due Date Last Done Comments DTap/Tdap Vaccines (3 - Td or Tdap) 01/20/2024 01/19/2014, 08/08/2013, 11/08/2003 COVID-19 Vaccine ( season) 2024 07/20/2023, 06/24/2022, 03/12/2022, Additional history exists Influenza Vaccine (FLU shot) (#1) 2024 06/22/2023, 06/09/2022, 06/17/2021, Additional history exists HbA1c 09/20/2024 03/21/2024, 12/02, [...] Completed 12/15/2022, 06/17/2021, 08/13/2016, Additional history exists HPV (Gardasil) Vaccine Aged [...] Documents on File Type Date Recorded 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
--- OUTSIDE RECORDS SUMMARY | 2024-08-12 04:30 | External Medical Summary | Summary of Care ---
Author Name Unknown Organization [facility] Address [address] [place] [address] Phone [phone] Care Team Providers Care Locomotive Crane Engineer Name Role Phone Terry Lorenzo DO Primary Care Provid er Reason for Visit * Reason Comments Medication Refill Encounter Details Date Type Department Care Team ([facility] st Contact Info) Description 06/11/2024 Refill Family Practice [address] [phone] Terry Lorenzo DO [address] [place] [phone] PAD (peripheral artery disease) ([facility]); HTN, goal below 130/80 Allergies No known active allergiesdocumented as of this encounter (statuses as of 06/12/2024) Medications Medication Sig Dispensed Refills Start Date End Date Status ASPIRIN EC 81 MG PO TBECIndications:Dickson nary atherosclerosis of [place] coronary artery Take by mouth every evening. [...] 100 Tablet 1 01/08/2024 01/08/20 25 Active Atorvastatin Calcium 10 MG Oral [...] 90 Tablet 2 06/12/2024 06/12/20 25 Active Famotidine 20 MG Oral Tablet (Pepcid) TAKE ONE TABLET BY MOUTH TWICE A DAY. 180 Tablet 2 09/20/2023 06/11/20 24 Discontinu ed(Refill) Losartan Potassium 50 MG Oral Tablet (Cozaar)Indications: PAD (peripheral artery disease) (HCC),HTN, goal below 130/80 TAKE ONE TABLET BY MOUTH EVERY DAY 90 Tablet 2 09/20/2023 06/11/20 24 Discontinu ed(Refill) documented as of this encounter (statuses as of 06/12/2024) Active Problems Problem Noted Date Diagnosed Date [...] pulmonary embolism 10/04/2012 Overview: Bilateral Atherosclerosis of [place] co ronary artery of [place] heart without angina pectoris 07/23/2010 Hyperlipidemia associated with type 2 diabetes m ellitus 01/10/2010 Hypertension associated with type 2 diabetes aixa litus 01/10/2010 documented as of this encounter (statuses as of 06/12/2024) Resolved Problems Problem Noted Date Diagnosed Date Resolved Date 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/25/2015 12/03/2021 Edema 06/05/2014 12/03/2021 Right atrial enlargement 03/16/201411/2021 Right ventricular enlargement 03/16/2014 12/03/2021 Pulmonary embolism, bilateral 07/12/2013 03/28/2024 Pre-operative cardiovascular examination 01/30/2013 03/25/2015 documented as of this encounter (statuses as of 06/12/2024) Immunizations Name Administration Dates Next Due COVID-19 mRNA, LNP-s, No Pre serve, 2-Dose Series (Moderna) 07/28/2021,12/08/2020,11/10/2020 COVID-19, MRNA-LNP, 23-24, P F, 30 MCG/0.3 mL, 12 YRS AND ABOVE, IM ([employer]-Comirnat[employer]ISION MEDICAL) 07/20/2023 COVID-19, mRNA, LNP-s, PF, B ooster, 100mcg/0.5mg (Moderna) 03/12/2022 Covid-19, Mrna, Lnp-s, Pf, B ivalent, 30 Mcg, IM, 12 yrs and above ([employer]) 06/24/2022 Pneumococcal Conjugate Vacci ne, 20-valent ([id number]) 12/15/2022 Pneumococcal Polysaccharide PPV23 (Pneumovax) 06/17/2021 RSV [...] money to buy more. Never true 12/27/19 Within the past 12 months, t he [...] encounter Miscellaneous Notes * Telephone Encounter - Tucker Allison RPh - 06/12/2024 5:25 PM EDTSigned Prescriptions: Disp Refills Famotidine 20 MG Oral Tablet (Pepcid) 180 Ta*2 Sig: TAKE ONE TABLET BY MOUTH TWICE A DAY. Authorizing Provider: TERRY LORENZO User: TUCKER ALLISON Losartan Potassium 50 MG Oral Tablet (Coza*90 Tab*2 Sig: TAKE ONE TABLET BY MOUTH EVERY DAY Authorizing Provider: TERRY LORENZO Ordering User: TUCKER QUACH * Telephone Encounter - Transfer User, Rx Adt - 06/11/2024 12:12 AM EDTPending Prescriptions: Disp Refills Famotidine 20 MG Oral Tablet (Pepcid) 180 Ta*2 Sig: TAKE ONE TABLET BY MOUTH TWICE A DAY. Losartan Potassium 50 MG Oral Tablet (Coza*90 Tab*2 Sig: TAKE ONE TABLET BY MOUTH EVERY DAY documented in this encounter Plan of Treatment Upcoming Encounters Date Type Department Care Team ([facility] st Contact Info) Description 06/27/2024 4:20 PM EDT Office Visit Dermatology [facility] [address] [place] [phone] Garo Arriaga PA-C [address] [place] [phone] 07/04/2024 1:20 PM EDT Office Visit General Internal Medicine [facility] [address] [place] [address] Terry Lorenzo DO [address] [place] [address] 08/02/2024 11:00 AM EDT Office Visit Neurology [facility] [place] [address] [place] [phone] Jeffrey Schwartz MD [address] [place] [address] 08/09/2024 10:00 AM EST Appointment Vascular Lab [facility], [address] [address] 08/09/2024 10:30 AM EST Appointment Vascular Lab [facility], [address] [address] 08/09/2024 11:00 AM EST Appointment Vascular Lab [facility], [address] [phone] 08/09/2024 11:45 AM EST [facility] [address] [place] [address] Dashawn Bergeron MD [address] [place] [address] 08/18/2024 9:00 AM EST Office Visit Dermatology [facility] [address] [facility] [place] [address] Stephenie Jacobs PA-C [address] [place] [address] 10/20/2024 1:00 PM EST Office Visit Cardiology, [facility] [address] [address] Kayden Lara DO [address] [facility] [address] 11/30/2024 3:00 PM EST Nurse Only Ancillary [address] [phone] [place], Nurse Annual Wellness [address] [address] Health Maintenance Due Date Last Done Comments DTap/Tdap Vaccines (3 - Td or Tdap) 01/20/2024 01/19/2014, 08/08/2013, 11/08/2003 COVID-19 Vaccine (2022- season) 2024 07/20/2023, 06/24/2022, 03/12/2022, Additional history exists Influenza Vaccine (FLU shot) (#1) 2024 06/22/2023, 06/09/2022, 06/17/2021, Additional history exists HbA1c 09/20/2024 03/21/2024, 12/02, 06/15/2023, Additional history exists Depression Screening 11/20/2024 11/20/2023 Adult Wellness Visit 11/25/2024 11/25/2023 Albumin/Creatinine Ratio 12/20/2024 024, 06/12/2022, 09/08/2019 Diabetic Eye Exam 12/28/2024 [...] as of this encounter Visit Diagnoses Diagnosis PAD (peripheral artery disease) (HCC) Peripheral vascular disease, unspecified HTN, goal below 130/80 Unspecified essential hypertension documented in this encounter Advance Directives Documents on File Type Date Recorded 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
--- OUTSIDE RECORDS SUMMARY | 2024-08-12 04:30 | External Medical Summary | Summary of Care ---
Author Name Unknown Organization [facility] Address [address] [place] [address] Phone [phone] Care Team Providers Care Ash Kier Boiler Name Role Phone CucacandelarioTerryothy Primary Care Provid er Reason for Referral * Evaluate & Treat - Unlimited Visits (Within 10 days (routine)) - Authorized Specialty Diagnoses / Procedures Referred By Dudley dickson Referred To Contact Neurology Diagnoses Diabetic neuropathy (HCC) Maria Page CRNP [phone] [place] [address] Referral ID Status Reason Start Date Expiration Date Visits Requested Visits Authorized [id number] Authorized Specialty Services Required 05/24/2024 11/20/[phone] Question Answer Referral Priority Within 10 days (routine) Where should this appointment be scheduled? [facility] This patient already has care established with Neurology. Do not place this order. Please use Ask A Doc to expedite care. Acknowledge Is this referral being placed for insurance purposes ONLY No, patient needs appointment [facility] NEUROLOGY REFERRAL QUESTIONS Neuromuscular Encounter Details Date Type Department Care Team (Late st Contact Info) Description 05/27/2024 Orders Only [facility] [place], [address] *DO NOT REMOVE THIS DEPARTMENT* [place] [id number] Request, External Referral Diabetic neuropathy (HCC)* Allergies No known active allergiesdocumented as of this encounter (statuses as of 05/27/2024) Medications Medication Sig Dispensed Refills Start Date End Date Status ASPIRIN EC 81 MG PO TBECIndications:Coron keshav atherosclerosis of [place] coronary artery Take by mouth every evening. [...] OTHER MEDICATIONS 90 Tablet 3 09/10/2023 Active Famotidine 20 MG Oral Tablet (Pepcid) TAKE ONE TABLET BY MOUTH TWICE A DAY. 180 Tablet 2 09/20/2023 4 Active Losartan Potassium 50 MG Oral Tablet (Cozaar)Indications:P AD (peripheral artery disease) (HCC),HTN, goal below 130/80 TAKE ONE TABLET BY MOUTH EVERY DAY 90 Tablet 2 09/20/2023 4 Active Gabapentin 600 MG Oral Tablet (Neurontin) [...] MOUTH AT BEDTIME 90 Capsule 1 05/05/2024 Active Metoprolol Tartrate 50 MG Oral Tablet (Lopressor)Indication s:HTN, goal below 130/80 TAKE ONE TABLET BY MOUTH TWICE A DAY 200 Tablet 1 05/15/2024 5 Active Finasteride 5 MG Oral Tablet (Proscar)Indications: BPH with obstruction/lower urinary tract symptoms TAKE ONE TABLET BY MOUTH EVERY MORNING 100 Tablet 3 05/15/2024 5 Active documented as of this encounter (statuses as of 05/27/2024) Active Problems Problem Noted Date Diagnosed Date [...] pulmonary embolism 10/04/2012 Overview: Bilateral Atherosclerosis of [place] co ronary artery of [place] heart without angina pectoris 07/23/2010 Hyperlipidemia associated with type 2 diabetes m ellitus 01/10/2010 Hypertension associated with type 2 diabetes aixa litus 01/10/2010 documented as of this encounter (statuses as of 05/27/2024) Resolved Problems Problem Noted Date Diagnosed Date Resolved Date 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/25/2015 12/03/2021 Edema 06/05/2014 12/03/2021 Right atrial enlargement 03/16/201411/2021 Right ventricular enlargement 03/16/2014 12/03/2021 Pulmonary embolism, bilateral 07/12/2013 03/28/2024 Pre-operative cardiovascular examination 01/30/2013 03/25/2015 documented as of this encounter (statuses as of 05/27/2024) Immunizations Name Administration Dates Next Due COVID-19 mRNA, LNP-s, No Pre serve, 2-Dose Series (Moderna) 07/28/2021,12/08/2020,11/10/2020 COVID-19, MRNA-LNP, 23-24, P F, 30 MCG/0.3 mL, 12 YRS AND ABOVE, IM (ElectroCore-Comirnat) 07/20/2023 COVID-19, mRNA, LNP-s, PF, B ooster, 100mcg/0.5mg (Moderna) 03/12/2022 Covid-19, Mrna, Lnp-s, Pf, B ivalent, 30 Mcg, IM, 12 yrs and above (Pfizer) 06/24/2022 Pneumococcal Conjugate Vacci ne, 20-valent ([id number]) 12/15/2022 Pneumococcal Polysaccharide PPV23 (Pneumovax) 06/17/2021 RSV Vac., Bivalent, Perfusio n F, Pf,0.5 Ml (Abrysvo) 07/20/2023 Seasonal Influenza, PF, 6 M & above, IM , (FluLaval or Fluzone) 07/02/2020 Seasonal Influenza, Quad, Nasal (Flumist) 2017 Seasonal Influenza, Quadriva lent Hd (Fluzone Hd) 06/22/2023,06/09/2022,06/17/2021 Seasonal Influenza, Split, I IV3, With Preserve, Inj 07/13/2013 TD - Tetanus/Diptheria (ADULT) 11/08/2003 TDAP [...] Care Team (Late st Contact Info) Description 06/27/2024 4:20 PM EDT Office Visit Dermatology [address] [phone] Garo Arriaga PA-C [address] [place] [address] 07/04/2024 1:20 PM EDT Office Visit General Internal Medicine Michelle Navarre[facility] [place] [address] [facility] [place] [address] Terry Vasquez DO [address] [place] [address] 08/09/2024 10:00 AM EST Appointment Vascular Lab [address] [address] 08/09/2024 10:30 AM EST Appointment [facility]ascular [facility] [place] [address] [place] [address] 08/09/2024 11:00 AM EST Appointment Vascular Lab [facility], [place] [address] [place] [address] 08/09/2024 11:45 AM EST Office Visit Vascular Surg [facility], [place] [address] [place] [address] Dashawn Bergeron MD [address] [place] [address] 08/18/2024 9:00 AM EST Office Visit Dermatology [facility] [address] [place] [address] Stephenie Jacobs PA-C [address] [place] [address] 10/20/2024 1:00 PM EST Office Visit Cardiology, [facility] [address] [place] [address] Kayden Lara DO [address] [place] [address] 11/30/2024 3:00 PM EST Nurse Only Ancillary [address] [phone] [place], Nurse Annual Wellness [address] [address] Scheduled Referrals Name Type Priority Associated Diagnoses Orde r Schedule ADULT NEUROLOGY REFERRAL OP Referral Within 10 days (routine) Diabetic neuropathy (HCC) Ordered: 05/27/2024 Health Maintenance Due Date Last Done Comments COVID-19 Vaccine ( season) 2023 07/20/2023, 06/24/2022, 03/12/2022, Additional history exists DTaP,Tdap,and Td Vaccines (3 - Td or Tdap) 01/20/2024 01/19/2014, 08/08/2013, 11/08/2003 Influenza Vaccine (FLU shot) (#1) 2024 06/22/2023, [...] as of this encounter Visit Diagnoses Diagnosis Diabetic neuropathy (HCC)- Primary Type II or unspecified type diabetes mellitus with neurological manifestations, not stated as uncontrolled documented in this encounter Advance Directives Documents on File Type Date Recorded 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
--- OUTSIDE RECORDS SUMMARY | 2024-08-12 04:30 | External Medical Summary | Summary of Care ---
Author Name Unknown Organization [facility] Address [address] [place] [address] Phone [phone] Care Team Providers Care Director Of Radiology Name Role Phone Terry Vasquez DO Primary Care Provid er Reason for Visit * Reason Comments Medication Refill Encounter Details Date Type Department Care Team (Late st Contact Info) Description 05/14/2024 Refill Urology, [facility] [address] [place] [address] Rosalinda Camacho PA-C [address] [place] [address] BPH with obstruction/lower urinary tract symptoms Allergies No known active allergiesdocumented as of this encounter (statuses as of 05/15/2024) Medications Medication Sig Dispensed Refills Start Date End Date Status ASPIRIN EC 81 MG PO TBECIndications:Dickson nary atherosclerosis of [place] coronary artery Take by mouth every evening. [...] polyneuropathy, without long-term current use of insulin ([facility]) Use as directed 4 times a day [...] TWICE A DAY. 180 Tablet 2 09/20/2023 09/19/20 24 Active Losartan Potassium 50 MG Oral Tablet (Cozaar)Indications: PAD (peripheral artery disease) (HCC),HTN, goal below 130/80 TAKE ONE TABLET BY MOUTH EVERY DAY 90 Tablet 2 09/20/2023 09/19/20 24 Active Gabapentin 600 MG Oral Tablet (Neurontin) TAKE 1/2 TABLET EVERY MORNING AND 1 AND 1/2 TABLET EVERY EVENING AND 2 TABLETS BEFORE BEDTIME 360 Tablet 3 09/22/2023 Active Metoprolol Tartrate 50 MG Oral Tablet (Lopressor)Indicatio ns:HTN, goal below 130/80 TAKE ONE TABLET BY MOUTH TWICE A DAY 200 Tablet 1 11/14/2023 11/13/19 25 Active Ezetimibe 10 MG Oral Tablet (Zetia) [...] polyneuropathy, without long-term current use of insulin ([facility]) TAKE ONE TABLET BY MOUTH TWICE A DAY WITH MORNING AND EVENING MEALS 200 Tablet 2 04/27/2024 Active Terazosin HCl 10 MG Oral CapsuleIndications:B PH with obstruction/lower urinary tract symptoms TAKE ONE CAPSULE BY MOUTH AT BEDTIME 90 Capsule 1 05/05/2024 05/05/20 Active Finasteride 5 MG Oral Tablet (Proscar)Indications :BPH with obstruction/lower urinary tract symptoms TAKE ONE TABLET BY MOUTH EVERY MORNING 100 Tablet 3 05/15/2024 05/15/20 25 Active Finasteride 5 MG Oral Tablet (Proscar)Indications :BPH with obstruction/lower urinary tract symptoms TAKE ONE TABLET BY MOUTH EVERY MORNING 100 Tablet 3 03/03/2023 05/14/20 24 Discontinu ed(Refill) documented as of this encounter (statuses as of 05/15/2024) Active Problems Problem Noted Date Diagnosed Date [...] pulmonary embolism 10/04/2012 Overview: Bilateral Atherosclerosis of [place] co ronary artery of [place] heart without angina pectoris 07/23/2010 Hyperlipidemia associated with type 2 diabetes m ellitus 01/10/2010 Hypertension associated with type 2 diabetes aixa litus 01/10/2010 documented as of this encounter (statuses as of 05/15/2024) Resolved Problems Problem Noted Date Diagnosed Date Resolved Date 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/25/2015 12/03/2021 Edema 06/05/2014 12/03/2021 Right atrial enlargement 03/16/201411/2021 Right ventricular enlargement 03/16/2014 12/03/2021 Pulmonary embolism, bilateral 07/12/2013 03/28/2024 Pre-operative cardiovascular examination 01/30/2013 03/25/2015 documented as of this encounter (statuses as of 05/15/2024) Immunizations Name Administration Dates Next Due COVID-19 mRNA, LNP-s, No Pre serve, 2-Dose Series (Moderna) 07/28/2021,12/08/2020,11/10/2020 COVID-19, MRNA-LNP, 23-24, P F, 30 MCG/0.3 mL, 12 YRS AND ABOVE, IM (PFIZER-Comirnaty) 07/20/2023 COVID-19, mRNA, LNP-s, PF, B ooster, 100mcg/0.5mg (Moderna) 03/12/2022 Covid-19, Mrna, Lnp-s, Pf, B ivalent, 30 Mcg, IM, 12 yrs and above (Pfizer) 06/24/2022 Pneumococcal Conjugate Vacci ne, 20-valent ([id number]) 12/15/2022 Pneumococcal Polysaccharide PPV23 (Pneumovax) 06/17/2021 RSV [...] No 12/27/2023 Does the household have a rustlar source of income? (Household - for ages [...] encounter Miscellaneous Notes * Telephone Encounter - Wayne Morton PA-C - 05/15/2024 8:26 AM EDT Signed Prescriptions: Disp Refills Finasteride 5 MG Oral Tablet (Proscar) 100 Ta*3 Sig: TAKE ONE TABLET BY MOUTH EVERY MORNINGAuthorizing Provider: WAYNE MORTON documented in this encounter Plan of Treatment Upcoming Encounters Date Type Department Care Team ([facility] st Contact Info) Description 06/22/2024 9:00 AM EDT Laboratory [facility], [address] [phone] [place], Lab [address] [address] 06/27/2024 4:20 PM EDT Office Visit Dermatology [address] [phone] Garo Arriaga PA-C [address] [place] [address] 07/04/2024 1:20 PM EDT Office Visit General [facility] [address] [place] [address] Terry Vasquez, DO [address] [place] [address] 08/09/2024 10:00 AM EST Appointment Vascular Lab [facility] [address] [place] [address] 08/09/2024 10:30 AM EST Appointment Vascular Lab [facility], [place] [address] [place] [address] 08/09/2024 11:00 AM EST Appointment Vascular Lab [facility], [place] [address] [place] [address] 08/09/2024 11:45 AM EST Office Visit Vascular Surg Hospital [facility], [place] [address] [place] [address] Dashawn Bergeron MD [address] [place] [address] 10/20/2024 1:00 PM EST Office Visit Cardiology, [facility] [address] [place] [address] Kayden Lara, DO [address] [facility] [address] 11/30/2024 3:00 PM EST Nurse Only Ancillary [facility] [address] [place] [address] [place], Nurse Annual Wellness Lock [address] [place] [address] Health Maintenance Due Date Last Done Comments COVID-19 Vaccine (2022- season) 2023 07/20/2023, 06/24/2022, 03/12/2022, Additional history [...] as of this encounter Visit Diagnoses Diagnosis BPH with obstruction/lower urinary tract symptoms Hypertrophy of prostate with urinary obstruction and other lower urinary tract symptoms (LUTS) documented in this encounter Advance Directives Documents on File Type Date 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
--- OUTSIDE RECORDS SUMMARY | 2024-08-12 04:30 | External Medical Summary | Summary of Care ---
Author Name Unknown Organization [facility] Address [address] [place] [address] Phone [phone] Care Team Providers Care Nursing Program Director Name Role Phone Terry Lorenzo DO Primary Care Provid er Reason for Visit * Reason Comments Medication Refill Encounter Details Date Type Department Care Team ([facility] Contact Info) Description 05/13/2024 Refill Family [address] [phone] Terry Lorenzo DO [address] [place] [address] HTN, goal below 130/80 Allergies No known active allergiesdocumented as of this encounter (statuses as of 05/15/2024) Medications Medication Sig Dispensed Refills Start Date End Date Status ASPIRIN EC 81 MG PO TBECIndications:Dickson nary atherosclerosis of [place] coronary artery Take by mouth every evening. [...] polyneuropathy, without long-term current use of insulin ([facility]) Use as directed 4 times a day [...] 200 Tablet 1 05/15/2024 05/15/20 25 Active Metoprolol Tartrate 50 MG Oral [...] pulmonary embolism 10/04/2012 Overview: Bilateral Atherosclerosis of [place] co ronary artery of [place] heart without angina pectoris 07/23/2010 Hyperlipidemia associated [...] (Pfizer) 06/24/2022 Pneumococcal Conjugate Vacci ne, 20-valent ([id number]) 12/15/2022 Pneumococcal Polysaccharide PPV23 (Pneumovax) 06/17/2021 RSV [...] encounter Miscellaneous Notes * Telephone Encounter - Kim [facility] - 05/15/2024 10:11 AM EDTSigned Prescriptions: Disp Refills Metoprolol Tartrate 50 MG Oral Tablet (Lop*200 Ta*1 Sig: TAKE ONE TABLET BY MOUTH TWICE A DAYAuthorizing Provider: TERRY LORENZO User: KIM YOUNG documented in this encounter Plan of Treatment Upcoming Encounters Date Type Department Care Team ([facility] st Contact Info) Description 06/22/2024 9:00 AM EDT Laboratory Laboratory [facility] [place], [address] [phone] [address] [address] 06/27/2024 4:20 PM EDT Office Visit Dermatology [address] [phone] Garo Arriaga PA-C [address] [place] [address] 07/04/2024 1:20 PM EDT Office Visit General Internal Medicine [facility] [address] [place] [address] Terry Lorenzo, DO [address] [place] [address] 08/09/2024 10:00 AM EST Appointment Vascular Lab [facility], [place] [address] [place] [address] 08/09/2024 10:30 AM EST Appointment Vascular Lab [facility] for [facility], [place] [address] [place] [address] 08/09/2024 11:00 AM EST Appointment Vascular Lab [facility], [place] [address] [place] [address] 08/09/2024 11:45 AM EST Office Visit Vascular Surg [facility], [place] [address] [place] [address] Dashawn Bergeron MD [address] [place] [address] 10/20/2024 1:00 PM EST Office Visit Cardiology, [facility] [address] [facility] [address] Kayden Lara, 132 [facility] [place] [address] 11/30/2024 3:00 PM EST Nurse Only Ancillary [address] [phone] [place], Nurse Annual Wellness [address] [address] Health Maintenance Due Date Last Done Comments [...] as of this encounter Visit Diagnoses Diagnosis HTN, goal below 130/80 Unspecified essential hypertension documented in this encounter Advance Directives Documents on File Type Date Recorded Patient Consulting Practice Director Expl anation Advance Directives and Living Will [...] Advance Directives occurred with: Patient Care Teams Nursing Program Director Relationship Specialty Start Date End Date Terry Lorenzo DO [address] [place] [address] PCP - General Internal Medicine 12/12/21 documented as of this encounter
--- OUTSIDE RECORDS SUMMARY | 2024-08-12 04:30 | External Medical Summary | Summary of Care ---
Author Name Unknown Organization [facility] Address [address] [place] [address] Phone [phone] Care Team Providers Care Ammonia Box Tender Name Role Phone Terry Vasquez DO Primary Care Provid er Reason for Visit * Reason Onset Date Comments Forms Request 06/06/2024 Encounter Details Date Type Department Care Team ([facility] Contact Info) Description 06/06/2024 Telephone Family [address] [phone] Terry Vasquez DO [address] [place] [address] Forms Request Allergies No known active allergiesdocumented as of this encounter (statuses as of 06/12/2024) Medications Medication Sig Dispensed Refills Start Date End Date Status ASPIRIN EC 81 MG PO TBECIndications:Coron keshav atherosclerosis of [place] coronary artery Take by mouth every evening. [...] polyneuropathy, without long-term current use of insulin ([facility]) Use as directed 4 times a day [...] polyneuropathy, without long-term current use of insulin ([facility]) TAKE ONE TABLET BY MOUTH TWICE A [...] pulmonary embolism 10/04/2012 Overview: Bilateral Atherosclerosis of [place] co ronary artery of [place] heart without angina pectoris 07/23/2010 Hyperlipidemia associated [...] (Pfizer) 06/24/2022 Pneumococcal Conjugate Vacci ne, 20-valent ([id number]) 12/15/2022 Pneumococcal Polysaccharide PPV23 (Pneumovax) 06/17/2021 RSV [...] encounter Miscellaneous Notes * Telephone Encounter - Nati Caballero LPN - 06/12/2024 4:07 PM EDT Paperwork completed. I called and made the daughter aware and that she can pick them up at entrance2. She v/u and will comply. * Telephone Encounter - Stacy Lara OSA - 06/06/2024 1:28 PM EDT Pt's daughter dropped off forms to be filled out by PCP. MA-51 medical evaluation. Pt's daughter isaware itll be 5-7 business days to be completed. 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 Form will be located in IM mailbox. Thank you documented in this encounter Plan of Treatment Upcoming Encounters Date Type Department Care Team (Late st Contact Info) Description 06/27/2024 4:20 PM EDT Office Visit Dermatology [facility] [address] [place] [address] Garo Arriaga PA-C [address] [place], [place] [address] [address] 07/04/2024 1:20 PM EDT Office Visit General Internal Medicine [facility] [place] 200 [place] [address] Terry Vasquez DO [address] [place] [address] 08/02/2024 11:00 AM EDT Office Visit Neurology [facility] [place] [address] [place] [address] Jeffrey Schwartz MD [address] [place] [address] 08/09/2024 10:00 AM EST Appointment Vascular Lab [facility] [address] [place] [address] 08/09/2024 10:30 AM EST Appointment Vascular Lab [facility] [address] [place] [address] 08/09/2024 11:00 AM EST Appointment Vascular Lab [facility] [address] [place] [address] 08/09/2024 11:45 AM EST Office Visit Vascular Surg [facility] [address] [place] [address] Dashawn Bergeron MD [address] [place] [address] 08/18/2024 9:00 AM EST Office Visit Dermatology [facility] [address] [place] [address] Stephenie Jacobs PA-C [address] [place] [address] 10/20/2024 1:00 PM EST Office Visit Cardiology, [facility] [address] [place] [address] Kayden Lara, [address] [place] [address] 11/30/2024 3:00 PM EST Nurse Only Ancillary [address] [phone] [place], Nurse [address] [place] [address] Health Maintenance Due Date Last Done Comments DTap/Tdap Vaccines (3 - Td or Tdap) 01/20/2024 01/19/2014, 08/08/2013, 11/08/2003 COVID-19 Vaccine (24 season) 2024 07/20/2023, 06/24/2022, 03/12/2022, Additional history [...] Documents on File Type Date 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
--- OUTSIDE RECORDS SUMMARY | 2024-08-12 04:30 | External Medical Summary | Summary of Care ---
Author Name Unknown Organization [facility] Address [address] [place] [address] Phone [phone] Care Team Providers Care Independent Contractor Name Role Phone Terry Vasquez DO Primary Care Provid er Reason for Visit * Reason Comments Medication Refill Encounter Details Date Type Department Care Team (Late st Contact Info) Description 05/14/2024 Refill Urology, [facility] [address] [place] [address] Rosalinda Camacho PA-C [address] [place] [address] BPH with obstruction/lower urinary tract symptoms Allergies No known active allergiesdocumented as of this encounter (statuses as of 05/15/2024) Medications Medication Sig Dispensed Refills Start Date End Date Status ASPIRIN EC 81 MG PO TBECIndications:Dickson nary atherosclerosis of [place] coronary artery Take by mouth every evening. [...] polyneuropathy, without long-term current use of insulin ([facility]) Use as directed 4 times [...] polyneuropathy, without long-term current use of insulin ([facility]) TAKE ONE TABLET BY MOUTH TWICE A DAY WITH MORNING AND EVENING MEALS 200 Tablet 2 04/27/2024 Active Terazosin HCl 10 MG Oral CapsuleIndications:B PH with obstruction/lower urinary tract symptoms TAKE ONE CAPSULE BY MOUTH AT BEDTIME 90 Capsule 1 05/05/2024 05/05/20 25 Active Finasteride 5 MG Oral Tablet (Proscar)Indications :BPH with obstruction/lower urinary tract symptoms TAKE ONE TABLET BY MOUTH EVERY MORNING 100 Tablet 3 05/15/2024 05/15/20 25 Active Finasteride 5 MG Oral Tablet (Proscar)Indications :BPH with obstruction/lower urinary tract symptoms TAKE ONE TABLET BY MOUTH EVERY MORNING 100 Tablet 3 03/03/2023 05/14/20 24 Discontinu ed(Refill) Metoprolol Tartrate 50 MG [...] pulmonary embolism 10/04/2012 Overview: Bilateral Atherosclerosis of [place] co ronary artery of [place] heart without angina pectoris 07/23/2010 Hyperlipidemia associated [...] (Pfizer) 06/24/2022 Pneumococcal Conjugate Vacci ne, 20-valent ([id number]) 12/15/2022 Pneumococcal Polysaccharide PPV23 (Pneumovax) 06/17/2021 RSV [...] encounter Miscellaneous Notes * Telephone Encounter - Muna Estes OSA - 05/15/2024 11:41 AM EDT I called and made the patient aware of script. VICKI Grover 05/15/2024 11:42 AM * Telephone Encounter - Wayne Morton PA-C - 05/15/2024 8:26 AM EDT Signed Prescriptions: Disp Refills Finasteride 5 MG Oral Tablet (Proscar) 100 Ta*3 Sig: TAKE ONE TABLET BY MOUTH EVERY MORNINGAuthorizing Provider: WAYNE MORTON documented in this encounter Plan of Treatment Upcoming Encounters Date Type Department Care Team (Late st Contact Info) Description 06/22/2024 9:00 AM EDT Laboratory Laboratory [address] [place] [phone] [place] [address] 06/27/2024 4:20 PM EDT Office Visit Dermatology [facility] [address] [place] [phone] Garo Arriaga PA-C [address] [place] [address] 07/04/2024 1:20 PM EDT Office Visit General Internal Medicine [facility] [address] [place] [address] Terry Vasquez DO [address] [place] [address] 08/09/2024 10:00 AM EST Appointment Vascular Lab [facility] for [place] [address] [place] [address] 08/09/2024 10:30 AM EST Appointment Vascular Lab [facility] [place] [address] [place] [address] 08/09/2024 11:00 AM EST Appointment Vascular Lab [facility] [address] [place] [address] 08/09/2024 11:45 AM EST Office Visit Vascular Surg [facility] [address] [place] [address] Dashawn Bergeron MD [address] [place] [address] 10/20/2024 1:00 PM EST Office Visit Cardiology, [facility] [address] [place] [address] Kayden Lara, [address] [place] [address] 11/30/2024 3:00 PM EST Nurse Only Ancillary [facility] [address] [facility] [phone] [place], Nurse Annual Wellness Lock [address] [place] [address] Health Maintenance Due Date Last Done Comments [...] 11/25/2023 Albumin/Creatinine Ratio 12/20/20242 024, 06/12/2022, 09/08/2019 Diabetic Eye Exam 12/28/2024 [...] Documents on File Type Date Recorded 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
--- OUTSIDE RECORDS SUMMARY | 2024-08-12 04:30 | External Medical Summary | Summary of Care ---
Author Name Unknown Organization [facility] Address [address] [place] [address] Phone [phone] Care Team Providers Care Regional Education Coordinator Name Role Phone Ellynelizabeth Terry Argueta Primary Care Provid er Reason for Visit * Reason Onset Date Comments Appointment 05/16/2024 Encounter Details Date Type Department Care Team (Late st Contact Info) Description 05/16/2024 Telephone Dermatology [facility] [address] [place] [address] Services, Scheduling [address] [place] [address] Appointment Allergies No known active allergiesdocumented as of this encounter (statuses as of 05/17/2024) Medications Medication Sig Dispensed Refills Start Date End Date Status ASPIRIN EC 81 MG PO TBECIndications:Coron keshav atherosclerosis of [place] coronary artery Take by mouth every evening. [...] as of this encounter (statuses as of 05/17/2024) Active Problems Problem Noted Date Diagnosed Date [...] pulmonary embolism 10/04/2012 Overview: Bilateral Atherosclerosis of [place] co ronary artery of [place] heart without angina pectoris 07/23/2010 Hyperlipidemia associated with type 2 diabetes m ellitus 01/10/2010 Hypertension associated with type 2 diabetes aixa litus 01/10/2010 documented as of this encounter (statuses as of 05/17/2024) Resolved Problems Problem Noted Date Diagnosed Date Resolved Date 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/25/2015 12/03/2021 Edema 06/05/2014 12/03/2021 Right atrial enlargement 03/16/201411/2021 Right ventricular enlargement 03/16/2014 12/03/2021 Pulmonary embolism, bilateral 07/12/2013 03/28/2024 Pre-operative cardiovascular examination 01/30/2013 03/25/2015 documented as of this encounter (statuses as of 05/17/2024) Immunizations Name Administration Dates Next Due COVID-19 mRNA, LNP-s, No Pre serve, 2-Dose Series (Moderna) 07/28/2021,12/08/2020,11/10/2020 COVID-19, MRNA-LNP, 23-24, P F, 30 MCG/0.3 mL, 12 YRS AND ABOVE, IM (PFIZER-Comirnaty) 07/20/2023 COVID-19, mRNA, LNP-s, PF, B ooster, 100mcg/0.5mg (Moderna) 03/12/2022 Covid-19, Mrna, Lnp-s, Pf, B ivalent, 30 Mcg, IM, 12 yrs and above (Pfizer) 06/24/2022 Pneumococcal Conjugate Vacci ne, 20-valent ([id number]) 12/15/2022 Pneumococcal Polysaccharide PPV23 (Pneumovax) 06/17/2021 RSV [...] encounter Miscellaneous Notes * Telephone Encounter - Jen Aguirre OSA - 05/17/2024 9:11 AM EDT Called patient's daughter, and scheduled appt with Stephenie on 08/18/24. She asked that I keep the Sept appt with Brad until she speaks to her father regarding appts. * Telephone Encounter - Archana Palacios OSA - 05/16/2024 11:35 AM EDT PT daughter Oliver calling in, Pt has moved to [place] and would like to be seen there. He has ahistory of skin cancer and needs to be seen every 6 months per daughter. He has an appt in Jun in [place] that she wants to keep until she knows whether he can get in at [facility]. Pt daughter was upset about the availability of scheduling within [facility] and wanted to make a complaint. She was cold transferred to PT liaison. Best number for callback [phone]. OK to leave detailed VM. Thank you! Archana documented in this encounter Plan of Treatment Upcoming Encounters Date Type Department Care Team (Late st Contact Info) Description 06/27/2024 4:20 PM EDT Office Visit Dermatology [address] [phone] Garo Arriaga PA-C [address] [place] [address] [place] [address] 07/04/2024 1:20 PM EDT Office Visit General Internal Medicine [facility] [address] [place] [address] Terry Vasquez DO [address] [place] [address] 08/09/2024 10:00 AM EST Appointment Vascular Lab [facility], [place] [address] [place] [address] 08/09/2024 10:30 AM EST Appointment Vascular Lab [facility], [place] [address] [place] [address] 08/09/2024 11:00 AM EST Appointment Vascular Lab [facility], [place] [address] [place] [address] 08/09/2024 11:45 AM EST Office Visit Vascular Surg [facility], [place] [address] [place] [address] Dashawn Bergeron MD [address] [place] [address] 08/18/2024 9:00 AM EST Office Visit Dermatology [facility] [address] [facility] [place] [address] Stephenie Jacobs PA-C [address] [facility] [place] [address] 10/20/2024 1:00 PM EST Office Visit Cardiology, [facility] [address] [facility] [place] [address] Kayden Lara, DO [address] [facility] [place] [address] 11/30/2024 3:00 PM EST Nurse Only Ancillary [facility] [address] [place] [phone] [place], Nurse Annual Wellness Lock [address] [place] [address] Health Maintenance Due Date Last Done Comments [...] Documents on File Type Date Recorded 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
--- OUTSIDE RECORDS SUMMARY | 2024-08-12 04:30 | External Medical Summary | Summary of Care ---
Author Name Unknown Organization [facility] Address [address] [place] [address] Phone [phone] Care Team Providers Care Allopathic Doctor Name Role Phone Terry Vasquez DO Primary Care Provid er Reason for Visit * Reason Comments Medication Refill Encounter Details Date Type Department Care Team (Late st Contact Info) Description 05/14/2024 Refill Urology, [facility] [address] [place] [address] Rosalinda Camacho PA-C [address] [place] [address] BPH with obstruction/lower urinary tract symptoms Allergies No known active allergiesdocumented as of this encounter (statuses as of 05/15/2024) Medications Medication Sig Dispensed Refills Start Date End Date Status ASPIRIN EC 81 MG PO TBECIndications:Dickson nary atherosclerosis of [place] coronary artery Take by mouth every evening. [...] polyneuropathy, without long-term current use of insulin ([facility]) Use as directed 4 times [...] polyneuropathy, without long-term current use of insulin ([facility]) TAKE ONE TABLET BY MOUTH [...] pulmonary embolism 10/04/2012 Overview: Bilateral Atherosclerosis of [place] co ronary artery of [place] heart without angina pectoris 07/23/2010 Hyperlipidemia associated [...] (Pfizer) 06/24/2022 Pneumococcal Conjugate Vacci ne, 20-valent ([id number]) 12/15/2022 Pneumococcal Polysaccharide PPV23 (Pneumovax) 06/17/2021 RSV [...] Upcoming Encounters Date Type Department Care Team ([facility] st Contact Info) Description 06/22/2024 9:00 AM EDT [facility], [address] [phone] [place], [address] [address] 06/27/2024 4:20 PM EDT Office Visit Dermatology [address] [phone] Garo Arriaga PA-C [address] [place], [place] [address] [address] 07/04/2024 1:20 PM EDT Office Visit General Internal Medicine [facility] [address] [place] [address] Terry Vasquez, DO [address] [place] [address] 08/09/2024 10:00 AM EST Appointment Vascular Lab [facility] [address] [place] [address] 08/09/2024 10:30 AM EST Appointment Vascular Lab [place] [address] [place] [address] 08/09/2024 11:00 AM EST Appointment Vascular Lab [facility] [address] [place] [address] 08/09/2024 11:45 AM EST Office Visit Vascular Surg [facility] [address] [place] [address] Dashawn Bergeron MD [address] [place] [address] 10/20/2024 1:00 PM EST Office Visit Cardiology, [facility] [address] [facility] [place] [address] Kayden Lara, DO [address] [facility] [place] [address] 11/30/2024 3:00 PM EST Nurse Only Ancillary [facility] [address] [place] [phone] [place], Nurse Annual Wellness [address] [address] Health Maintenance Due Date Last Done Comments COVID-19 Vaccine (2022-24 season) 2023 07/20/2023, 06/24/2022, 03/12/2022, Additional history [...] Documents on File Type Date 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
--- OUTSIDE RECORDS SUMMARY | 2024-08-12 04:31 | External Medical Summary | Summary of Care ---
Author Name Unknown Organization [facility] Address [address] [place] [address] Phone [phone] Care Team Providers Care Director Operations Broadcast Name Role Phone Terry Vasquez DO Primary Care Provid er Encounter Details Date Type Department Care Team ([facility] st Contact Info) Description 03/22/2024 Orders Only Family Practice [facility] [address] [place] [address] Terry Vasquez DO [address] [place] [address] Allergies No known active allergiesdocumented as of this encounter (statuses as of 03/22/2024) Medications Medication Sig Dispensed Refills Start Date End Date Status ASPIRIN EC 81 MG PO TBECIndications:Coron keshav atherosclerosis of [place] coronary artery Take by mouth every evening. [...] Tablet by mouth in the morning. Active Finasteride 5 MG Oral Tablet (Proscar)Indications: BPH with obstruction/lower urinary tract symptoms TAKE ONE TABLET BY MOUTH EVERY MORNING 100 Tablet 3 03/03/2023 4 Active Terazosin HCl 10 MG Oral CapsuleIndications:BP H with obstruction/lower urinary tract symptoms TAKE ONE CAPSULE BY MOUTH AT BEDTIME 90 Capsule 3 03/03/2023 4 Active Levothyroxine Sodium 150 MCG Oral Tablet [...] BEFORE BEDTIME 360 Tablet 3 09/22/2023 Active Atorvastatin Calcium 10 MG Oral Tablet (Lipitor) TAKE ONE TABLET BY MOUTH EVERY DAY 100 Tablet 1 10/30/2023 5 Active metFORMIN HCl ER 500 MG Oral Tablet Extended Release 24 Hour (Glucophage XR)Indications:Type 2 diabetes mellitus with diabetic polyneuropathy, without long-term current use of insulin ([facility]) TAKE ONE TABLET BY MOUTH TWICE A DAY WITH MORNING AND EVENING MEALS 200 Tablet 1 10/30/2023 5 Active Metoprolol Tartrate 50 MG Oral Tablet (Lopressor)Indication s:HTN, goal below 130/80 TAKE ONE TABLET BY MOUTH TWICE A DAY 200 Tablet 1 11/14/2023 5 Active Ezetimibe 10 MG Oral Tablet (Zetia) [...] MORNING 100 Tablet 1 01/08/2024 5 Active documented as of this encounter (statuses as of 03/22/2024) Active Problems Problem Noted Date Diagnosed Date Iliac aneurysm 07/14/2023 Acquired hypothyroidism 04/22/2020 Type 2 diabetes mellitus wit h diabetic polyneuropathy, without long-term current use of insulin 08/22/2019 History of Paget's disease of bone 06/20/2018 Spinal stenosis of lumbar region 06/20/2018 Myasthenia gravis 05/20/2017 Peripheral neuropathy due to metabolic disorder 05/20/2017 Ascending aorta dilation 04/18/2015 AAA (abdominal aortic aneurysm) 11/09/2014 PAD (peripheral artery disease) 03/07/2014 Pulmonary embolism, bilateral 07/12/2013 BPH without obstruction/lower urinary tract symp toms 02/24/2013 Atherosclerosis of [place] co ronary artery of [place] heart without angina pectoris 07/23/2010 Hyperlipidemia associated with type 2 diabetes m ellitus 01/10/2010 Hypertension associated with type 2 diabetes aixa litus 01/10/2010 documented as of this encounter (statuses as of 03/22/2024) Resolved Problems Problem Noted Date Diagnosed Date Resolved Date 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/25/2015 12/03/2021 Edema 06/05/2014 12/03/2021 Right atrial enlargement 03/16/201411/2021 Right ventricular enlargement 03/16/2014 12/03/2021 Pre-operative cardiovascular examination 01/30/2013 03/25/2015 documented as of this encounter (statuses as of 03/22/2024) Immunizations Name Administration Dates Next Due COVID-19 mRNA, LNP-s, No Pre serve, 2-Dose Series (Moderna) 07/28/2021,12/08/2020,11/10/2020 COVID-19, MRNA-LNP, 23-24, P F, 30 MCG/0.3 mL, 12 YRS AND ABOVE, IM ([facility]) 07/20/2023 COVID-19, mRNA, LNP-s, PF, B ooster, 100mcg/0.5mg (Moderna) 03/12/2022 Covid-19, Mrna, Lnp-s, Pf, B ivalent, 30 Mcg, IM, 12 yrs and above (Pfizer) 06/24/2022 Pneumococcal Conjugate Vacci ne, 20-valent ([id number]) 12/15/2022 Pneumococcal Polysaccharide PPV23 (Pneumovax) 06/17/2021 RSV [...] the money to buy more. Never true 12/11/19 23 Within the past 12 months, t he food you bought just didn't last and you didn't have money to get more. Never true 12/10/2022 Sex and Gender Information Value Date Recorded [...] Care Team (Late st Contact Info) Description 05/02/2024 10:15 AM EDT Office Visit Orthopaedics [address] [phone] Adrian Rodas PA-C [address] [place] [address] 06/07/2024 11:30 AM EDT Office Visit Cardiology [address] [place] [phone] Bereket Logan CRNP [address] [place] [address] 06/22/2024 9:00 AM EDT Laboratory [facility], [address] [phone] [place], Lab [address] [address] 06/27/2024 4:20 PM EDT Office Visit Dermatology [address] [phone] Garo Arriaga PA-C [address] [place] [address] 06/29/2024 11:40 AM EDT Office Visit Family Practice [address] [phone] Bryon Winter MD [address] [place] [phone] 08/09/2024 10:00 AM EST Appointment Vascular Lab [address] [address] 08/09/2024 10:30 AM EST Appointment Vascular Lab [address] [address] 08/09/2024 11:00 AM EST Appointment Vascular Lab [address] [address] 08/09/2024 11:45 AM EST Office Visit Vascular Surg [address] [address] Dashawn Bergeron MD [address] [place] [address] 11/30/2024 3:00 PM EST Nurse Only Ancillary [address] [phone] [facility] Annual Wellness [address] [address] Health Maintenance Due Date Last Done Comments COVID-19 Vaccine ( season) 2023 07/20/2023, 06/24/2022, 03/12/2022, Additional history exists Diabetic Foot Exam 12/16/2023 12/15/2022, 0 12/03/2021, 04/22/2020 DTaP,Tdap,and Td Vaccines (3 - Td or Tdap) 01/20/2024 01/19/2014, 08/08/2013, 11/08/2003 HbA1c 09/20/2024 03/21/2024, 12/02, 06/15/2023, Additional history exists Depression Screening 11/20/2024 11/20/2023 Albumin/Creatinine Ratio 12/20/2024 024, 06/12/2022, 09/08/2019 Diabetic Eye Exam 12/28/2024 12/29/2023, , 01/06/2023, Additional history exists TSH 03/21/2025 03/21/2024, 12/02, 06/15/2023, Additional history exists Zoster Vaccines Completed 12/13/2019, 09/08/2019 Pneumococcal Vaccine: 65+ Years Completed 12/15/2022, 06/17/2021 Influenza Vaccine (FLU shot) Completed , 06/09/2022, 06/17/2021, Additional history exists GARDASIL-HPV IMMUNIZATION SERIES Aged Out No longer eligible based on patient's age to complete this topic Hepatitis B Aged Out No longer eligi ble based on patient's age to complete this topic MENINGOCOCCAL (MENACTRA/MENVEO) Aged Out No longer eligible based on patient's age to complete this topic documented as of this encounter Medical Devices Not on filedocumented as of this encounter Procedures Procedure Name Priority Date/Time Associated Diagnosis Comments CHEMISTRY-OUTSIDE Routine 03/21/2024 TSH Routine 03/21/2024 documented in this encounter Results * (ABNORMAL) TSH (03/21/2024) TSH - OUTSIDE LAB 5.49(A) 0.450 - 5.330 UIU/ML OUTSIDE LAB (SEE SCANNED REPORT) Blood Venous blood specimen / Unknown 03/21/2024 History Per Patient LAB BLOOD ORDERABLES OUTSIDE LAB (SEE SCANNED REPORT) * (ABNORMAL) CHEMISTRY-OUTSIDE (03/21/2024) Not all results display below - see scan for full detail OUTSIDE LAB (SEE SCANNED REPORT) Comment:SCAN INCLUDES - JOSUÉ TE, VIT B12, A1C, CBCD, TSH, LP, CMP CREATININE-OUTSID E LAB 1.0 0.6 - 1.5 MG/DL OUTSIDE LAB (SEE SCANNED REPORT) EGFR-OUTSIDE LAB 70 ML/MIN OUT SIDE LAB (SEE SCANNED REPORT) POTASSIUM-OUTSIDE LAB 4.4 3.6 - 5.1 MMOL/L OUTSIDE LAB (SEE SCANNED REPORT) GLUCOSE-OUTSIDE LAB 120(A) 70 - 99 MG/DL OUTSIDE LAB (SEE SCANNED REPORT) HOURS FASTING OUTSID E LAB (SEE SCANNED REPORT) TRIGLYCERIDES-OUT SIDE LAB 82 <=150 MG/DL OUTSIDE LAB (SEE SCANNED REPORT) CHOLESTEROL-OUTSI DE LAB 90 <=200 MG/DL OUTSIDE LAB (SEE SCANNED REPORT) HDL-OUTSIDE LAB 30.5(A) 40.0 - 60.0 MG/DL OUTSIDE LAB (SEE SCANNED REPORT) CHOL/HDL RATIO-OUTSIDE LAB OUTSIDE LA B (SEE SCANNED REPORT) LDL (CALCULATED)-OUTS TEE LAB 43 <=100 MG/DL OUTSIDE LAB (SEE SCANNED REPORT) LDL (DIRECT MEASURE)-OUTSIDE LAB OUTSIDE LAB (SEE SCANNED REPORT) HEMOGLOBIN, S2M-KYWICIS LAB 6.8(A) 4.3 - 6.2 % OUTSIDE LAB (SEE SCANNED REPORT) PHOSPHORUS-OUTSID E LAB OUTSIDE LAB (SEE SCANNED REPORT) PTH-OUTSIDE LAB OUTS TEE LAB (SEE SCANNED REPORT) MICROALBUMIN RATIO-OUTSIDE LAB OUTSIDE LA B (SEE SCANNED REPORT) PROTEIN, UA-OUTSIDE LAB OUTSIDE LAB (SEE SCANNED REPORT) HGB 13.1 12.4 - 17.3 G/DL OUTSIDE LAB (SEE SCANNED REPORT) 03/21/2024 History Per Patient LABORATORY OUTSIDE LAB (SEE SCANNED REPORT) documented in this encounter Advance Directives * Full Code (Latest Code Status on [...] Directives occurred with: Patient Care Teams Director Operations Broadcast Relationship Specialty Start Date End Date Terry Vasquez DO [address] [place] [phone] PCP - General Internal Medicine 12/12/21 documented as of this encounter
--- OUTSIDE RECORDS SUMMARY | 2024-08-12 04:31 | External Medical Summary | Summary of Care ---
Author Name Unknown Organization [facility] Address [address] [facility] [place] [address] Phone [phone] Care Team Providers Care Channel Man Name Role Phone Terry Vasquezothy Primary Care Provid er Reason for Visit * Reason Comments Follow Up Encounter Details Date Type Department Care Team (Late st Contact Info) Description 04/28/2024 2:00 PM EDT Office Visit Cardiology, [facility] [address] [place] [address] Karin Araiza CRNP [address] [place] [address] Atherosclerosis of [place] coronary artery of [place] heart without angina pectoris*; Nonrheumatic aortic valve insufficiency; Ascending aorta dilation (HCC); HTN, goal below 130/80; Dyslipidemia, goal LDL below 70; 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 [...] EVENING MEALS 200 Tablet 2 04/27/2024 Active documented as of this encounter (statuses as of 04/28/2024) Active Problems Problem Noted Date Diagnosed Date [...] pulmonary embolism 10/04/2012 Overview: Bilateral Atherosclerosis [place] co ronary artery of [place] heart without angina pectoris 07/23/2010 Hyperlipidemia associated with type 2 diabetes m ellitus 01/10/2010 Hypertension associated with type 2 diabetes aixa litus 01/10/2010 documented as of this encounter (statuses as of 04/28/2024) Resolved Problems Problem Noted Date Diagnosed Date Resolved Date 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/25/2015 12/03/2021 Edema 06/05/2014 12/03/2021 Right atrial enlargement 03/16/201411/2021 Right ventricular enlargement 03/16/2014 12/03/2021 Pulmonary embolism, bilateral 07/12/2013 03/28/2024 Pre-operative cardiovascular examination 01/30/2013 03/25/2015 documented as of this encounter (statuses as of 04/28/2024) Immunizations Name Administration Dates Next Due COVID-19 mRNA, LNP-s, No Pre serve, 2-Dose Series (Moderna) 07/28/2021,12/08/2020,11/10/2020 COVID-19, MRNA-LNP, 23-24, P F, 30 MCG/0.3 mL, 12 YRS AND ABOVE, IM (PFIZER-Comirnaty) 07/20/2023 COVID-19, mRNA, LNP-s, PF, B ooster, 100mcg/0.5mg (Moderna) 03/12/2022 Covid-19, Mrna, Lnp-s, Pf, B ivalent, 30 Mcg, IM, 12 yrs and above (Pfizer) 06/24/2022 Pneumococcal Conjugate Vacci ne, 20-valent ([id number]) 12/15/2022 Pneumococcal Polysaccharide PPV23 (Pneumovax) 06/17/2021 RSV [...] Sign Reading Time Taken Comments Blood Pressure 114/72 04/28/2024 1:55 PM EDT Pulse 66 04/28/2024 1:55 PM EDT Temperature - - Respiratory Rate 16 04/28/2024 1:55 PM EDT Oxygen Saturation - - Inhaled Oxygen Concentration - - Weight 94.8 kg (209 lb) 04/28/2024 1:55 PM EDT Height - - Body Mass Index 28.35 03/28/2024 3:08 PM EDT documented in this [...] as of this encounter Progress Notes * Karin Araiza CRNP - 04/28/2024 2:00 PM EDT 04/28/2024 Cardiology Follow Up Primary Drawing Checker: Dr. Lara Cardiac Problems: Chronic coronary heart disease, previous circumflex territory myocardial infarction in 1987. Cardiac catheterization in 1999 with stable disease, chronic circumflex territory occlusion with right to left collaterals Aortic root and proximal ascending aorta dilatation Peripheral arterial disease including an abdominal aortic aneurysm, bilateral iliac aneurysms, pastpopliteal artery stenting. Followed by [facility] Past DVT and bilateral pulmonary embolism following right popliteal aneurysm repair at [facility] Myasthenia gravis, followed by [facility] Dyslipidemia. Tolerating the current regimen of Lescol and Zetia, intolerant to 3-4 other statins per patient report Hypertension, controlled. BPH Pagets disease Lumbar spine stenosis HPI: Hans Valera is a 88 year old male presents today for routine cardiology follow up. Patient was last seen in our office on 02/08/[address] Lara for routine cardiology follow up at that time he offered no significant change in his functional capacity other than a significant loss in weight due to dietary changes with his diabetes Patient presents today with his son Earl. He is notably upset. He expressed frustration with his appointments being cancelled and/or delayed. He is also upset that he is being made to see a AdvancedPractitioner today and "not the doctor". Attempted to reassure patient and acknowledge his frustrations with scheduling issues. Also attempted to explain to patient what exactly a Advanced practitioner is, our schooling, our qualifications and our abilities. He denies any cardiac concerns today. Denies any chest pain, pressure, palpitations, no change in breathing or shortness of breath, no lower extremity swelling, no presyncope or syncope. Patient denies any change in his functional capacity Most recent echocardiogram reviewed with patient dated November 23, 2023 which demonstrates a normal LVEF, mild aortic insufficiency in notation of mild enlargement of ascending aorta. This is unchanged from prior study Patient also expresses concern over vascular studies. Reviewed vascular duplex studies from 2022 in which vascular Medicine is following concerns of a AAA. Measurements at that time or at 4 cm which is stable. He is currently scheduled to see Vascular Surgery for routine follow up in July 23, 2024 Blood pressure well controlled today EKG obtained which demonstrates sinus rhythm with an occasional PVC rate 63 beats per minute no acute changes when compared with prior study Patient reports compliance on all medication therapies with no untoward effects REVIEW OF SYSTEMS: See HPI for pertinent positives. All others negative other than those noted in the HPI. CONSTITUTIONAL: No change in weight, No weakness, No fatigue and No fevers, No sweats or chills. PULMONARY: No cough, sputum, or hemoptysis, No wheezing, No shortness or breath and No recent change in breathing. CARDIOVASCULAR: No chest pain, No dyspnea on exertion, No edema, No palpitations and No syncope. GASTROINTESTINAL: No abdominal pain, No change in bowel habits, No significant heartburn, No nausea, No vomiting, No diarrhea, No constipation, No blood in stools or black tarry stools. No dysphagia. HEMATOLOGIC: No abnormal bleeding and No bruising. NEUROLOGICAL: Normal balance, No headaches and No weakness. Review of patient's allergies indicates: No Known Allergies Current Outpatient Medications Medication Sig Dispense Refill ASPIRIN EC 81 MG PO TBEC Take by mouth every evening. 30 Tab 11 Cholecalciferol (VITAMIN D3) 2000 units Capsule Take 1 Capsule by mouth in the morning. Cyanocobalamin 1000 MCG Oral Tablet (Cyanocobalamin) Take 1 Tablet by mouth in the morning. Finasteride 5 MG Oral Tablet (Proscar) TAKE ONE TABLET BY MOUTH EVERY MORNING 100 Tablet 3 Terazosin HCl 10 MG Oral Capsule TAKE ONE CAPSULE BY MOUTH AT BEDTIME 90 Capsule 3 Levothyroxine Sodium 150 MCG Oral Tablet (Levoxyl) TAKE 1 TABLET BY MOUTH EVERY MORNING AT LEAST 30MINUTES PRIOR TO BREAKFAST OR OTHER MEDICATIONS 90 Tablet 3 Famotidine 20 MG Oral Tablet (Pepcid) TAKE ONE TABLET BY MOUTH TWICE A DAY. 180 Tablet 2 Losartan Potassium 50 MG Oral Tablet (Cozaar) TAKE ONE TABLET BY MOUTH EVERY DAY 90 Tablet 2 Gabapentin 600 MG Oral Tablet (Neurontin) TAKE 1/2 TABLET EVERY MORNING AND 1 AND 1/2 TABLET EVERY EVENING AND 2 TABLETS BEFORE BEDTIME 360 Tablet 3 Metoprolol Tartrate 50 MG Oral Tablet (Lopressor) TAKE ONE TABLET BY MOUTH TWICE A DAY 200 Tablet 1 Ezetimibe 10 MG Oral Tablet (Zetia) TAKE [...] MORNING AND EVENING MEALS 200 Tablet 2 Misc. Devices (WALKER SWIVEL WHEELS) MISC Use as directed 1 Each 0 OneTouch Verio w/Device Kit Use up to 4 times a day E11.9 1 Kit 0 OneTouch UltraSoft Lancets Use as directed 4 times a day as needed (sugars). Use up to four times aday as directed 300 Each 3 No current facility-administered medications for this visit. 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 BPH (benign prostatic hyperplasia) Dyslipidemia Hypertension Hypothyroidism Lumbar stenosis DE, old 1987 Myasthenia gravis ([facility]) PAD (peripheral artery disease) ([facility]) Peripheral neuropathy Pulmonary embolism, bilateral ([facility]) 07/12/2013 Family History Problem Relation Name Age of Onset Diabetes Mother Social History Socioeconomic History Marital status: Tobacco Use Smoking status: Former Current packs/day: 0.00 Average packs/day: 1 pack/day for 10.0 years (10.0 ttl pk-yrs) Types: Cigarettes Start date: 01/27/1950 Quit date: 01/28/1960 Years since quittin.2 Smokeless tobacco: Never Vaping Use Vaping status: Never Used Substance and Sexual Activity Alcohol use: Yes Comment: beer occ. Drug use: No Social Determinants of Health Financial Resource Strain: Low Risk (12/27/2023) Financial Resource Strain Do you have any trouble paying for your medications, or do you think you might in the future? (Adult - for ages 18 years and over): No Food Insecurity: No Food Insecurity (12/27/2023) Food Insecurity Do you need food for this week? (Adult - for ages 18 years and over): No Transportation Needs: No Transportation Needs (12/27/2023) Transportation Needs Do you have trouble getting a ride to medical visits or work? (Adult - for ages 18 years and over):Never True Social Connections: Socially Integrated (12/27/2023) Social Connections How often do you feel lonely or isolated from those around you? (Adult - for ages 18 years and over): Never Housing Stability: Low Risk (12/27/2023) Housing Stability Do you currently live in a residential or have no steady place to sleep at night? (Adult - for ages 18 years and over): No Do you think you are at risk of becoming homeless? (Adult - for ages 18 years and over): No OBJECTIVE/PHYSICAL EXAMINATION: BP 114/72 | Pulse 66 | Resp 16 | Wt 94.8 kg (209 lb) | BMI 28.35 kg/m | BSA 2.19 m General: No acute distress. A+Ox3. HEENT: Normocephalic. Atraumatic. PERRL. EOMI. Conjunctiva and sclera clear. NECK: No carotid bruits. No JVD. Carotid upstrokes are brisk. Heart: RRR. S1 and S2 noted. No murmur. No rubs or gallops. PMI non displaced. Lungs: Clear to auscultation. No wheezes.No rhonchi. No rales. Abdomen: Normal bowel sounds. Soft. Nontender. No masses or organomegaly. No abdominal bruits. Extremities: No edema. No clubbing or cyanosis. Pulses: radial=2/4, posterior tibial=2/4, dorsalis pedis = 2/4. NEURO: No focal deficits. PSYCH: Appropriate affect and insight. DATA Labs & Imaging Reviewed Below: Echocardiogram 11/23/2023: Interpretation Summary The examination is adequate to evaluate the referral indication. The qualitative LV ejection fraction is 55-59% (normal). No LV segmental wall motion abnormalities. The aortic root and proximal ascending aorta are mildly enlarged. Mild aortic valve regurgitation is present. Compared to last available study, there has been no interval change. Summary of ttecho performed 12/29/21: The qualitative LV ejection fraction is 50-54% (normal). No LV segmental wall motion abnormalities. The aortic root and proximal ascending aorta are mildly enlarged measuring 4.4 and 4.4 cm respectively. No significant change is noted from prior study dated 05-16-20. Mild aortic valve regurgitation is present. ASSESSMENT/PLAN: 88 year old year old male 1. Atherosclerosis of [place] coronary artery of [place] heart without angina pectoris -no change or decline in functional capacity -EKG as described above shows no acute changes -blood pressure well controlled -continue guideline directed medical therapy with metoprolol tartrate, atorvastatin, Zetia, losartan, and aspirin 81 mg - EKG COMPLETE (TRACING AND INTERP) 2. Nonrheumatic aortic valve insufficiency 3. Ascending aorta dilation (HCC) -reviewed most recent echocardiogram as well as vascular duplex with patient and son which remainedstable -no change in functional capacity -blood pressure well controlled -euvolemic on exam -patient will be due for repeat echocardiogram next November timeframe for surveillance -scheduled to see vascular for yearly follow up of AAA. Scans continue to demonstrates stable measurements 4. HTN, goal below 130/80 -blood pressure at target -continue metoprolol tartrate, losartan, nifedipine, and terazosin as per current regimen 5. Dyslipidemia, goal LDL below 70 -recommend yearly lipid panel -continue atorvastatin, Zetia and aspirin as per current regimen 6. 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 All questions were answered to the patients satisfaction. Patient advised to report to ED with any and all emergencies. The patient agrees to the above plan and will call with additional questions or concerns. [facility], [address] [address] I spent a total of 35 minutes on the date of service in preparation, delivery, and documentation ofthe care provided to Hans Valera excluding any time spent in the performance of separately billed services. This chart was completed in part utilizing [facility] Speech Voice Recognition Software. Grammatical errors, random word insertions, pronoun errors, and incomplete sentences are an occasional consequence of this system due to software limitations, ambient noise, and hardware issues. Any formal questions or concerns about the content, text, or information contained within the body of this dictation should be directly addressed to the provider for clarification. documented in this encounter Nursing Notes * Jeffrey Del Rosario RN - 04/28/2024 1:54 PM EDT Examination Room: ROOM 1 Name: Hans Valera Date of : (1935). Reason for Visit: FOR FOLLOW UP Interim Hospitalization(s): DENIES Problems/Concerns: DENIES Chest Pain/SOB: DENIES [facility] Discussed: Yes [facility] is a way you can talk to your provider online through e-mail. Would you like to sign up? I can activate it for you? ALREADY ACTIVE Patient was instructed to not get up on the exam table until directed and assisted by their provider; patient is to remain seated in the chair/ wheelchair/ exam table for fall prevention and safety reasons. Patient is aware to have assistance to step down off exam table with personnel. Patient voiced full comprehension of instructions. documented in this encounter Plan of Treatment Upcoming Encounters Date Type Department Care Team ([facility] Contact Info) Description 06/22/2024 9:00 AM EDT Laboratory Laboratory Patient Service [address] [phone] [address] 06/27/2024 4:20 PM EDT Office Visit Dermatology [address] [phone] Garo Arriaga PA-C [address] [place] [address] 06/29/2024 11:40 AM EDT Office Visit Family Practice [facility] [address] [place] [phone] Bryon Winter MD [address] [place] [phone] 07/04/2024 1:20 PM EDT Office Visit General Internal Medicine [facility] [place] [address] [facility] [place] [address] Terry Vasquez DO [address] [place] [address] 08/09/2024 10:00 AM EST Appointment Vascular Lab [facility] [place] [address] [place] [address] 08/09/2024 10:30 AM EST Appointment Vascular Lab [facility] [place] [address] [place] [address] 08/09/2024 11:00 AM EST Appointment Vascular Lab [facility] [place] [address] [place] [address] 08/09/2024 11:45 AM EST Office Visit Vascular Surg [facility] [place] [address] [place] [address] Dashawn Bergeron MD [address] [place] [address] 10/20/2024 1:00 PM EST Office Visit Cardiology, [facility] [address] [place] [address] Kayden Lara, [address] [place] [address] 11/30/2024 3:00 PM EST Nurse Only Ancillary [address] [phone] [place], Nurse [address] [address] Scheduled Orders Name Type Priority Associated Diagnoses Orde r Schedule EKG COMPLETE (TRACING AND INTERP) EKG Routine Atherosclerosis of [place] coronary artery of [place] heart without angina pectoris Ordered: 04/28/2024 Health Maintenance Due Date Last Done Comments [...] as of this encounter Visit Diagnoses Diagnosis Atherosclerosis of [place] coronary artery of [place] heart without angina pectoris- Primary Nonrheumatic aortic valve insufficiency Aortic valve disorders Ascending aorta dilation (HCC) Thoracic aortic ectasia HTN, goal below 130/80 Unspecified essential hypertension Dyslipidemia, goal LDL below 70 Other and unspecified hyperlipidemia 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
--- OUTSIDE RECORDS SUMMARY | 2024-08-12 04:31 | External Medical Summary | Summary of Care ---
Author Name Unknown Organization [facility] Address [address] [place] [address] Phone [phone] Care Team Providers Care Applications Tester Name Role Phone Terry Vasquez DO Primary Care Provid er Reason for Visit * Reason Comments Medication Refill Encounter Details Date Type Department Care Team (Late st Contact Info) Description 05/05/2024 Refill Urology, [facility] [address] [place] [phone] Rosalinda Camacho PA-C [address] [place] [address] BPH with obstruction/lower urinary tract symptoms Allergies No known active allergiesdocumented as of this encounter (statuses as of 05/05/2024) Medications Medication Sig Dispensed Refills Start Date End Date Status ASPIRIN EC 81 MG PO TBECIndications:Dickson nary atherosclerosis of [place] coronary artery Take by mouth every evening. [...] morning. Active Finasteride 5 MG Oral Tablet (Proscar)Indications :BPH with obstruction/lower urinary tract symptoms TAKE ONE TABLET BY MOUTH EVERY MORNING 100 Tablet 3 03/03/2023 05/26/20 24 Active Levothyroxine Sodium 150 MCG Oral Tablet [...] BEDTIME 90 Capsule 1 05/05/2024 05/05/20 Active Terazosin HCl 10 MG Oral CapsuleIndications:B PH with obstruction/lower urinary tract symptoms TAKE ONE CAPSULE BY MOUTH AT BEDTIME 90 Capsule 3 03/03/2023 05/05/20 Discontinu ed(Refill) documented as of this encounter (statuses as of 05/05/2024) Active Problems Problem Noted Date Diagnosed Date [...] pulmonary embolism 10/04/2012 Overview: Bilateral Atherosclerosis of [place] co ronary artery of [place] heart without angina pectoris 07/23/2010 Hyperlipidemia associated with type 2 diabetes m ellitus 01/10/2010 Hypertension associated with type 2 diabetes aixa litus 01/10/2010 documented as of this encounter (statuses as of 05/05/2024) Resolved Problems Problem Noted Date Diagnosed Date Resolved Date 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/25/2015 12/03/2021 Edema 06/05/2014 12/03/2021 Right atrial enlargement 03/16/201411/2021 Right ventricular enlargement 03/16/2014 12/03/2021 Pulmonary embolism, bilateral 07/12/2013 03/28/2024 Pre-operative cardiovascular examination 01/30/2013 03/25/2015 documented as of this encounter (statuses as of 05/05/2024) Immunizations Name Administration Dates Next Due COVID-19 mRNA, LNP-s, No Pre serve, 2-Dose Series (Moderna) 07/28/2021,12/08/2020,11/10/2020 COVID-19, MRNA-LNP, 23-24, P F, 30 MCG/0.3 mL, 12 YRS AND ABOVE, IM (PFIZER-Comirnaty) 07/20/2023 COVID-19, mRNA, LNP-s, PF, B ooster, 100mcg/0.5mg (Moderna) 03/12/2022 Covid-19, Mrna, Lnp-s, Pf, B ivalent, 30 Mcg, IM, 12 yrs and above (Pfizer) 06/24/2022 Pneumococcal Conjugate Vacci ne, 20-valent ([id number]) 12/15/2022 Pneumococcal Polysaccharide PPV23 (Pneumovax) 06/17/2021 RSV [...] No 12/27/2023 Does the household have a [facility] of [...] encounter Miscellaneous Notes * Telephone Encounter - Elda Aguiar OSA - 05/05/2024 8:41 AM EDT LMOVM for patient to return call. VICKI Davila 05/05/2024 8:41 AM * Telephone Encounter - Rosalinda Camacho PA-C - 05/05/2024 8:06 AM EDTSigned Prescriptions: Disp Refills Terazosin HCl 10 MG Oral Capsule 90 Cap*1 Sig: TAKE ONE CAPSULE BY MOUTH AT BEDTIMEAuthorizing Provider: ROSALINDA CAMACHO * Telephone Encounter - Rosalinda Camacho PA-C - 05/05/2024 8:04 AM EDT Script refilled for 6 months. He was last seen 02/23 and does not have a follow up appt.. He either needs to schedule or have PCP refill. Rosalinda Camacho PA-C 8:07 AM 05/05/2024 documented in this encounter Plan of Treatment Upcoming Encounters Date Type Department Care Team (Late st Contact Info) Description 06/22/2024 9:00 AM EDT Laboratory Laboratory Patient Service [address] [phone] [address] 06/27/2024 4:20 PM EDT Office Visit Dermatology [address] [phone] Garo Arriaga PA-C [address] [place] [phone] 07/04/2024 1:20 PM EDT Office Visit General Internal Medicine [facility] [address] [place] [address] Terry Vasquez DO [address] [place] [address] 08/09/2024 10:00 AM EST Appointment Vascular Lab [address] [address] 08/09/2024 10:30 AM EST Appointment Vascular Lab [facility], [address] [address] 08/09/2024 11:00 AM EST Appointment Vascular Lab [facility], [address] [address] 08/09/2024 11:45 AM EST Office Visit Vascular Surg [facility], [address] [address] Dashawn Bergeron MD [address] [place] [address] 10/20/2024 1:00 PM EST Office Visit Cardiology, [facility] [address] [place] [address] Kayden Lara, [address] [place] [address] 11/30/2024 3:00 PM EST Nurse Only Ancillary [address] [phone] [place], Nurse [facility] [address] [place] [address] Health Maintenance Due Date Last Done Comments COVID-19 Vaccine ( season) 2023 07/20/2023, 06/24/2022, 03/12/2022, Additional history exists DTaP,Tdap,and Td Vaccines (3 - Td or Tdap) 01/20/2024 01/19/2014, 08/08/2013, 11/08/2003 Influenza Vaccine (FLU shot) (#1) 2024 06/22/2023, 06/09/2022, 06/17/2021, Additional history exists HbA1c 09/20/2024 03/21/2024, 12/02, 06/15/2023, Additional history exists Depression Screening 11/20/2024 11/20/2023 Albumin/Creatinine Ratio 12/20/202412/20/2 024, 06/12/2022, 09/08/2019 Diabetic [...] Documents on File Type Date Recorded 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
--- OUTSIDE RECORDS SUMMARY | 2024-08-12 04:31 | External Medical Summary | Summary of Care ---
Author Name Unknown Organization [facility] Address [address] [place] [address] Phone [phone] Care Team Providers Care Inside Sales Territory Manager Name Role Phone Terry Lorenzo DO Primary Care Provid er Reason for Visit * Reason Comments Medication Refill Encounter Details Date Type Department Care Team ([facility] st Contact Info) Description 04/27/2024 Refill Family Practice [facility] [address] [place] [address] Terry Lorenzo DO [address] [place] [id number] Type 2 diabetes mellitus with diabetic polyneuropathy, without long-term current use of insulin (HCC) Allergies No known active allergiesdocumented as of this encounter (statuses as of 04/27/2024) Medications Medication Sig Dispensed Refills Start Date End Date Status ASPIRIN EC 81 MG PO TBECIndications:Dickson nary atherosclerosis of [place] coronary artery Take by mouth every evening. [...] 100 Tablet 3 03/03/2023 05/26/20 24 Active Terazosin HCl 10 MG Oral CapsuleIndications:B PH with obstruction/lower urinary tract symptoms TAKE ONE CAPSULE BY MOUTH AT BEDTIME 90 Capsule 3 03/03/2023 05/16/20 24 Active Levothyroxine Sodium 150 MCG Oral [...] EVERY MORNING 100 Tablet 1 01/08/2024 01/08/20 Active Atorvastatin Calcium 10 MG Oral Tablet [...] EVENING MEALS 200 Tablet 2 04/27/2024 Active Atorvastatin Calcium 10 MG Oral Tablet (Lipitor) TAKE ONE TABLET BY MOUTH EVERY DAY 100 Tablet 1 10/30/2023 04/27/20 Discontinu ed(Refill) metFORMIN HCl ER 500 MG Oral Tablet Extended Release 24 Hour (Glucophage XR)Indications:Type 2 diabetes mellitus with diabetic polyneuropathy, without long-term current use of insulin (HCC) TAKE ONE TABLET BY MOUTH TWICE A DAY WITH MORNING AND EVENING MEALS 200 Tablet 1 10/30/2023 04/27/20 Discontinu ed(Refill) documented as of this encounter (statuses as of 04/27/2024) Active Problems Problem Noted Date Diagnosed Date [...] pulmonary embolism 10/04/2012 Overview: Bilateral Atherosclerosis of [place] co ronary artery of [place] heart without angina pectoris 07/23/2010 Hyperlipidemia associated with type 2 diabetes m ellitus 01/10/2010 Hypertension associated with type 2 diabetes aixa litus 01/10/2010 documented as of this encounter (statuses as of 04/27/2024) Resolved Problems Problem Noted Date Diagnosed Date Resolved Date 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/25/2015 12/03/2021 Edema 06/05/2014 12/03/2021 Right atrial enlargement 03/16/201411/2021 Right ventricular enlargement 03/16/2014 12/03/2021 Pulmonary embolism, bilateral 07/12/2013 03/28/2024 Pre-operative cardiovascular examination 01/30/2013 03/25/2015 documented as of this encounter (statuses as of 04/27/2024) Immunizations Name Administration Dates Next Due COVID-19 mRNA, LNP-s, No Pre serve, 2-Dose Series (Moderna) 07/28/2021,12/08/2020,11/10/2020 COVID-19, MRNA-LNP, 23-24, P F, 30 MCG/0.3 mL, 12 YRS AND ABOVE, IM ([email or web address]) 07/20/2023 COVID-19, mRNA, LNP-s, PF, B ooster, 100mcg/0.5mg (Moderna) 03/12/2022 Covid-19, Mrna, Lnp-s, Pf, B ivalent, 30 Mcg, IM, 12 yrs and above ([employer]) 06/24/2022 Pneumococcal Conjugate Vacci ne, 20-valent ([email or web address]) 12/15/2022 Pneumococcal Polysaccharide PPV23 (Pneumovax) 06/17/2021 RSV [...] encounter Miscellaneous Notes * Telephone Encounter - Gregory Chavez [facility] - 04/27/2024 8:58 AM EDT Signed Prescriptions: Disp Refills Atorvastatin Calcium 10 MG Oral Tablet (Li*100 Ta*2 Sig: TAKE ONE TABLET BY MOUTH EVERY DAY Authorizing Provider: TERRY LORENZO Ordering User: GREGORY CHAVEZ metFORMIN HCl ER 500 MG Oral Tablet Extend*200 Ta*2 Sig: TAKE ONE TABLET BY MOUTH TWICE A DAY WITH MORNING AND EVENING MEALS Authorizing Provider: TERRY CHILD User: GREGORY CHAVEZ * Telephone Encounter - Transfer User, Rx Adt - 04/27/2024 12:09 AM EDTPending Prescriptions: Disp Refills Atorvastatin Calcium 10 MG Oral Tablet (Li*100 Ta*1 Sig: TAKE ONE TABLET BY MOUTH EVERY DAY metFORMIN HCl ER 500 MG Oral Tablet Extend*200 Ta*1 Sig: TAKE ONE TABLET BY MOUTH TWICE A DAY WITH MORNING AND EVENING MEALS documented in this encounter Plan of Treatment Upcoming Encounters Date Type Department Care Team ([facility] st Contact Info) Description 04/28/2024 2:00 PM EDT Office Visit Cardiology, [facility] [address] [facility] [place] [address] Karin Araiza CRNP [address] [facility] [place] [address] 06/22/2024 9:00 AM EDT Laboratory Laboratory Patient Service [address] [phone] [address] [address] 06/27/2024 4:20 PM EDT Office Visit Dermatology [address] [place] [phone] Garo Arriaga PA-C [address] [place] [address] 06/29/2024 11:40 AM EDT Office Visit Family Practice [facility] [address] [place] [phone] Bryon Winter MD [address] [place] [address] 07/04/2024 1:20 PM EDT Office Visit General Internal Medicine [facility] [address] [place] [address] Terry Lorenzo DO [address] [place] [address] 08/09/2024 10:00 AM EST Appointment Vascular Lab [facility] [place] [address] [place] [address] 08/09/2024 10:30 AM EST Appointment Vascular Lab [place] [address] [place] [address] 08/09/2024 11:00 AM EST Appointment Vascular Lab [place] [address] [place] [address] 08/09/2024 11:45 AM EST Office Visit Vascular Surg [facility] [address] [place] [address] Dashawn Bergeron MD [address] [place] [address] 11/30/2024 3:00 PM EST Nurse Only Ancillary [address] [phone] Doretha, Nurse Annual Wellness [address] [address] Health Maintenance Due Date Last [...] Pneumococcal Vaccine: 65+ Years Completed 12/15/2022, 06/17/2021 HPV (Gardasil) Vaccine Aged Out No lo [...] without long-term current use of insulin (HCC) documented in this encounter Advance Directives Documents on File Type Date Recorded 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
--- OUTSIDE RECORDS SUMMARY | 2024-08-12 04:31 | External Medical Summary | Summary of Care ---
Author Name Unknown Organization [facility] Address [address] [place] [address] Phone [phone] Care Team Providers Care Raise Driller Name Role Phone Terry Vasquez DO Primary Care Provid er Reason for Visit * Reason Comments Acute Pt need to fill out the forms from the dr. There are two forms need to filled out. One for him and one for his . Encounter Details Date Type Department Care Team (Late st Contact Info) Description 03/28/2024 3:20 PM EDT Office Visit General Internal Medicine [facility] [address] [place] [address] Terry Vasquez DO [address] [place] [address] Type 2 diabetes mellitus with diabetic polyneuropathy, without long-term current use of insulin (HCC)*; PAD (peripheral artery disease) (HCC); Hyperlipidemia associated with type 2 diabetes mellitus (HCC); Hypertension associated with type 2 diabetes mellitus (HCC); Atherosclerosis of [place] coronary artery of [place] heart without angina pectoris; Abdominal aortic aneurysm (AAA) without rupture, unspecified part ([facility]); Iliac aneurysm ([facility]); BPH without obstruction/lower urinary tract symptoms Allergies No known active allergiesdocumented as of this encounter (statuses as of 03/28/2024) Medications Medication Sig Dispensed Refills Start Date End Date Status ASPIRIN EC 81 MG PO TBECIndications:Coron keshav atherosclerosis of [place] coronary artery Take by mouth every [...] as of this encounter (statuses as of 03/28/2024) Active Problems Problem Noted Date Diagnosed Date [...] pulmonary embolism 10/04/2012 Overview: Bilateral Atherosclerosis of [place] co ronary artery of [place] heart without angina pectoris 07/23/2010 Hyperlipidemia associated with type 2 diabetes m ellitus 01/10/2010 Hypertension associated with type 2 diabetes aixa litus 01/10/2010 documented as of this encounter (statuses as of 03/28/2024) Resolved Problems Problem Noted Date Diagnosed Date Resolved Date 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/25/2015 12/03/2021 Edema 06/05/2014 12/03/2021 Right atrial enlargement 03/16/201411/2021 Right ventricular enlargement 03/16/2014 12/03/2021 Pulmonary embolism, bilateral 07/12/2013 03/28/2024 Pre-operative cardiovascular examination 01/30/2013 03/25/2015 documented as of this encounter (statuses as of 03/28/2024) Immunizations Name Administration Dates Next Due COVID-19 mRNA, LNP-s, No Pre serve, 2-Dose Series (Moderna) 07/28/2021,12/08/2020,11/10/2020 COVID-19, MRNA-LNP, 23-24, P F, 30 MCG/0.3 mL, 12 YRS AND ABOVE, IM ([employer]) 07/20/2023 COVID-19, mRNA, LNP-s, PF, B ooster, 100mcg/0.5mg (Moderna) 03/12/2022 Covid-19, Mrna, Lnp-s, Pf, B ivalent, 30 Mcg, IM, 12 yrs and above ([employer]izer) 06/24/2022 Pneumococcal Conjugate Vacci ne, 20-valent ([email or web address]) 12/15/2022 Pneumococcal Polysaccharide PPV23 (Pneumovax) 06/17/2021 RSV [...] Sign Reading Time Taken Comments Blood Pressure 100/66 03/28/2024 3:08 PM EDT Pulse 55 03/28/2024 3:08 PM EDT Temperature 35.7 C (96.3 F) 03/28/2024 3:08 PM ED T Respiratory Rate - - Oxygen Saturation 97% 03/28/2024 3:08 PM EDT Inhaled Oxygen Concentration - - Weight 90.7 kg (200 lb) 03/28/2024 3:08 PM EDT Height 182.9 cm (6') 03/28/2024 3:08 PM EDT Body Mass Index 27.12 03/28/2024 3:08 PM EDT documented in this [...] Progress Notes * Terry Vasquez, DO - 03/28/2024 3:26 PM EDT Subjective Hans Valera is a 88 year old male. Chief Complaint Patient presents with Acute Pt need to fill out the forms from the dr. There are two forms need to filled out. One for him and one for his . HPI: Patient presents to office to discuss paperwork that need to be completed. Patient in his wifewill be moving to [facility]. Feel it will be better suited for them as they do need some help from time to time. Will also be closer to their daughter who is the POA. Needs [place] 51 form filled out for himself as well as his . Has history of myasthenia gravis maintained on mycophenolate. [facility] No acute neurologic deficits noted. 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 Follows with Vascular Surgery. No surgical indications at last follow-up. Continued surveillance Diabetes maintained on metformin 500 mg twice daily. A1c historically well controlled on last labs.Up-to-date on eye exam. Foot exam to be done today. [facility] Hypertension, hyperlipidemia tolerating current treatment regimen. No adverse effects to medications. No symptoms noted be consistent with elevation of baseline blood pressure. Last labs showed stable renal function/electrolytes. Total and LDL cholesterol at goal Hypothyroidism maintained on daily levothyroxine. Thyroid labs looked fine most recent set. No acute issues overall. No adverse medication effects BPH maintained on finasteride as well as terazosin. Follows with [facility] Urology. No acute urinary issues noted. No medication side effects PMH: Patient Active Problem List Diagnosis Hyperlipidemia associated with type 2 diabetes mellitus (HCC) Hypertension associated with type 2 diabetes mellitus (HCC) Atherosclerosis of [place] coronary artery of [place] heart without angina pectoris BPH without obstruction/lower [...] 1 Capsule by mouth in the morning. [employer] Verio w/Device Kit Use up to 4 [...] 2 TABLETS BEFORE BEDTIME 360 Tablet 3 Atorvastatin Calcium 10 MG Oral Tablet (Lipitor) TAKE ONE TABLET BY MOUTH EVERY DAY 100 Tablet 1 metFORMIN HCl ER 500 MG Oral Tablet Extended Release 24 Hour (Glucophage XR) TAKE ONE TABLET BY MOUTH TWICE A DAY WITH MORNING AND EVENING MEALS 200 Tablet 1 Metoprolol Tartrate 50 MG Oral Tablet [...] BY MOUTH EVERY MORNING 100 Tablet 1 No current facility-administered medications for this visit. 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 BPH (benign prostatic hyperplasia) Dyslipidemia Hypertension Hypothyroidism Lumbar stenosis [place], old 1987 Myasthenia gravis (HCC) PAD (peripheral artery disease) (HCC) Peripheral neuropathy Pulmonary embolism, bilateral (HCC) 07/12/2013 Past Surgical History: Procedure Laterality Date CARPAL TUNNEL SURGERY Right INJECT DX/THER SUBSTANCE INTERLAMINAR LUMBAR/SACRAL W IMAGE GUIDE 09/16/2017 INJECTION SPINE LUMBAR OR SACRAL performed by Attila Gonzalez Cousins, DO at OR [facility] INJECT DX/THER SUBSTANCE INTERLAMINAR LUMBAR/SACRAL W IMAGE GUIDE 10/25/2017 INJECTION SPINE LUMBAR OR SACRAL performed by Attila Griffinsins, DO at OR [facility] INJECT DX/THER SUBSTANCE INTERLAMINAR LUMBAR/SACRAL W IMAGE GUIDE 02/14/2018 INJECTION SPINE LUMBAR OR SACRAL performed by Attila Carlos Griffinsins, DO at OR [facility] INJECT DX/THER SUBSTANCE INTERLAMINAR LUMBAR/SACRAL W IMAGE GUIDE 05/05/2018 INJECTION SPINE LUMBAR OR SACRAL performed by Attila [facility], DO at OR [facility] L-/S-SPINE PARAVERTEBRAL FACET INJ,1 LEVEL 08/07/2019 L-/S-SPINE PARAVERTEBRAL FACET INJ, 1 LEVEL performed by Attila Ray, DO at OR [facility] PROSTATE BIOPSY REPAIR [...] performed by Benitez Mckeon DO at OR [facility] Review of patient's allergies indicates: No Known Allergies Family History Problem Relation Name Age of Onset Diabetes Mother Family Status Relation Status Mo (Not Specified) [...] occ. Drug use: No Sexual activity: Not on file Other Topics Concern Not on file Social [...] Stability Do you currently live in a assisted or have no steady place to sleep [...] Genitourinary: Negative for dysuria and frequency. Musculoskeletal: Negative for back pain and neck stiffness. Skin: Negative for pallor. Neurological: Negative for dizziness, light-headedness and headaches. Psychiatric/Behavioral: Negative for sleep disturbance. The patient is not nervous/anxious. Objective BP 100/66 | Pulse 55 | Temp 35.7 C (96.3 F) (Tympanic) | Ht 1.829 m (6') | Wt 90.7 kg (200 lb) | SpO2 97% | BMI 27.12 kg/m | BSA 2.15 m Physical Exam Constitutional: General: He is [...] and Affect: Mood normal. Behavior: Behavior normal. Right foot:Edema: none Skin: normal Temp: normal Pulses: DP-2+ PT-2+ Callus: Heel : Present Toes: no specific problems Nails: #1, 2, 3, 4, and 5:discolored Monofilament test: sensation intact in all areas. Left foot: Edema: none Skin: normal Temp: normal Pulses: DP-2+ PT-2+ Callus: Heel : Present Toes: no specific problems Nails: #1, 2, 3, 4, and 5:discolored Monofilament test: sensation intact in all areas. ASSESSMENT/PLAN: Type 2 diabetes mellitus with diabetic polyneuropathy, without long-term current use of insulin (HCC) (Primary) PAD (peripheral artery disease) (HCC) Hyperlipidemia associated with type 2 diabetes mellitus (HCC) Hypertension associated with type 2 diabetes mellitus (HCC) Atherosclerosis of [place] coronary artery of [place] heart without angina pectoris Abdominal aortic aneurysm (AAA) without rupture, unspecified part (HCC) Iliac aneurysm (HCC) BPH without obstruction/lower urinary tract symptoms Plan: Patient presents to office to have paperwork completed, [place] 51 as he and are planning to move to [facility] [place] 51 form filled out for patient as well as who is also a patient of the office. Med list printed for each of them do attached to form Continue current medications. Diabetes remains well controlled on metformin 500 mg twice daily Foot exam done today. No acute injuries or concerns. Diabetic eye exam up[facility] Follow-up as scheduled with lab work 1 week prior to next appointment Follow Up: Return in about 3 months (around 06/28/2024), or if symptoms worsen or fail to improve, for Return with Physician. | For: Return with Physician | Check-out note: Follow up 3 months Fasting labs 1 week prior Terry Vasquez DO documented in this encounter Nursing Notes * Indu Zaragoza MED ASSIST - 03/28/2024 3:05 PM EDT Chief Complaint Patient presents with Acute Pt need to fill out the forms from the . There are two forms need to filled out. One for him and one for his . documented in this encounter Plan of Treatment Upcoming Encounters Date Type Department Care Team ([facility] Contact Info) Description 05/02/2024 10:15 AM EDT Office Visit Orthopaedics [address] [place] [address] Adrian Rodas PA-C [address] [place] [address] 06/07/2024 11:30 AM EDT Office Visit Cardiology [address] [place] [address] Bereket Logan CRNP [address] [place] [address] 06/22/2024 9:00 AM EDT Laboratory Laboratory [facility], [address] [phone] Doretha, Lab [address] [place] [address] 06/27/2024 4:20 PM EDT Office Visit Dermatology [address] [phone] Garo Arriaga PA-C [address] [place] [address] 06/29/2024 11:40 AM EDT Office Visit Family Practice [address] [address] Bryon Winter MD [address] [place] [phone] 07/04/2024 1:20 PM EDT Office Visit General Internal Medicine [facility] [address] [place] [address] Terry Vasquez, [address] [place] [address] 08/09/2024 10:00 AM EST Appointment Vascular Lab [address] [address] 08/09/2024 10:30 AM EST Appointment Vascular Lab [address] [address] 08/09/2024 11:00 AM EST Appointment Vascular Lab [address] [address] 08/09/2024 11:45 AM EST Office Visit Vascular Surg [address] [address] Dashawn Bergeron MD [facility] [place], [place] [id number] 11/30/2024 3:00 PM EST Nurse Only Ancillary [address] [phone] Doretha, Nurse Annual Wellness [address] [place] [address] Health Maintenance Due Date Last Done Comments [...] long-term current use of insulin (HCC)- Primary PAD (peripheral artery disease) (HCC) Peripheral vascular disease, unspecified Hyperlipidemia associated with type 2 diabetes mellitus (HCC) Hypertension associated with type 2 diabetes mellitus (HCC) Atherosclerosis of [place] coronary artery of [place] heart without angina pectoris Abdominal aortic aneurysm (AAA) without rupture, unspecified part (HCC) Iliac aneurysm (HCC) 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
[2024-08-12 04:58] LABS: Basophils # (auto) 0.04 K/uL (0.00-0.20); Basophils % (auto) 0.6 %; Eosinophils # (auto) 0.22 K/uL (0.00-0.50); Eosinophils % (auto) 3.4 %; Hematocrit (blood only) 36.3 % (42.0-52.0); Immature Granulocytes # (auto) 0.05 K/uL (0.01-0.20); Immature Granulocytes % (auto) 0.8 %; Lymphocytes # (auto) 2.05 K/uL (1.20-3.40); Mean Corpuscular Hemoglobin 30.1 pg (25.0-34.0); Mean Corpuscular Hgb Conc 33.1 g/dL (32.0-36.0); Mean Platelet Volume 9.5 fL (9.4-12.4); Monocytes # (auto) 0.62 K/uL (0.11-0.59); Monocytes % (auto) 9.7 %; Neutrophils # (auto) 3.43 K/uL (1.40-6.50); Neutrophils % (auto) 53.5 %; Platelet Count 185 K/uL (130-400); RDW Coefficient of Variation 13.7 % (11.5-14.5); RDW Standard Deviation 45.6 fL (36.4-46.3); Red Blood Count 3.99 M/uL (4.70-6.10); White Blood Count 6.41 K/ul (4.8-10.8)
[2024-08-12] MEDS: LEVOTHYROXINE SODIUM 150 MCG TABLET PO SCH (05:07)
[2024-08-12 05:09] LABS: BUN Creatinine Ratio 28.9 (10-20); Calcium 8.9 mg/dl (8.6-10.3); Chol HDL Ratio 2.6 (0-5); Creatinine Clr Calc Pharmacy 62.9 ml/min
[2024-08-12 05:17] LABS: Troponin I High Sensitivity 1429.3 pg/ml (0-20)
[2024-08-12 06:39] LABS: ANTI-Xa, UFH(UnfractionatedHep 0.55 IU/ml (0.3-0.7)
--- NOTE | 2024-08-12 07:34 | Hospitalist Progress Note ---
Date of Service August 12, 2024 Assessment & Plan (1) Atypical chest pain: (2) Abnormal EKG: (3) Elevated troponin I level: (4) HTN (hypertension): (5) Dyslipidemia: (6) AAA (abdominal aortic aneurysm): (7) Type 2 diabetes mellitus: (8) PAD (peripheral artery disease): Plan Mr. 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 (hypercoag work up negative) and hypothyroidism who was admitted for management of NSTEMI #NSTEMI #Chronic CAD with chronic circumflex occlusion with known right to left collaterals in 1999 ECHO 11/2023 with EF 55-59% and no wall motion abnormalities Troponin up to 1429.3 ECHO with hypokinesis, posterior/lateral WMA , EF 50-55% Home regimen: -Metoprolol Tartrate 50 BID at home--transitioned to Metoprolol XL 25mg -Increased Atorvastatin 20mg daily, LDL 33 and Total Cholesterol 74 -Continue Zetia -Continue ASA 81 -Plavix loaded, plan for 75mg daily -Continue nitro paste q 6 hours -Continue heparin -Plan for cath 08/14/2024 #Aortic root/proximal ascending aorta dilatation stable on ECHO since 2019 at 4.4 cm ECHO stable on echo #AAA #Bilateral iliac aneurysms #Peripheral vascular disease s/p popliteal stenting Follows Dr. Bergeron, [facility] [place] vascular #Chronic normocytic anemia baseline 12-13, likely component related to chronic disease b12 585, folate 8.7, ferritin 92 iron 57, Sat 24 Start po iron #HTN #HLD continue statin and zetia #Hx of DVT/PE in 2012 following popliteal stent on coumadin 6 months, hypercoag w/u negative, no recurrence heparin drip for above NSTEMI #T2DM c/b retinopathy/neuropathy/angiopathy: a1c 6.8 03/21/24, insulin per protocol continue gabapentin Myasthenia Gravis:Follows Dr. Schwartz at [facility] [place], currently not on meds DVT ppx: heparin drip Dispo: admit to PCU FULL CODE PCP: Dr. Vasquez Admission and Anticipated Discharge Date Admission Date: August 11, 2024 Subjective Reports neuropathy, but no other acute concerns this am States his chest pain has improved--he notes he hasn't felt pain previously Physical Exam Constitutional: WD/WN, vitals as above Respiratory: normal respiratory effort, lungs clear to auscultation Cardiovascular: RRR, no murmur, no edema Results & Data Results & Data Vital Signs (Past 12 Hours) Vital Signs Temp Pulse Pulse Resp BP BP Pulse Ox 08/12/24 06:27 61 18 135/67 97 08/12/24 04:31 36.6 C 62 18 112/63 98 08/12/24 01:30 68 16 117/72 94 08/12/24 01:12 69 16 93 08/12/24 01:03 69 18 93 08/12/24 00:51 72 19 95 08/12/24 00:40 72 08/12/24 00:18 36.7 C 72 18 112/70 96 08/12/24 00:09 68 20 112/70 95 08/11/24 23:41 66 18 103/65 93 08/11/24 23:00 70 22 107/67 91 08/11/24 21:57 70 18 107/59 L 93 08/11/24 20:47 79 18 93/59 L 96 08/11/24 19:42 80 18 95 08/11/24 19:38 80 O2 Del Method 08/12/24 06:27 Room Air 08/12/24 04:31 Room Air 08/12/24 01:30 08/12/24 01:12 08/12/24 01:03 08/12/24 00:51 08/12/24 00:40 08/12/24 00:18 Room Air 08/12/24 00:09 08/11/24 23:41 Room Air 08/11/24 23:00 08/11/24 21:57 08/11/24 20:47 08/11/24 19:42 Room Air 08/11/24 19:38 Laboratory Results Short CBC 08/11/24 08/12/24 Range/Units 19:45 04:34 WBC 6.84 6.41 (4.8-10.8) K/ul Hgb 13.1 L 12.0 L (14.0-18.0) g/dl Hct 39.8 L 36.3 L (42.0-52.0) % Plt Count 198 185 (130-400) K/uL BMP 08/11/24 08/12/24 19:45 04:34 Sodium 138 138 Potassium 4.4 4.0 Chloride 105 107 Carbon Dioxide 25 24 BUN 27 H 26 H Creatinine 1.03 0.90 Glucose 131 H 96 Calcium 9.3 8.9 Liver Function 08/11/24 Range/Units 19:45 Total Bilirubin 0.4 (0.2-1.0) mg/dl AST 19 (13-39) U/L ALT 14 (7-52) U/L Alkaline Phosphatase 305 H (34-104) U/L Albumin 3.9 (3.4-5.0) gm/dl Medications Administered Home Medications Medication Instructions Recorded Confirmed Last Taken aspirin 81 mg tablet,delayed 81 mg PO QPM 10/20/19 08/11/24 Unknown release (Adult Aspirin Regimen) cholecalciferol (vitamin D3) 50 2,000 units PO DAILY 10/20/19 08/11/24 Unknown mcg (2,000 unit) tablet ezetimibe 10 mg tablet (Zetia) 10 mg PO QPM 10/20/19 08/11/24 Unknown famotidine 20 mg tablet 20 mg PO BID 10/20/19 08/11/24 Unknown finasteride 5 mg tablet 5 mg PO DAILY 10/20/19 08/11/24 Unknown losartan 50 mg tablet 50 mg PO DAILY 10/20/19 08/11/24 Unknown metoprolol tartrate 50 mg tablet 50 mg PO BID 10/20/19 08/11/24 Unknown terazosin 5 mg capsule 10 mg PO HS 10/20/19 08/11/24 Unknown atorvastatin 10 mg tablet 10 mg PO HS 08/11/24 08/11/24 Unknown gabapentin 600 mg tablet 600 mg PO UD 08/11/24 08/11/24 Unknown levothyroxine 150 mcg tablet 150 mcg PO DAILY@0630 08/11/24 08/11/24 Unknown metformin 500 mg tablet,extended 500 mg PO BIDM 08/11/24 08/11/24 Unknown release 24 hr nifedipine 30 mg tablet,extended 30 mg PO PM 08/11/24 08/11/24 Unknown release pantoprazole 40 mg tablet,delayed 40 mg PO DAILY 08/11/24 08/11/24 Unknown release Active Medications Generic Name Dose Route Start Last Admin Trade Name Naren PRN Reason Stop Dose Admin Famotidine 20 mg 08/12/24 09:00 08/12/24 08:37 Famotidine 20 Mg Tab PO 09/11/24 08:59 20 mg BID SHADY Administration Finasteride 5 mg 08/12/24 09:00 08/12/24 08:37 Finasteride 5 Mg Tab PO 09/11/24 08:59 5 mg DAILY SHADY Administration Heparin Sodium/Dextrose 25,000 units in 500 mls @ 30 mls/hr 08/11/24 22:30 08/12/24 06:57 Heparin Sodium/Dextrose IV 09/10/24 22:29 1,500 units/hr .[id number] SHADY 30 mls/hr Titration Protocol 1,500 UNITS/HR Sodium Chloride 1,000 mls @ 75 mls/hr 08/12/24 02:00 08/12/24 10:22 Nss IV 08/12/24 15:19 Infused .[id number] Infusion Insulin Aspart 0 units 08/12/24 00:30 08/12/24 12:49 Insulin Aspart Per Unit Charge SC 09/11/24 00:15 Not Given Q6 SHADY Levothyroxine Sodium 150 mcg 08/12/24 06:30 08/12/24 05:07 Levothyroxine Sodium 150 Mcg Tablet PO 09/11/24 06:29 150 mcg DAILY@0630 SHADY Administration Magnesium Oxide 400 mg 08/12/24 09:00 08/12/24 08:39 Magnesium Oxide 400 Mg Tab PO 09/11/24 08:59 400 mg BID SHADY Administration Metoprolol Succinate 25 mg 08/12/24 09:00 08/12/24 08:37 Metoprolol Succ 25mg Ext Rel Tab PO 09/11/24 08:59 25 mg QAM SHADY Administration Nitroglycerin 0.5 inch 08/12/24 10:00 08/12/24 10:12 Nitroglycerin 2% Ointment 30gm Tube EXT 09/11/24 09:59 0.5 inch Q6H SHADY Administration Pantoprazole Sodium 40 mg 08/12/24 09:00 08/12/24 08:37 Pantoprazole 40 Mg Tab PO 09/11/24 08:59 40 mg DAILY SHADY Administration
--- NOTE | 2024-08-12 08:18 | Cardiology Consultation ---
Date of Consultation August 12, 2024 Assessment & Plan (1) Acute non-ST elevation myocardial infarction (NSTEMI): (2) PAD (peripheral artery disease): Plan 88-year-old male admitted with non-ST elevation myocardial infarction. Currently pain-free. Echocardiogram with posterior lateral wall motion abnormality. Recommend 300 mg clopidogrel x 1 now, then 75mg daily. Increase atorvastatin to 20 mg daily. Add topical nitrates 1/2 inch every 6 hours. Continue intravenous heparin infusion. Continue medical management for the time being. Patient will be taken to the cardiac catheterization lab urgently with any recurrent chest discomfort. Otherwise, plan diagnostic cardiac catheterization 08/14/2024. Continue aspirin and beta-william as previously ordered. All questions answered to patient's satisfaction. I spent a total of 65 minutes on the date of service in preparation, delivery, and documentation of the care provided to this patient, excluding any time spent in the performance of separately billed services. Nestor Bell DO, [facility] History of Present Illness Reason for Consultation: ACS Requesting Physician: Dr. Shelley Attending Physician: Yomaira Mckeon MD History of Present Illness 88-year-old male presents to the emergency department with chest discomfort. Patient describes a substernal chest discomfort similar to prior myocardial infarction. Discomfort lasted approximately 60 minutes. He summoned EMS who tr eated him with sublingual nitroglycerin spray. Chest pain resolved prior to arrival in the emergency department. He was admitted to the hospitalist service. Elevated high-sensitivity troponin noted. Intravenous heparin ordered overnight. Remains chest pain-free this morning. Preliminary review of bedside 2D transthoracic echocardiogram demonstrates left ventricular ejection fraction of 50% with posterior and basal lateral hypokinesis. No significant valvular pathology. Denies palpitations, lightheadedness, dizziness. No orthopnea, PND, or lower extremity edema. Cardiac Problems: 1. Chronic coronary heart disease, previous circumflex territory myocardial infarction in 1987. 2. Cardiac catheterization in 1999 with stable disease, chronic circumflex terr itory occlusion with right to left collaterals 3. Aortic root and proximal ascending aorta dilatation 4. Peripheral arterial disease including an abdominal aortic aneurysm, bilateral iliac aneurysms, past popliteal artery stenting. Followed by [facility] 5. Past DVT and bilateral pulmonary embolism following right popliteal aneurysm repair at [facility] 6. Myasthenia gravis, followed by [facility]rology 7. Dyslipidemia. Tolerating the current regimen of Lescol and Zetia, intolerant to 3-4 other statins per patient report 8. Hypertension, controlled. Allergies Allergy/AdvReac Type Severity Reaction Status Date / Time No Known Allergies Allergy Verified 11/28/19 14:05 Home Medications Medication Instructions Recorded Confirmed Type aspirin 81 mg tablet,delayed 81 mg PO QPM 10/20/19 08/11/24 History release (Adult Aspirin Regimen) cholecalciferol (vitamin D3) 50 2,000 units PO DAILY 10/20/19 08/11/24 History mcg (2,000 unit) tablet ezetimibe 10 mg tablet (Zetia) 10 mg PO QPM 10/20/19 08/11/24 History famotidine 20 mg tablet 20 mg PO BID 10/20/19 08/11/24 History finasteride 5 mg tablet 5 mg PO DAILY 10/20/19 08/11/24 History losartan 50 mg tablet 50 mg PO DAILY 10/20/19 08/11/24 History metoprolol tartrate 50 mg tablet 50 mg PO BID 10/20/19 08/11/24 History terazosin 5 mg capsule 10 mg PO HS 10/20/19 08/11/24 History atorvastatin 10 mg tablet 10 mg PO HS 08/11/24 08/11/24 History gabapentin 600 mg tablet 600 mg PO UD 08/11/24 08/11/24 History levothyroxine 150 mcg tablet 150 mcg PO DAILY@0630 08/11/24 08/11/24 History metformin 500 mg tablet,extended 500 mg PO BIDM 08/11/24 08/11/24 History release 24 hr nifedipine 30 mg tablet,extended 30 mg PO PM 08/11/24 08/11/24 History release pantoprazole 40 mg tablet,delayed 40 mg PO DAILY 08/11/24 08/11/24 History release Patient History Medical History (Updated 08/11/24 @ 23:47 by Royal Carter DO) Cataract fragments in right eye following surgery Surgical History History of left cataract surgery Social History Smoking Status: Former smoker Hx Alcohol Use: No Hx Substance Use: No Preferred Language: Uzbek Communication Ability: Effective Visual Impairment: No Limitations Hearing Ability: Normal Proposal Editor Required: No Beliefs That Will Affect Care: None marital status: Current Living Situation: Personal Care Facility Current Living Situation Comment: [facility] current occupational status: retired Other Information That Helps Us Care for You: No Feels Safe at Home: Yes Safety Concerns: Feels Safe At This Time Assistive Devices: Glasses, Hearing Aid - Bilateral and Scooter/Electric Scooter Review of Systems Review of Systems: All systems reviewed & are unremarkable except as noted in Subjective Physical Exam Constitutional: well developed and well nourished; no acute distress Respiratory: normal respiratory effort; no respiratory distress and no labored breathing Auscultation: no crackles, no rales, no rhonchi and no wheezes Cardiovascular: Rate/Rhythm: regular rate and regular rhythm Heart Sounds: normal S1, normal S2 and + murmur (1/6 NADINE) Vessels: radial pulses present; no JVD and no carotid bruit Extremities: no edema Gastrointestinal (Abdomen): Inspection/Auscultation: abdomen normal to inspection and normal bowel sounds; abdomen not distended Percussion/Palpation: abdomen soft; abdomen nontender, no guarding and abdomen not rigid Neurologic: CN's II-XI intact bilaterally and moves all extremities; no focal motor deficits Results & Data Vital Signs (Past 12 Hours) Vital Signs Temp Pulse Pulse Resp BP BP Pulse Ox 08/12/24 06:27 61 18 135/67 97 08/12/24 04:31 36.6 C 62 18 112/63 98 08/12/24 01:30 68 16 117/72 94 08/12/24 01:12 69 16 93 08/12/24 01:03 69 18 93 08/12/24 00:51 72 19 95 08/12/24 00:40 72 08/12/24 00:18 36.7 C 72 18 112/70 96 08/12/24 00:09 68 20 112/70 95 08/11/24 23:41 66 18 103/65 93 08/11/24 23:00 70 22 107/67 91 08/11/24 21:57 70 18 107/59 L 93 08/11/24 20:47 79 18 93/59 L 96 O2 Del Method 08/12/24 06:27 Room Air 08/12/24 04:31 Room Air 08/12/24 01:30 08/12/24 01:12 08/12/24 01:03 08/12/24 00:51 08/12/24 00:40 08/12/24 00:18 Room Air 08/12/24 00:09 08/11/24 23:41 Room Air 08/11/24 23:00 08/11/24 21:57 08/11/24 20:47 Laboratory Results Cardiac Enzymes 08/11/24 08/11/24 08/12/24 Range/Units 19:45 21:31 04:34 AST 19 (13-39) U/L Troponin I High Sens 52.5 H* 353.2 H* D 1429.3 H* D (0-20) pg/ml Coagulation 08/11/24 Range/Units 19:45 APTT 27 (21-31) Seconds Lipids 08/12/24 Range/Units 04:34 Triglycerides 58 (0-150) mg/dl Cholesterol 74 (0-200) mg/dl HDL Cholesterol 29 mg/dl Cholesterol/HDL Ratio 2.6 (0-5) CBC 08/11/24 08/12/24 Range/Units 19:45 04:34 WBC 6.84 6.41 (4.8-10.8) K/ul RBC 4.41 L 3.99 L (4.70-6.10) M/uL Hgb 13.1 L 12.0 L (14.0-18.0) g/dl Hct 39.8 L 36.3 L (42.0-52.0) % Plt Count 198 185 (130-400) K/uL Neut # (Auto) 4.04 3.43 (1.40-6.50) K/uL Lymph # (Auto) 1.86 2.05 (1.20-3.40) K/uL Marshall # (Auto) 0.67 H 0.62 H (0.11-0.59) K/uL Eos # (Auto) 0.20 0.22 (0.00-0.50) K/uL Baso # (Auto) 0.03 0.04 (0.00-0.20) K/uL Comprehensive Metabolic Panel 08/11/24 08/12/24 Range/Units 19:45 04:34 Sodium 138 138 (136-145) mmol/L Potassium 4.4 4.0 (3.5-5.1) mmol/L Chloride 105 107 (98-107) mmol/L Carbon Dioxide 25 24 (21-32) mmol/L BUN 27 H 26 H (6-23) mg/dl Creatinine 1.03 0.90 (0.6-1.4) mg/dl Glucose 131 H 96 (70-99(Fasting)) mg/dl Calcium 9.3 8.9 (8.6-10.3) mg/dl AST 19 (13-39) U/L ALT 14 (7-52) U/L Alkaline Phosphatase 305 H (34-104) U/L Total Protein 6.5 (6.0-8.3) gm/dl Albumin 3.9 (3.4-5.0) gm/dl Intake and Output 08/11/24 08/12/24 08/12/24 22:59 06:59 14:59 Intake Total 2047 Output Total 651 / 651 Balance 60 / 1397 1337 / 1397 Intake: IV 2047 Heparin Sodium/Dextrose 25,000 228 / 228 units In 500 ml @ 1,500 UNITS/ HR 30 mls/hr IV .[id number] [facility] Rx #:[id number] Sodium Chloride 0.9% 1,000 ml @ 60 / 1820 1760 / 1820 200 mls/hr IV .Q5H ONE Rx#: [id number] Output: Urine 650 / 650 # Bowel Movements Other: Weight 90 kg 92.2 kg Weight Measurement Method Estimated by Patient Built in [facility] Diagnostic Findings 2D echocardiogram report 11/23/2023: The qualitative LV ejection fraction is 55-59% (normal). No LV segmental wall motion abnormalities. The aortic root and proximal ascending aorta are mildly enlarged. Mild aortic valve regurgitation is present. Compared to last available study, there has been no interval change. 2D echocardiogram performed 12/29/21: The qualitative LV ejection fraction is 50-54% (normal). No LV segmental wall motion abnormalities. The aortic root and proximal ascending aorta are mildly enlarged measuring 4.4 and 4.4 cm respectively. No significant change is noted from prior study dated 05-16-20. Mild aortic valve regurgitation is present.
[2024-08-12 08:35] LABS: Ferritin 92.1 ng/ml (8-388)
[2024-08-12 08:36] LABS: Folate (Folic Acid),Ser orPlas 8.74 ng/ml (>5.38)
[2024-08-12] MEDS: GABAPENTIN 600 MG TAB PO STA ×2 (08:37→14:38)
[2024-08-12] MEDS: FINASTERIDE 5 MG TAB PO SCH (08:37)
[2024-08-12] MEDS: METOPROLOL SUCC 25MG EXT REL TAB PO SCH (08:37)
[2024-08-12] MEDS: PANTOprazole 40 MG TAB PO SCH (08:37)
[2024-08-12] MEDS: FAMOTIDINE 20 MG TAB PO SCH (08:37)
[2024-08-12] MEDS: MAGNESIUM OXIDE 400 MG TAB PO SCH (08:39)
[2024-08-12] MEDS: MAGNESIUM SULFATE / D5W 1 GM/100 ML BAG IV ONE (10:09)
[2024-08-12] MEDS: CLOPIDOGREL BISULFATE 300 MG TAB PO STA (10:09)
[2024-08-12] MEDS: NITROGLYCERIN 2% OINTMENT 30GM TUBE EXT SCH (10:12)
[2024-08-12] MEDS ORDERED: Nursing to Pharmacy Communication SCH (18:30)
[2024-08-12] MEDS: GABAPENTIN 600 MG TAB PO SCH ×2 (19:14→22:06)
[2024-08-12] MEDS ORDERED: ATORVASTATIN 10 MG TAB PO SCH (21:00)
[2024-08-12] MEDS: ATORVASTATIN 20 MG TAB PO SCH (21:19)
[2024-08-12] MEDS: ASPIRIN 81 MG ECTAB PO SCH (21:19)
[2024-08-12] MEDS: EZETIMIBE 10 MG TAB PO SCH (21:19)
[2024-08-13 04:18] LABS: Hematocrit (blood only) 37.4 % (42.0-52.0); Hemoglobin 12.4 g/dl (14.0-18.0); Mean Corpuscular Hemoglobin 30.2 pg (25.0-34.0); Mean Corpuscular Hgb Conc 33.2 g/dL (32.0-36.0); Mean Platelet Volume 9.7 fL (9.4-12.4); Platelet Count 199 K/uL (130-400); RDW Coefficient of Variation 13.8 % (11.5-14.5); RDW Standard Deviation 45.9 fL (36.4-46.3); Red Blood Count 4.11 M/uL (4.70-6.10); White Blood Count 6.08 K/ul (4.8-10.8)
[2024-08-13 04:34] LABS: BUN Creatinine Ratio 20.9 (10-20); Creatinine Clr Calc Pharmacy 65.8 ml/min; Magnesium 1.7 mg/dl (1.7-2.4); Phosphorus 3.5 mg/dl (2.5-4.9); Potassium 3.9 mmol/L (3.5-5.1)
[2024-08-13 04:41] LABS: ANTI-Xa, UFH(UnfractionatedHep 0.89 IU/ml (0.3-0.7)
--- NOTE | 2024-08-13 06:59 | Hospitalist Progress Note ---
Date of Service August 13, 2024 Assessment & Plan (1) Atypical chest pain: (2) Abnormal EKG: (3) Elevated troponin I level: (4) HTN (hypertension): (5) Dyslipidemia: (6) AAA (abdominal aortic aneurysm): (7) Type 2 diabetes mellitus: (8) PAD (peripheral artery disease): Plan Mr. 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 (hypercoag work up negative) and hypothyroidism who was admitted for management of NSTEMI Remains on heparin drip Plan for diagnostic cath on Wednesday Working on mobilization as able today in bedside chair #NSTEMI #Chronic CAD with chronic circumflex occlusion with known right to left collaterals in 1999 ECHO 11/2023 with EF 55-59% and no wall motion abnormalities Troponin up to 1429.3, down trending ECHO with hypokinesis, posterior/lateral WMA , EF 50-55% Home regimen: -Metoprolol Tartrate 50 BID at home--transitioned to Metoprolol XL 25mg -Increased Atorvastatin 20mg daily, LDL 33 and Total Cholesterol 74 -Continue Zetia -Continue ASA 81 -Plavix loaded, continue plavix 75mg daily -Continue nitro paste q 6 hours -Continue heparin -Plan for cath 08/14/2024 #Aortic root/proximal ascending aorta dilatation stable on ECHO since 2019 at 4.4 cm ECHO stable on echo #AAA #Bilateral iliac aneurysms #Peripheral vascular disease s/p popliteal stenting Follows Dr. Bergeron, [facility] [place] vascular #Chronic normocytic anemia baseline 12-13, likely component related to chronic disease b12 585, folate 8.7, ferritin 92 iron 57, Sat 24 continue po iron #HTN Metoprolol BID #HLD continue statin and zetia #Hx of DVT/PE in 2012 following popliteal stent on coumadin 6 months, hypercoag w/u negative, no recurrence heparin drip for above NSTEMI #T2DM c/b retinopathy/neuropathy/angiopathy: a1c 6.8 03/21/24, insulin per protocol continue gabapentin Myasthenia Gravis:Follows Dr. Schwartz at [facility] [place], currently not on meds DVT ppx: heparin drip Dispo: admit to PCU FULL CODE PCP: Dr. Vasquez Admission and Anticipated Discharge Date Admission Date: August 11, 2024 Subjective No chest pain since admission Reports feeling well Discussed that he is in a power chair usually due to his neuropathy, but can help with transfers and uses walker at baseline for small "trips" to bathroom or in small areas. Patient denies any new symptoms as of this am Physical Exam Constitutional: WD/WN, vitals as above Respiratory: normal respiratory effort, lungs clear to auscultation Cardiovascular: RRR, no murmur, no edema Results & Data Results & Data Vital Signs (Past 12 Hours) Vital Signs Temp Pulse Pulse Pulse Resp BP Pulse Ox 08/13/24 03:00 36.4 C L 106 H 14 121/75 95 08/13/24 00:00 36.4 C L 08/13/24 00:00 71 12 150/99 H 92 08/13/24 00:00 81 08/12/24 22:00 36.4 C L 69 16 154/96 H 95 08/12/24 21:00 71 15 133/86 94 08/12/24 20:00 36.4 C L 83 17 126/87 90 08/12/24 19:00 36.5 C 90 17 133/89 96 O2 Del Method 08/13/24 03:00 Room Air 08/13/24 00:00 08/13/24 00:00 Room Air 08/13/24 00:00 08/12/24 22:00 Room Air 08/12/24 21:00 Room Air 08/12/24 20:00 Room Air 08/12/24 19:00 Room Air Laboratory Results Short CBC 08/13/24 Range/Units 04:00 WBC 6.08 (4.8-10.8) K/ul Hgb 12.4 L (14.0-18.0) g/dl Hct 37.4 L (42.0-52.0) % Plt Count 199 (130-400) K/uL BMP 08/13/24 04:00 Sodium 138 Potassium 3.9 Chloride 106 Carbon Dioxide 26 BUN 18 Creatinine 0.86 Glucose 104 H Calcium 9.0 Medications Administered Home Medications Medication Instructions Recorded Confirmed Last Taken aspirin 81 mg tablet,delayed 81 mg PO QPM 10/20/19 08/11/24 Unknown release (Adult Aspirin Regimen) cholecalciferol (vitamin D3) 50 2,000 units PO DAILY 10/20/19 08/11/24 Unknown mcg (2,000 unit) tablet ezetimibe 10 mg tablet (Zetia) 10 mg PO QPM 10/20/19 08/11/24 Unknown famotidine 20 mg tablet 20 mg PO BID 10/20/19 08/11/24 Unknown finasteride 5 mg tablet 5 mg PO DAILY 10/20/19 08/11/24 Unknown losartan 50 mg tablet 50 mg PO DAILY 10/20/19 08/11/24 Unknown metoprolol tartrate 50 mg tablet 50 mg PO BID 10/20/19 08/11/24 Unknown terazosin 5 mg capsule 10 mg PO HS 10/20/19 08/11/24 Unknown atorvastatin 10 mg tablet 10 mg PO HS 08/11/24 08/11/24 Unknown gabapentin 600 mg tablet 600 mg PO UD 08/11/24 08/11/24 Unknown levothyroxine 150 mcg tablet 150 mcg PO DAILY@0630 08/11/24 08/11/24 Unknown metformin 500 mg tablet,extended 500 mg PO BIDM 08/11/24 08/11/24 Unknown release 24 hr nifedipine 30 mg tablet,extended 30 mg PO PM 08/11/24 08/11/24 Unknown release pantoprazole 40 mg tablet,delayed 40 mg PO DAILY 08/11/24 08/11/24 Unknown release Active Medications Generic Name Dose Route Start Last Admin Trade Name Naren PRMedina Reason Stop Dose Admin Aspirin 81 mg 08/12/24 21:00 08/12/24 21:19 Aspirin 81 Mg Ectab PO 09/11/24 20:59 81 mg QPM SHADY Administration Atorvastatin Calcium 20 mg 08/12/24 21:00 08/12/24 21:19 Atorvastatin 20 Mg Tab PO 09/11/24 20:59 20 mg HS SHADY Administration Clopidogrel Bisulfate 75 mg 08/13/24 09:00 08/13/24 08:01 Clopidogrel Bisulfate 75 Mg Tab PO 09/12/24 08:59 75 mg QAM SHADY Administration Ezetimibe 10 mg 08/12/24 21:00 08/12/24 21:19 Ezetimibe 10 Mg Tab PO 09/11/24 20:59 10 mg QPM SHADY Administration Famotidine 20 mg 08/12/24 09:00 08/13/24 08:01 Famotidine 20 Mg Tab PO 09/11/24 08:59 20 mg BID SHADY Administration Finasteride 5 mg 08/12/24 09:00 08/13/24 08:01 Finasteride 5 Mg Tab PO 09/11/24 08:59 5 mg DAILY SHADY Administration Gabapentin 600 mg 08/12/24 19:00 08/12/24 19:14 Gabapentin 600 Mg Tab PO 09/11/24 18:59 Not Given DAILY@1900 [facility] Protocol Gabapentin 1,200 mg 08/12/24 22:00 08/12/24 22:06 Gabapentin 600 Mg Tab PO 09/11/24 21:59 1,200 mg DAILY@2200 [facility] Administration Protocol Heparin Sodium/Dextrose 25,000 units in 500 mls @ 27 mls/hr 08/11/24 22:30 08/13/24 07:14 Heparin Sodium/Dextrose IV 09/10/24 22:29 1,350 units/hr .[id number] [facility] 27 mls/hr Titration Protocol 1,350 UNITS/HR Insulin Aspart 0 units 08/12/24 21:00 08/13/24 08:02 Insulin Aspart Per Unit Charge SC 09/11/24 20:59 Not Given ACHS [facility] Levothyroxine Sodium 150 mcg 08/12/24 06:30 08/13/24 06:02 Levothyroxine Sodium 150 Mcg Tablet PO 09/11/24 06:29 150 mcg DAILY@0630 [facility] Administration Magnesium Oxide 400 mg 08/12/24 09:00 08/13/24 08:01 Magnesium Oxide 400 Mg Tab PO 09/11/24 08:59 400 mg BID SHADY Administration Metoprolol Succinate 25 mg 08/12/24 09:00 08/13/24 08:01 Metoprolol Succ 25mg Ext Rel Tab PO 09/11/24 08:59 25 mg QAM SHADY Administration Nitroglycerin 0.5 inch 08/12/24 10:00 08/13/24 03:54 Nitroglycerin 2% Ointment 30gm Tube EXT 09/11/24 09:59 0.5 inch Q6H SHADY Administration Pantoprazole Sodium 40 mg 08/12/24 09:00 08/13/24 08:01 Pantoprazole 40 Mg Tab PO 09/11/24 08:59 40 mg DAILY SHADY Administration
[2024-08-13] MEDS: CLOPIDOGREL BISULFATE 75 MG TAB PO SCH (08:01)
--- NOTE | 2024-08-13 09:46 | Cardiology Progress Note ---
Date of Service August 13, 2024 Assessment & Plan (1) Acute non-ST elevation myocardial infarction (NSTEMI): (2) PAD (peripheral artery disease): Plan 88-year-old male admitted with non-ST elevation myocardial infarction. Pain- free. Echocardiogram with posterior lateral wall motion abnormality. Continue IV heparin, aspirin, clopidogrel, statin, and beta-william therapy. Add losartan 12.5 mg daily. Diagnostic cardiac catheterization 08/14/2024. N.p.o. except medications after midnight. All questions answered to patient's satisfaction. Nestor Bell DO [facility] Admission and Anticipated Discharge Date Admission Date: August 11, 2024 Subjective 88-year-old patient seen and examined at the bedside. No recurrent chest pain o vernight. Telemetry reveals sinus rhythm in the 60s to 80s. Tolerated a.m. meal. Offers no complaints. Review of Systems Review of Systems: All systems reviewed & are unremarkable except as noted in Subjective Physical Exam Constitutional: well developed and well nourished; no acute distress Respiratory: normal respiratory effort; no respiratory distress and no labored breathing Auscultation: no crackles, no rales, no rhonchi and no wheezes Cardiovascular: Rate/Rhythm: regular rate and regular rhythm Heart Sounds: normal S1, normal S2 and + murmur (1/6 NADINE) Vessels: radial pulses present; no JVD and no carotid bruit Extremities: no edema Gastrointestinal (Abdomen): Inspection/Auscultation: abdomen normal to inspection and normal bowel sounds; abdomen not distended Percu ssion/Palpation: abdomen soft; abdomen nontender, no guarding and abdomen not rigid Neurologic: CN's II-XI intact bilaterally and moves all extremities; no focal motor deficits Results & Data Vital Signs (Past 12 Hours) Vital Signs Temp Pulse Pulse Pulse Resp BP Pulse Ox 08/13/24 07:53 36.1 C L 93 H 22 118/70 91 08/13/24 03:00 36.4 C L 106 H 14 121/75 95 08/13/24 00:00 36.4 C L 08/13/24 00:00 71 12 150/99 H 92 08/13/24 00:00 81 08/12/24 22:00 36.4 C L 69 16 154/96 H 95 O2 Del Method 08/13/24 07:53 Room Air 08/13/24 03:00 Room Air 08/13/24 00:00 08/13/24 00:00 Room Air 08/13/24 00:00 08/12/24 22:00 Room Air
[2024-08-13] MEDS: LOSARTAN POTASSIUM 25 MG TAB PO SCH (11:50)
[2024-08-13 15:48] LABS: ANTI-Xa, UFH(UnfractionatedHep 0.65 IU/ml (0.3-0.7)
[2024-08-14 06:05] LABS: Hematocrit (blood only) 37.3 % (42.0-52.0); Hemoglobin 12.5 g/dl (14.0-18.0); Mean Corpuscular Hemoglobin 29.8 pg (25.0-34.0); Mean Corpuscular Hgb Conc 33.5 g/dL (32.0-36.0); Mean Platelet Volume 9.6 fL (9.4-12.4); Platelet Count 217 K/uL (130-400); RDW Coefficient of Variation 13.7 % (11.5-14.5); RDW Standard Deviation 44.6 fL (36.4-46.3); Red Blood Count 4.19 M/uL (4.70-6.10); White Blood Count 6.43 K/ul (4.8-10.8)
[2024-08-14 06:22] LABS: BUN Creatinine Ratio 20.6 (10-20); Calcium 9.2 mg/dl (8.6-10.3); Creatinine Clr Calc Pharmacy 55.5 ml/min
--- NOTE | 2024-08-14 10:12 | Cardiology Progress Note ---
Date of Service August 14, 2024 Assessment & Plan (1) Acute non-ST elevation myocardial infarction (NSTEMI): (2) PAD (peripheral artery disease): Plan 88-year-old male admitted with non-ST elevation myocardial infarction. Peak troponin 1429. Remains pain-free. Echocardiogram with posterior lateral wall motion abnormality. No contraindications to cardiac catheterization. Last procedure via femoral access in 1999 Good radial pulses Plan: Continue IV heparin, aspirin, clopidogrel, statin, and beta-william therapy. Add losartan 12.5 mg daily. Diagnostic cardiac catheterization Today N.p.o. except medications after midnight. Admission and Anticipated Discharge Date Admission Date: August 11, 2024 Subjective Patient was seen and examined, chart, medications, telemetry reviewed. No chest pain or discomfort since hospitalization. N.p.o. after midnight for anticipated cardiac catheterization this morning. Prior cardiac catheterization via femoral approach in 1999. No complications with procedure. No difficulties with prior sedation or anesthesia. Past cardiac catheterization demonstrated chronic circumflex occlusion Review of Systems Review of Systems: All systems reviewed & are unremarkable except as noted in Subjective Physical Exam Constitutional: well developed and well nourished; no acute distress Eyes: PERRL, conjunctivae normal, anicteric sclerae Neck: trachea midline, no thyromegaly Respiratory: normal respiratory effort; no respiratory distress and no labored breathing Auscultation: no crackles, no rales, no rhonchi and no wheezes Cardiovascular: Rate/Rhythm: regular rate and regular rhythm Heart Sounds: normal S1, normal S2 and + murmur (1/6 NADINE) Vessels: radial pulses present; no JVD and no carotid bruit Extremities: no edema Gastrointestinal (Abdomen): Inspection/Auscultation: abdomen normal to inspection and normal bowel sounds; abdomen not distended Percussion/Palpation: abdomen soft; abdomen nontender, no guarding and abdomen not rigid Neurologic: CN's II-XI intact bilaterally and moves all extremities; no focal motor deficits Results & Data Vital Signs (Past 12 Hours) Vital Signs Temp Pulse Pulse Pulse Resp BP Pulse Ox 08/14/24 08:00 74 08/14/24 07:46 36.3 C L 75 16 139/88 94 08/14/24 03:49 36.7 C 88 19 132/95 94 08/13/24 23:52 36.6 C 73 20 148/97 H 92 08/13/24 23:00 71 O2 Del Method 08/14/24 08:00 08/14/24 07:46 Room Air 08/14/24 03:49 Room Air 08/13/24 23:52 Room Air 08/13/24 23:00 Laboratory Results Laboratory Results - last 24 hr 08/13/24 08/13/24 08/13/24 10:51 14:59 15:29 WBC RBC Hgb Hct MCV MCH MCHC RDW Std Deviation RDW Coeff of Jaleel Plt Count MPV Heparin Anti-Xa, Unfract 0.65 Sodium Potassium Chloride Carbon Dioxide Anion Gap BUN Creatinine Est Cr Clr Drug Dosing eGFR BUN/Creatinine Ratio Glucose POC Glucose 123 H 106 H Calcium 08/13/24 08/14/24 08/14/24 20:30 05:28 05:37 WBC 6.43 RBC 4.19 L Hgb 12.5 L Hct 37.3 L MCV 89.0 MCH 29.8 MCHC 33.5 RDW Std Deviation 44.6 RDW Coeff of Jaleel 13.7 Plt Count 217 MPV 9.6 Heparin Anti-Xa, Unfract 0.60 Sodium 139 Potassium 4.0 Chloride 104 Carbon Dioxide 27 Anion Gap 8 BUN 21 Creatinine 1.02 Est Cr Clr Drug Dosing 55.5 eGFR 70.25 BUN/Creatinine Ratio 20.6 H Glucose 108 H POC Glucose 99 101 H Calcium 9.2
--- NOTE | 2024-08-14 11:09 | Hospitalist Progress Note ---
Date of Service August 14, 2024 Assessment & Plan (1) Atypical chest pain: (2) Abnormal EKG: (3) Elevated troponin I level: (4) HTN (hypertension): (5) Dyslipidemia: (6) AAA (abdominal aortic aneurysm): (7) Type 2 diabetes mellitus: (8) PAD (peripheral artery disease): Plan Mr. 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 (hypercoag work up negative) and hypothyroidism who was admitted for management of NSTEMI Remains on heparin drip, plan for [facility] today #NSTEMI #Chronic CAD with chronic circumflex occlusion with known right to left collaterals in 1999 ECHO 11/2023 with EF 55-59% and no wall motion abnormalities Troponin up to 1429.3, down trending ECHO with hypokinesis, posterior/lateral WMA , EF 50-55% Home regimen: -Metoprolol Tartrate 50 BID at home--transitioned to Metoprolol XL 25mg -Increased Atorvastatin 20mg daily, LDL 33 and Total Cholesterol 74 -Continue Zetia -Continue ASA 81 -Plavix loaded, continue plavix 75mg daily -Continue nitro paste q 6 hours -Continue heparin -Will eval post cath 08/14 #Aortic root/proximal ascending aorta dilatation stable on ECHO since 2019 at 4.4 cm ECHO stable on echo #AAA #Bilateral iliac aneurysms #Peripheral vascular disease s/p popliteal stenting Follows Dr. Bergeron, [facility] [place] [facility] #Chronic normocytic anemia baseline 12-13, likely component related to chronic disease b12 585, folate 8.7, ferritin 92 iron 57, Sat 24 continue po iron #HTN Metoprolol BID #HLD continue statin and zetia #Hx of DVT/PE in 2012 following popliteal stent on coumadin 6 months, hypercoag w/u negative, no recurrence heparin drip for above NSTEMI #T2DM c/b retinopathy/neuropathy/angiopathy: a1c 6.8 03/21/24, insulin per protocol continue gabapentin Myasthenia Gravis:Follows Dr. Schwartz at [facility] [place], currently not on meds DVT ppx: heparin drip Dispo: contingent on post cath FULL CODE PCP: Dr. Vasquez Admission and Anticipated Discharge Date Admission Date: August 11, 2024 Subjective NAEO, evaluated at bedside, remains on heparin denies any chest pain, ready for procedure today neuropathy better controlled with home regimen in place Physical Exam Constitutional: WD/WN, vitals as above Cardiovascular: RRR, no murmur, no edema Chest (Breasts): normal inspection/palpation of breasts Gastrointestinal (Abdomen): normal bowel sounds, soft, nontender, no hepatosplenomegaly Results & Data Results & Data Vital Signs (Past 12 Hours) Vital Signs Temp Pulse Pulse Pulse Resp BP Pulse Ox 08/14/24 08:00 74 08/14/24 07:46 36.3 C L 75 16 139/88 94 08/14/24 03:49 36.7 C 88 19 132/95 94 08/13/24 23:52 36.6 C 73 20 148/97 H 92 O2 Del Method 08/14/24 08:00 08/14/24 07:46 Room Air 08/14/24 03:49 Room Air 08/13/24 23:52 Room Air Laboratory Results Short CBC 08/14/24 Range/Units 05:37 WBC 6.43 (4.8-10.8) K/ul Hgb 12.5 L (14.0-18.0) g/dl Hct 37.3 L (42.0-52.0) % Plt Count 217 (130-400) K/uL BMP 08/14/24 05:37 Sodium 139 Potassium 4.0 Chloride 104 Carbon Dioxide 27 BUN 21 Creatinine 1.02 Glucose 108 H Calcium 9.2 Medications Administered Home Medications Medication Instructions Recorded Confirmed Last Taken aspirin 81 mg tablet,delayed 81 mg PO QPM 10/20/19 08/11/24 Unknown release (Adult Aspirin Regimen) cholecalciferol (vitamin D3) 50 2,000 units PO DAILY 10/20/19 08/11/24 Unknown mcg (2,000 unit) tablet ezetimibe 10 mg tablet (Zetia) 10 mg PO QPM 10/20/19 08/11/24 Unknown famotidine 20 mg tablet 20 mg PO BID 10/20/19 08/11/24 Unknown finasteride 5 mg tablet 5 mg PO DAILY 10/20/19 08/11/24 Unknown losartan 50 mg tablet 50 mg PO DAILY 10/20/19 08/11/24 Unknown metoprolol tartrate 50 mg tablet 50 mg PO BID 10/20/19 08/11/24 Unknown terazosin 5 mg capsule 10 mg PO HS 10/20/19 08/11/24 Unknown atorvastatin 10 mg tablet 10 mg PO HS 08/11/24 08/11/24 Unknown gabapentin 600 mg tablet 600 mg PO UD 08/11/24 08/11/24 Unknown levothyroxine 150 mcg tablet 150 mcg PO DAILY@0630 08/11/24 08/11/24 Unknown metformin 500 mg tablet,extended 500 mg PO BIDM 08/11/24 08/11/24 Unknown release 24 hr nifedipine 30 mg tablet,extended 30 mg PO PM 08/11/24 08/11/24 Unknown release pantoprazole 40 mg tablet,delayed 40 mg PO DAILY 08/11/24 08/11/24 Unknown release Active Medications Generic Name Dose Route Start Last Admin Trade Name Naren PRN Reason Stop Dose Admin Aspirin 81 mg 08/12/24 21:00 08/13/24 20:56 Aspirin 81 Mg Ectab PO 09/11/24 20:59 81 mg QPM SHADY Administration Atorvastatin Calcium 20 mg 08/12/24 21:00 08/13/24 20:56 Atorvastatin 20 Mg Tab PO 09/11/24 20:59 20 mg HS SHADY Administration Clopidogrel Bisulfate 75 mg 08/13/24 09:00 08/14/24 10:23 Clopidogrel Bisulfate 75 Mg Tab PO 09/12/24 08:59 75 mg QAM SHADY Administration Ezetimibe 10 mg 08/12/24 21:00 08/13/24 20:55 Ezetimibe 10 Mg Tab PO 09/11/24 20:59 10 mg QPM SHADY Administration Famotidine 20 mg 08/12/24 09:00 08/14/24 09:28 Famotidine 20 Mg Tab PO 09/11/24 08:59 20 mg BID SHADY Administration Finasteride 5 mg 08/12/24 09:00 08/14/24 09:27 Finasteride 5 Mg Tab PO 09/11/24 08:59 5 mg DAILY SHADY Administration Gabapentin 600 mg 08/12/24 19:00 08/13/24 19:26 Gabapentin 600 Mg Tab PO 09/11/24 18:59 600 mg DAILY@1900 SHADY Administration Protocol Gabapentin 1,200 mg 08/12/24 22:00 08/13/24 21:58 Gabapentin 600 Mg Tab PO 09/11/24 21:59 1,200 mg DAILY@2200 SHADY Administration Protocol Heparin Sodium/Dextrose 25,000 units in 500 mls @ 27 mls/hr 08/11/24 22:30 08/14/24 07:15 Heparin Sodium/Dextrose IV 09/10/24 22:29 1,350 units/hr .[id number] SHADY 27 mls/hr Titration Protocol 1,350 UNITS/HR Insulin Aspart 0 units 08/12/24 21:00 08/14/24 07:36 Insulin Aspart Per Unit Charge SC 09/11/24 20:59 Not Given ACHS SHADY Levothyroxine Sodium 150 mcg 08/12/24 06:30 08/14/24 05:35 Levothyroxine Sodium 150 Mcg Tablet PO 09/11/24 06:29 150 mcg DAILY@0630 SHADY Administration Losartan Potassium 12.5 mg 08/13/24 10:00 08/14/24 09:27 Losartan Potassium 25 Mg Tab PO 09/12/24 09:59 12.5 mg QAM SHADY Administration Magnesium Oxide 400 mg 08/12/24 09:00 08/14/24 09:29 Magnesium Oxide 400 Mg Tab PO 09/11/24 08:59 400 mg BID SHADY Administration Metoprolol Succinate 25 mg 08/12/24 09:00 08/14/24 09:28 Metoprolol Succ 25mg Ext Rel Tab PO 09/11/24 08:59 25 mg QAM SHADY Administration Nitroglycerin 0.5 inch 08/12/24 10:00 08/14/24 10:23 Nitroglycerin 2% Ointment 30gm Tube EXT 09/11/24 09:59 0.5 inch Q6H SHADY Administration Pantoprazole Sodium 40 mg 08/12/24 09:00 08/14/24 09:28 Pantoprazole 40 Mg Tab PO 09/11/24 08:59 40 mg DAILY SHADY Administration
--- NOTE | 2024-08-14 13:40 | Pre Anesthesia Assessment ---
Date of Service August 14, 2024 Pre Sedation Assessment Vital Signs Temp Pulse Pulse Pulse Resp BP Pulse Ox 08/14/24 12:18 69 14 150/88 H 95 08/14/24 11:23 36.6 C 60 16 158/85 H 94 08/14/24 08:00 74 08/14/24 07:46 36.3 C L 75 16 139/88 94 08/14/24 03:49 36.7 C 88 19 132/95 94 08/13/24 23:52 36.6 C 73 20 148/97 H 92 08/13/24 23:00 71 08/13/24 21:50 36.8 C 70 16 150/88 H 94 08/13/24 19:00 36.4 C L 72 17 147/98 H 95 08/13/24 15:16 36.5 C 66 18 130/88 94 O2 Del Method 08/14/24 12:18 Room Air 08/14/24 11:23 Room Air 08/14/24 08:00 08/14/24 07:46 Room Air 08/14/24 03:49 Room Air 08/13/24 23:52 Room Air 08/13/24 23:00 08/13/24 21:50 Room Air 08/13/24 19:00 Room Air 08/13/24 15:16 Room Air Cardiovascular RRR, no murmur, no edema Respiratory normal respiratory effort, lungs clear to auscultation Pre-Sedation Airway Assessment Smoking Status: Former smoker Short, Thick Neck: No Thyromental Distance: > or= 3.5 Finger Breadths Oral Cavity: + WNL Mallampati Class: III ASA: ASA3 NPO Status Date of Last Intake of Fluids: 08/13/24 Time of Last Intake of Fluids: 18:00 Date of Last Intake of Solid Food: 08/13/24 Time of Last Intake of Solid Foods: 18:00 Notes The planned sedation has been discussed with the patient. Informed Consent was obtained. I have identified the patient, determined the appropriateness of sedation and have assessed the patient immediately prior to the procedure. All medicine(s) and interventions are by my order.
[2024-08-14] MEDS: fentaNYL citrate PF 100 MCG/2 ML VIAL ONE (14:20)
[2024-08-14] MEDS: HEPARIN (PORCINE) 1000 UNIT/ML 10 ML (CATH LAB USE ONLY) ONE (14:21)
[2024-08-14] MEDS: niCARdipine 2,000 MCG/20 ML SYR ONE (14:22)
[2024-08-14] MEDS: OPTIRAY 350 ONE (14:22)
[2024-08-14] MEDS: MIDAZOLAM HCL 1 MG/ML 2ML VIAL ONE (14:22)
[2024-08-14] MEDS: NITROGLYCERIN/D5W 100MCG/ML 20ML SYR ONE (14:24)
[2024-08-14] MEDS ORDERED: NITROGLYCERIN SL 0.4 MG/TAB TAB SL PRN (14:29)
--- NOTE | 2024-08-14 14:32 | Post Anesthesia Assessment ---
Date of Service August 14, 2024 Post Sedation Assessment Vital Signs Temp Pulse Pulse Pulse Resp BP Pulse Ox 08/14/24 12:18 69 14 150/88 H 95 08/14/24 11:23 36.6 C 60 16 158/85 H 94 08/14/24 08:00 74 08/14/24 07:46 36.3 C L 75 16 139/88 94 08/14/24 03:49 36.7 C 88 19 132/95 94 08/13/24 23:52 36.6 C 73 20 148/97 H 92 08/13/24 23:00 71 08/13/24 21:50 36.8 C 70 16 150/88 H 94 08/13/24 19:00 36.4 C L 72 17 147/98 H 95 08/13/24 15:16 36.5 C 66 18 130/88 94 O2 Del Method 08/14/24 12:18 Room Air 08/14/24 11:23 Room Air 08/14/24 08:00 08/14/24 07:46 Room Air 08/14/24 03:49 Room Air 08/13/24 23:52 Room Air 08/13/24 23:00 08/13/24 21:50 Room Air 08/13/24 19:00 Room Air 08/13/24 15:16 Room Air Recovery Score Activity: Moves 4 extremities Respiration: Deep Breath/Cough Circulation: +/-20% PreAnes Value Consciousness: Fully Awake Oxygen Saturation: > 92% On Room Air Discharge Sedation Level of Care: Fast Track Phase II Post Sedation Plan On clinical assessment, the patient appears to have tolerated the sedation without complications. Patient is recovering as anticipated. Patient will continue to be monitored by nursing and may be discharged when sedation discharge criteria are met per below protocol. Upon Completions of procedure up to 15 minutes continue every 5 minute vital signs and the P.A.R. score; then discharge to a Phase I or Fast Track to Phase II per the following guidelines: * Discharge Patient to appropriate Phase II area if PAR is 8 or greater or return to pre- procedure baseline. The post - procedure orders will be as directed. * If PAR score is less than 8 or not return to pre-procedure baseline then patient will follow Phase I monitoring till PAR is reached for Phase II. The Phase I may be done in procedure room or may call to secure a Phase I area. * If naloxone or flumazenil are used for reversal, hold in Phase I for continue d monitoring from when last reversal dose was given for a minimum of 60 minutes or longer pending the nurse and/or physician discretion of patient condition before discharge to Phase II. Please call the Sedation Physician to re-evaluate and complete post-note for discharge to Phase II area. Do NOT discharge from procedure sedation or Phase 1 until post- sedation evaluation note is complete by procedure /sedation MD Sedation Discharge Instructions to be given to the patient at discharge to home. [facility] Procedure Codes (Charges) Indication for Procedure Indication for procedure: NSTEMI known CAD Sedation/Anesthesia Procedure 1: Sedation/Anesthesia: 43186 Mod Sedation by the same physician;Init15 Min Child Age 5 & Up (initial 15 min, start 1355) Total Sedation Time (minutes): 27 Procedure 2: Sedation/Anesthesia: 70320 Mod Sedation by the same physician; Ea [id number] Minutes (additional 12 min, end 1422)
--- NOTE | 2024-08-14 14:58 | Electrocardiogram Report ---
Test Reason : Blood Pressure : */* mmHG Vent. Rate : 80 BPM Atrial Rate : 80 BPM P-R Int : 176 ms QRS Dur : 80 ms QT Int : 382 ms P-R-T Axes : 15 -40 -28 degrees QTcB Int : 440 ms Normal sinus rhythm Left axis deviation Nonspecific ST abnormality Abnormal ECG No previous ECGs available Confirmed by Иван Muhammad ([id number]) on 08/14/2024 2:58:25 PM Referred By: REFERRED SELF Confirmed By: Иван Muhammad
--- NOTE | 2024-08-14 15:11 | Electrocardiogram Report ---
Test Reason : Blood Pressure : */* mmHG Vent. Rate : 67 BPM Atrial Rate : 67 BPM P-R Int : 198 ms QRS Dur : 68 ms QT Int : 424 ms P-R-T Axes : 89 -31 214 degrees QTcB Int : 448 ms Poor data quality, interpretation may be adversely affected Sinus rhythm with occasional Premature ventricular complexes Left axis deviation Pulmonary disease pattern Increased R/S ratio in V1, consider early transition or posterior infarct Abnormal ECG When compared with ECG of 11-Aug-2024 19:38, (unconfirmed) Premature ventricular complexes are now Present Confirmed by Иван Muhammad ([id number]) on 08/14/2024 3:10:53 PM Referred By: REFERRED SELF Confirmed By: Иван Muhammad
--- NOTE | 2024-08-14 17:01 | Communication Note ---
Date of Service: August 14, 2024 Patient seen post coronary angiography. Patient tolerated procedure well without difficulty via right radial access. Study demonstrated chronic circumflex occlusion. Left anterior descending had moderate mid vessel disease Right coronary artery is culprit vessel with very tortuous vessel and serial stenoses at mid vessel. Heavily calcified and very difficult to access. Poorly amenable to coronary intervention Will plan medical therapy Patient already on aspirin and clopidogrel begun Will stop IV heparin Add oral nitrates with isosorbide mononitrate 30 mg/day, discontinue patch Continue metoprolol succinate 25 mg p.o. daily Reduced dose losartan 25 mg/day Amlodipine 2.5 mg nightly, discontinue nifedipine Outpatient records demonstrate significantly higher doses of metoprolol losartan as well as nifedipine. Terazosin not being administered currently Patient very sedentary and uses a lift chair for mobility. Goal to minimize demand based ischemia
[2024-08-14] MEDS: ISOSORBIDE MONO EXTENDED REL 30 MG TABCR PO SCH (17:49)
[2024-08-15 05:59] LABS: Hematocrit (blood only) 36.8 % (42.0-52.0); Hemoglobin 12.3 g/dl (14.0-18.0); Mean Corpuscular Hemoglobin 30.3 pg (25.0-34.0); Mean Corpuscular Hgb Conc 33.4 g/dL (32.0-36.0); Mean Corpuscular Volume 90.6 fL (80.0-100.0); Mean Platelet Volume 9.6 fL (9.4-12.4); Platelet Count 206 K/uL (130-400); RDW Standard Deviation 46.9 fL (36.4-46.3); Red Blood Count 4.06 M/uL (4.70-6.10)
[2024-08-15 06:15] LABS: BUN Creatinine Ratio 16.5 (10-20); Calcium 9.2 mg/dl (8.6-10.3); Creatinine Clr Calc Pharmacy 46.8 ml/min; Potassium 4.1 mmol/L (3.5-5.1)
[2024-08-15 06:25] LABS: ANTI-Xa, UFH(UnfractionatedHep < 0.10 IU/ml (0.3-0.7)
[2024-08-15] MEDS: LOSARTAN POTASSIUM 25 MG TAB PO SCH (08:51)
[2024-08-15] MEDS: amLODIPine BESYLATE 5 MG TAB PO SCH (08:51)
--- NOTE | 2024-08-15 12:30 | Cardiology Progress Note ---
Date of Service August 15, 2024 Assessment & Plan (1) Acute non-ST elevation myocardial infarction (NSTEMI): (2) PAD (peripheral artery disease): Plan 88-year-old male admitted with non-ST elevation myocardial infarction. Peak troponin 1429. Remains pain-free. Echocardiogram with posterior lateral wall motion abnormality. No contraindications to cardiac catheterization. Last procedure via femoral access in 1999 Good radial pulses Plan: Continue IV heparin, aspirin, clopidogrel, statin, and beta-william therapy. Add losartan 12.5 mg daily. Diagnostic cardiac catheterization Today N.p.o. except medications after midnight. 08/15/2024 Results of coronary angiography as prior coronary artery disease to be managed medically. Currently asymptomatic without angina. Will optimize medical therapies. Notable reduction in therapies. Will continue metoprolol succinate at 25 mg twice per day Reduced dose losartan 25 mg p.o. daily Isosorbide mononitrate 30 mg p.o. daily Discontinue nifedipine/amlodipine Continue aspirin and clopidogrel Needs prescription for sublingual nitroglycerin if not previously obtained Admission and Anticipated Discharge Date Admission Date: August 11, 2024 Subjective Patient seen and examined, chart, telemetry reviewed. No chest pains or discomfort overnight feels well this morning. Blood pressure trending downward with current medications. No dizziness lightness syncope or near syncope no chest pain with activity in room Review of Systems 2 Review of Systems: All systems reviewed & are unremarkable except as noted in Subjective Physical Exam Constitutional: well developed, well nourished and + obese; no acute distress Eyes: PERRL, conjunctivae normal, anicteric sclerae Neck: trachea midline, no thyromegaly Respiratory: normal respiratory effort; no respiratory distress and no labored breathing Auscultation: no crackles, no rales, no rhonchi and no wheezes Cardiovascular: Rate/Rhythm: regular rate and regular rhythm Heart Sounds: normal S1, normal S2 and + murmur (1/6 NADINE) Vessels: radial pulses present; no JVD and no carotid bruit Extremities: no edema Gastrointestinal (Abdomen): Inspection/Auscultation: abdomen normal to inspection and normal bowel sounds; abdomen not distended Percussion/Palpation: abdomen soft; abdomen nontender, no guarding and abdomen not rigid Neurologic: CN's II-XI intact bilaterally and moves all extremities; no focal motor deficits Results & Data Vital Signs (Past 12 Hours) Vital Signs Temp Pulse Resp BP Pulse Ox O2 Del Method 08/15/24 10:49 36.7 C 90 18 89/64 L 92 Room Air 08/15/24 07:25 36.5 C 73 18 105/63 93 Room Air 08/15/24 02:57 36.6 C 74 19 98/63 L 90 Room Air Laboratory Results Laboratory Results - last 24 hr 08/14/24 08/14/24 08/15/24 16:15 20:36 05:35 WBC 7.10 RBC 4.06 L Hgb 12.3 L Hct 36.8 L MCV 90.6 MCH 30.3 MCHC 33.4 RDW Std Deviation 46.9 H RDW Coeff of Jaleel 14.0 Plt Count 206 MPV 9.6 Heparin Anti-Xa, Unfract < 0.10 L Sodium 138 Potassium 4.1 Chloride 104 Carbon Dioxide 26 Anion Gap 8 BUN 20 Creatinine 1.21 Est Cr Clr Drug Dosing 46.8 eGFR 57.23 BUN/Creatinine Ratio 16.5 Glucose 96 POC Glucose 101 H 103 H Calcium 9.2 08/15/24 08/15/24 07:25 11:13 WBC RBC Hgb Hct MCV MCH MCHC RDW Std Deviation RDW Coeff of Jaleel Plt Count MPV Heparin Anti-Xa, Unfract Sodium Potassium Chloride Carbon Dioxide Anion Gap BUN Creatinine Est Cr Clr Drug Dosing eGFR BUN/Creatinine Ratio Glucose POC Glucose 96 126 H Calcium
--- NOTE | 2024-08-15 15:19 | Hospitalist Progress Note ---
Date of Service August 15, 2024 Assessment & Plan (1) Atypical chest pain: (2) Abnormal EKG: (3) Elevated troponin I level: (4) HTN (hypertension): (5) Dyslipidemia: (6) AAA (abdominal aortic aneurysm): (7) Type 2 diabetes mellitus: (8) PAD (peripheral artery disease): Plan Mr. 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 (hypercoag work up negative) and hypothyroidism who was admitted for management of NSTEMI Patient underwent [facility] 08/14 which revealed "Right coronary artery is culprit vessel with very tortuous vessel and serial stenoses at mid vessel. Heavily calcified and very difficult to access. Poorly amenable to coronary intervention" Cardiology optimizing medications at this time. PT/OT ordered for return to [facility]. #NSTEMI s/p [facility] 08/14/2024 #Chronic CAD with chronic circumflex occlusion with known right to left collaterals in 1999 ECHO 11/2023 with EF 55-59% and no wall motion abnormalities Troponin up to 1429.3, down trending ECHO with hypokinesis, posterior/lateral WMA , EF 50-55% Cardiology following, appreciate recs, reviewed PN Home regimen: -Metoprolol Tartrate 50 BID at home--transitioned to Metoprolol XL 25mg -Increased Atorvastatin 20mg daily, LDL 33 and Total Cholesterol 74 -Continue Zetia -Continue ASA 81 mg and plavix 75mg daily -Continue Imdur 30mh daily, newly started -Continue reduced dose Losartan 25mg daily (home 50) -Discontinue home nifedipine -Plan for outpatient nitro SL prescriptions #Aortic root/proximal ascending aorta dilatation stable on ECHO since 2019 at 4.4 cm ECHO stable on echo #AAA #Bilateral iliac aneurysms #Peripheral vascular disease s/p popliteal stenting Follows Dr. Bergeron, [facility] vascular #Chronic normocytic anemia baseline 12-13, likely component related to chronic disease b12 585, folate 8.7, ferritin 92 iron 57, Sat 24 continue po iron #HTN as above #HLD continue statin and zetia #Hx of DVT/PE in 2013 following popliteal stent on coumadin 6 months, hypercoag w/u negative, no recurrence heparin drip for above NSTEMI #T2DM c/b retinopathy/neuropathy/angiopathy: a1c 6.8 03/21/24, insulin per protocol continue gabapentin Myasthenia Gravis:Follows Dr. Schwartz at [facility], currently not on meds DVT ppx: heparin drip Dispo: PT/OT ordered, likely to return to [facility] once stable BP FULL CODE PCP: Dr. Vasquez Admission and Anticipated Discharge Date Admission Date: August 11, 2024 Subjective NAEO Patent denies any chest pain or other acute concerns sp cath Physical Exam Constitutional: WD/WN, vitals as above Respiratory: normal respiratory effort, lungs clear to auscultation Cardiovascular: RRR, no murmur, no edema Gastrointestinal (Abdomen): normal bowel sounds, soft, nontender, no hepatosplenomegaly Results & Data Results & Data Vital Signs (Past 12 Hours) Vital Signs Temp Pulse Resp BP Pulse Ox O2 Del Method 08/15/24 10:49 36.7 C 90 18 89/64 L 92 Room Air 08/15/24 07:25 36.5 C 73 18 105/63 93 Room Air Laboratory Results Short CBC 08/15/24 Range/Units 05:35 WBC 7.10 (4.8-10.8) K/ul Hgb 12.3 L (14.0-18.0) g/dl Hct 36.8 L (42.0-52.0) % Plt Count 206 (130-400) K/uL BMP 08/15/24 05:35 Sodium 138 Potassium 4.1 Chloride 104 Carbon Dioxide 26 BUN 20 Creatinine 1.21 Glucose 96 Calcium 9.2 Medications Administered Home Medications Medication Instructions Recorded Confirmed Last Taken aspirin 81 mg tablet,delayed 81 mg PO QPM 10/20/19 08/11/24 Unknown release (Adult Aspirin Regimen) cholecalciferol (vitamin D3) 50 2,000 units PO DAILY 10/20/19 08/11/24 Unknown mcg (2,000 unit) tablet ezetimibe 10 mg tablet (Zetia) 10 mg PO QPM 10/20/19 08/11/24 Unknown famotidine 20 mg tablet 20 mg PO BID 10/20/19 08/11/24 Unknown finasteride 5 mg tablet 5 mg PO DAILY 10/20/19 08/11/24 Unknown losartan 50 mg tablet 50 mg PO DAILY 10/20/19 08/11/24 Unknown metoprolol tartrate 50 mg tablet 50 mg PO BID 10/20/19 08/11/24 Unknown terazosin 5 mg capsule 10 mg PO HS 10/20/19 08/11/24 Unknown atorvastatin 10 mg tablet 10 mg PO HS 08/11/24 08/11/24 Unknown gabapentin 600 mg tablet 600 mg PO UD 08/11/24 08/11/24 Unknown levothyroxine 150 mcg tablet 150 mcg PO DAILY@0630 08/11/24 08/11/24 Unknown metformin 500 mg tablet,extended 500 mg PO BIDM 08/11/24 08/11/24 Unknown release 24 hr nifedipine 30 mg tablet,extended 30 mg PO PM 08/11/24 08/11/24 Unknown release pantoprazole 40 mg tablet,delayed 40 mg PO DAILY 08/11/24 08/11/24 Unknown release Active Medications Generic Name Dose Route Start Last Admin Trade Name Naren PRN Reason Stop Dose Admin Aspirin 81 mg 08/12/24 21:00 08/14/24 21:16 Aspirin 81 Mg Ectab PO 09/11/24 20:59 81 mg QPM SHADY Administration Atorvastatin Calcium 20 mg 08/12/24 21:00 08/14/24 21:16 Atorvastatin 20 Mg Tab PO 09/11/24 20:59 20 mg HS SHADY Administration Clopidogrel Bisulfate 75 mg 08/13/24 09:00 08/15/24 08:50 Clopidogrel Bisulfate 75 Mg Tab PO 09/12/24 08:59 75 mg QAM SHADY Administration Ezetimibe 10 mg 08/12/24 21:00 08/14/24 21:16 Ezetimibe 10 Mg Tab PO 09/11/24 20:59 10 mg QPM SHADY Administration Famotidine 20 mg 08/12/24 09:00 08/15/24 08:51 Famotidine 20 Mg Tab PO 09/11/24 08:59 20 mg BID SHADY Administration Finasteride 5 mg 08/12/24 09:00 08/15/24 08:51 Finasteride 5 Mg Tab PO 09/11/24 08:59 5 mg DAILY SHADY Administration Gabapentin 600 mg 08/12/24 19:00 08/14/24 18:02 Gabapentin 600 Mg Tab PO 09/11/24 18:59 600 mg DAILY@1900 [facility] Administration Protocol Gabapentin 1,200 mg 08/12/24 22:00 08/14/24 21:16 Gabapentin 600 Mg Tab PO 09/11/24 21:59 1,200 mg DAILY@2200 SHADY Administration Protocol Insulin Aspart 0 units 08/12/24 21:00 08/15/24 12:43 Insulin Aspart Per Unit Charge SC 09/11/24 20:59 Not Given ACHS SHADY Isosorbide Mononitrate 30 mg 08/14/24 16:45 08/15/24 08:51 Isosorbide Woodruff Extended Rel 30 Mg Tabcr PO 09/13/24 16:44 30 mg QAM SHADY Administration Levothyroxine Sodium 150 mcg 08/12/24 06:30 08/15/24 06:16 Levothyroxine Sodium 150 Mcg Tablet PO 09/11/24 06:29 150 mcg DAILY@0630 SHADY Administration Losartan Potassium 25 mg 08/15/24 09:00 08/15/24 08:51 Losartan Potassium 25 Mg Tab PO 09/14/24 08:59 25 mg QAM SHADY Administration Magnesium Oxide 400 mg 08/12/24 09:00 08/15/24 08:54 Magnesium Oxide 400 Mg Tab PO 09/11/24 08:59 400 mg BID SHADY Administration Pantoprazole Sodium 40 mg 08/12/24 09:00 08/15/24 08:51 Pantoprazole 40 Mg Tab PO 09/11/24 08:59 40 mg DAILY SHADY Administration
[2024-08-15] MEDS: METOPROLOL SUCC 25MG EXT REL TAB PO SCH (22:08)
[2024-08-16 06:37] LABS: Hematocrit (blood only) 37.9 % (42.0-52.0); Hemoglobin 12.5 g/dl (14.0-18.0); Mean Corpuscular Volume 90.9 fL (80.0-100.0); Mean Platelet Volume 9.7 fL (9.4-12.4); Platelet Count 220 K/uL (130-400); RDW Coefficient of Variation 13.8 % (11.5-14.5); RDW Standard Deviation 45.6 fL (36.4-46.3); Red Blood Count 4.17 M/uL (4.70-6.10); White Blood Count 7.16 K/ul (4.8-10.8)
[2024-08-16 06:46] LABS: Calcium 9.1 mg/dl (8.6-10.3); Creatinine Clr Calc Pharmacy 49.2 ml/min; Potassium 4.1 mmol/L (3.5-5.1)
--- NOTE | 2024-08-16 10:42 | Cardiology Progress Note ---
Date of Service August 16, 2024 Assessment & Plan (1) Acute non-ST elevation myocardial infarction (NSTEMI): (2) PAD (peripheral artery disease): Plan 88-year-old male admitted with non-ST elevation myocardial infarction. Peak troponin 1429. Remains pain-free. Echocardiogram with posterior lateral wall motion abnormality. No contraindications to cardiac catheterization. Last procedure via femoral access in 1999 Good radial pulses Plan: Continue IV heparin, aspirin, clopidogrel, statin, and beta-william therapy. Add losartan 12.5 mg daily. Diagnostic cardiac catheterization Today N.p.o. except medications after midnight. 08/15/2024 Results of coronary angiography as prior coronary artery disease to be managed medically. Currently asymptomatic without angina. Will optimize medical therapies. Notable reduction in therapies. Will continue metoprolol succinate at 25 mg twice per day Reduced dose losartan 25 mg p.o. daily Isosorbide mononitrate 30 mg p.o. daily Discontinue nifedipine/amlodipine Continue aspirin and clopidogrel Needs prescription for sublingual nitroglycerin if not previously obtained 08/16/2024 Continues to manifest stability. No anginal symptoms. Medications adjusted as noted on prior note Patient with known coronary artery disease, multivessel. Poor targets for revascularization with possibility of recurrence of angina Plan continued medical therapy as listed Admission and Anticipated Discharge Date Admission Date: August 11, 2024 Subjective Patient seen and examined, chart, medications, telemetry reviewed No chest pains, tachypalpitations or dizziness. Good night. Hemodynamically stable good heart rate and blood pressure control. No bleeding issues. Review of Systems Review of Systems: All systems reviewed & are unremarkable except as noted in Subjective Physical Exam Constitutional: well developed, well nourished and + obese; no acute distress Eyes: PERRL, conjunctivae normal, anicteric sclerae Neck: trachea midline, no thyromegaly Respiratory: normal respiratory effort; no respiratory distress and no labored breathing Auscultation: no crackles, no rales, no rhonchi and no wheezes Cardiovascular: Rate/Rhythm: regular rate and regular rhythm Heart Sounds: normal S1, normal S2 and + murmur (1/6 NADINE) Vessels: radial pulses present; no JVD and no carotid bruit Extremities: no edema Gastrointestinal (Abdomen): Inspection/Auscultation: abdomen normal to inspection and normal bowel sounds; abdomen not distended Percussion/Palpation: abdomen soft; abdomen nontender, no guarding and abdomen not rigid Neurologic: CN's II-XI intact bilaterally and moves all extremities; no focal motor deficits Results & Data Vital Signs (Past 12 Hours) Vital Signs Temp Pulse Pulse Pulse Resp BP Pulse Ox 08/16/24 08:29 36.4 C L 75 16 123/79 93 08/16/24 03:00 36.4 C L 71 18 114/71 96 08/16/24 00:00 63 08/15/24 23:00 36.3 C L 68 16 109/64 94 O2 Del Method 08/16/24 08:29 Room Air 08/16/24 03:00 Room Air 08/16/24 00:00 08/15/24 23:00 Room Air Laboratory Results Laboratory Results - last 24 hr 08/15/24 08/15/24 08/15/24 11:13 16:11 20:20 WBC RBC Hgb Hct MCV MCH MCHC RDW Std Deviation RDW Coeff of Jaleel Plt Count MPV Sodium Potassium Chloride Carbon Dioxide Anion Gap BUN Creatinine Est Cr Clr Drug Dosing eGFR BUN/Creatinine Ratio Glucose POC Glucose 126 H 98 109 H Calcium 08/16/24 08/16/24 05:31 07:26 WBC 7.16 RBC 4.17 L Hgb 12.5 L Hct 37.9 L MCV 90.9 MCH 30.0 MCHC 33.0 RDW Std Deviation 45.6 RDW Coeff of Jaleel 13.8 Plt Count 220 MPV 9.7 Sodium 137 Potassium 4.1 Chloride 103 Carbon Dioxide 28 Anion Gap 6 BUN 23 Creatinine 1.15 Est Cr Clr Drug Dosing 49.2 eGFR 60.83 BUN/Creatinine Ratio 20.0 Glucose 97 POC Glucose 94 Calcium 9.1
--- NOTE | 2024-08-16 10:48 | Electrocardiogram Report ---
Test Reason : Blood Pressure : */* mmHG Vent. Rate : 76 BPM Atrial Rate : 76 BPM P-R Int : 194 ms QRS Dur : 80 ms QT Int : 402 ms P-R-T Axes : 24 -45 -37 degrees QTcB Int : 452 ms Sinus rhythm with occasional Premature ventricular complexes Left axis deviation Nonspecific ST and T wave abnormality Abnormal ECG When compared with ECG of 12-Aug-2024 04:59, (unconfirmed) Nonspecific T wave abnormality now evident in Anterior leads Confirmed by Иван Muhammad ([id number]) on 08/16/2024 10:47:43 AM Referred By: REFERRED SELF Confirmed By: Иван Muhammad
[2024-08-16 11:23] VITALS: BP 119/77; PULSE 68; RESP 18; TEMP 98.1; O2SAT 94
--- NOTE | 2024-08-16 11:54 | Discharge Summary ---
Discharge Summary Date of Service August 16, 2024 Principal Dx & Hospital Course #1 = Principal Diagnosis (1) Atypical chest pain: (2) Abnormal EKG: (3) Elevated troponin I level: (4) HTN (hypertension): (5) Dyslipidemia: (6) AAA (abdominal aortic aneurysm): (7) Type 2 diabetes mellitus: (8) PAD (peripheral artery disease): Plan Mr. Valera is an 88-year-old male who has a significant past medical history of T2DM, diabetic polyneuropathy, HTN, HLD, PAD, 2.5 cm b/l iliac aneurysm, History of right popliteal stent, 4 cm AAA, ascending aortic dilatation, BPH, myasthenia gravis (follows with neuro and is currently off meds), DVT/PE in 2012 tx with 6 months of warfarin (hypercoag work up negative) and hypothyroidism who was admitted for management of NSTEMI Patient underwent left heart catheterization on 08/14/24 which revealed "Right coronary artery is culprit vessel with very tortuous vessel and serial stenoses at mid vessel. Heavily calcified and very difficult to access. Poorly amenable to coronary intervention" Cardiology optimized medications. PT/OT recommending pt can return to [facility]. NSTEMI s/p left heart catheterization on 08/14/2024 Chronic CAD with chronic circumflex occlusion with known right to left collaterals in 1999 Pt presented with chest pain x 1 day EKG on arrival noting sinus rhythm with occasional Premature ventricular complex es Troponin peaked at 1429.3, down trended ECHO 11/2023 with EF 55-59% and no wall motion abnormalities Echo from August 12 noting EF 50 to 55%, moderate-sized posterior and lateral wall motion abnormalities with hypokinesis of the segments, mild concentric LVH, mild aortic regurg, mild mitral regurg, mild tricuspid regurg, no pulmonary hypertension, aortic root mildly increased at 4.2 cm, ascending aorta mildly increased at 4.4 cm. Was on IV heparin until catheterization on 08/14/2024 which revealed "Right coronary artery is culprit vessel with very tortuous vessel and serial stenoses at mid vessel. Heavily calcified and very difficult to access. Poorly amenable to coronary intervention" Cardiology was consulted during the hsopital stay and recommended/stated the following on discharge: "08/15/2024: Results of coronary angiography as prior coronary artery disease to be managed medically. Currently asymptomatic without angina. Will optimize medical therapies. Notable reduction in therapies. Will continue metoprolol succinate at 25 mg twice per day Reduced dose losartan 25 mg p.o. daily Isosorbide mononitrate 30 mg p.o. daily Discontinue nifedipine/amlodipine Continue aspirin and clopidogrel Needs prescription for sublingual nitroglycerin if not previously obtained 08/16/2024 Continues to manifest stability. No anginal symptoms. Medications adjusted as noted on prior note Patient with known coronary artery disease, multivessel. Poor targets for revascularization with possibility of recurrence of angina Plan continued medical therapy as listed" Patient discharged with changes to medications as noted above. Close PCP follow-up after discharge, please ensure follow-up with cardiology after discharge as well. Aortic root/proximal ascending aorta dilatation stable on ECHO since 2019 at 4.4 cm PCP followup after discharge AAA Bilateral iliac aneurysms Peripheral vascular disease s/p popliteal stenting Follows Dr. Bergeron, [facility] [place] [facility] vascular Please ensure follow up after discharge Chronic normocytic anemia baseline 12-13, likely component related to chronic disease b12 585, folate 8.7, ferritin 92 iron 57, Sat 24 continue po iron PCP followup HTN as above HLD continue statin and zetia Hx of DVT/PE in 2012 following popliteal stent on coumadin 6 months, hypercoag w/u negative, no recurrence heparin drip for above NSTEMI, has since been discontinued in setting of above Not currently on anticoagulation PCP followup T2DM c/b retinopathy/neuropathy/angiopathy: a1c 6.8 03/21/24, insulin per protocol continue gabapentin PCP followup Myasthenia Gravis: Follows Dr. Schwartz at [facility] [place], currently not on meds PCP followup Notes For Next Care Provider Please ensure follow up with Cardiology after discharge Medication Changes From Visit Per cardiology: Changed home metoprolol to metoprolol succinate 25 mg BID. Decreased losartan to 25 mg daily (from 50mg daily) Started Imdur 30mg daily Please take that daily at the dose prescribed. Discontinued nifedipine Continued aspirin and Plavix PRN SL nitroglycerin Admission HPI Per Admitting Provider This is an 88-year-old male who has a significant past medical history of T2DM, diabetic polyneuropathy, HTN, HLD, PAD, 2.5 cm b/l iliac aneurysm, History of right popliteal stent, 4 cm AAA, ascending aortic dilatation, BPH, myasthenia gravis (follows neuro and is currently off meds), history of DVT/PE in 2012 tx with 6 months of warfarin (hypercoag work up negative) and hypothyroidism who presents to ED secondary to chest pain x 1 day. He reports chest pain began around 1830 While eating supper. His pain was located from nipple to nipple. It was nonradiating and constant. Pain was rated a 6 out of 10. Pain was similar to when he experienced a heart attack back in 1987. He reports his heart attack at that time was treated medically and did not require any coronary stent placement. He denies any associated nausea, vomiting, diaphoresis, lightheadedness, dizziness, palpitations. He further denies any shortness of breath. At baseline patient lives at assisted living facility. Due to severe neuropathy he uses a power chair for mobility. He denies any recent chest pain or GRIER. He is otherwise been in her normal state of health and denies any recent illness. He denies any fever, chills, sweats or changes in bowel or urinary habits. Patient summoned EMS. En route he received 4 baby aspirin as well as 1 nitro. His chest pain was immediately relieved after receiving nitro. In ED patient remained hemodynamically stable. He did have an elevation in his troponin at 52.5. He also had elevation in alk phos at 305 and BUN of 27. His H&H was 13.1 and 39.8. Chest x-ray revealed bibasilar atelectasis but otherwise no acute abnormality. EKG revealed lateral ST depressions in V4-V6. Admission Exam Per Admitting Provider Per admitting provider: constitutional: WD/WN, elderly, m, vitals as above, NAD, sitting up in bed, pleasant, conversing easily Head: Normocephalic, Atraumatic Eyes: PERRL, conjunctivae normal, anicteric sclerae ENMT: external ear and nose normal, oropharynx normal Neck: trachea midline, no thyromegaly normal visual inspection Respiratory: normal respiratory effort, lungs clear to auscultation, no wheeze, rales, rhonchi. Normal insp/exp effort, no accessory muscle use Cardiovascular: RRR, no murmur, no edema Vessels: no JVD or carotid bruit Chest: normal inspection of chest Abdomen: normal bowel sounds, soft, nontender, no hepatosplenomegaly Musculoskeletal: no cyanosis or clubbing, extremities motor strength 5/5 Skin: no rashes, warm and dry normal turgor Neurologic: PERRL, EOMI, accommodation nl, no face palsy, no dysarthria CN's II-XI intact bilaterally and moves all extremities Psychiatric: A+Ox3, euthymic affect Lymphatic: no cervical or axillary lymphadenopathy : deferred Discharge Exam General: Alert, orientedx3. No acute distress Psych: Appropriate mood and affect Neuro:difficulty with movements HEENT: NC/AT CV: RRR Resp: Breath sounds clear bilaterally, no increased effort of breathing Abdomen: Soft, nontender Extremities: Trace edema in lower extremities bilaterally. Updated Medication List Medication Instructions Recorded Confirmed Type aspirin 81 mg tablet,delayed 81 mg PO QPM 10/20/19 08/11/24 History release (Adult Aspirin Regimen) cholecalciferol (vitamin D3) 50 2,000 units PO DAILY 10/20/19 08/11/24 History mcg (2,000 unit) tablet ezetimibe 10 mg tablet (Zetia) 10 mg PO QPM 10/20/19 08/11/24 History famotidine 20 mg tablet 20 mg PO BID 10/20/19 08/11/24 History finasteride 5 mg tablet 5 mg PO DAILY 10/20/19 08/11/24 History losartan 50 mg tablet 50 mg PO DAILY 10/20/19 08/11/24 History metoprolol tartrate 50 mg tablet 50 mg PO BID 10/20/19 08/11/24 History terazosin 5 mg capsule 10 mg PO HS 10/20/19 08/11/24 History atorvastatin 10 mg tablet 10 mg PO HS 08/11/24 08/11/24 History gabapentin 600 mg tablet 600 mg PO UD 08/11/24 08/11/24 History levothyroxine 150 mcg tablet 150 mcg PO DAILY@0630 08/11/24 08/11/24 History metformin 500 mg tablet,extended 500 mg PO BIDM 08/11/24 08/11/24 History release 24 hr nifedipine 30 mg tablet,extended 30 mg PO PM 08/11/24 08/11/24 History release pantoprazole 40 mg tablet,delayed 40 mg PO DAILY 08/11/24 08/11/24 History release clopidogrel 75 mg tablet 75 mg PO QAM #30 tabs 08/16/24 Rx isosorbide mononitrate 30 mg 30 mg PO QAM #30 tabs 08/16/24 Rx tablet,extended release 24 hr losartan 25 mg tablet 25 mg PO QAM #30 tabs 08/16/24 Rx metoprolol succinate 25 mg 25 mg PO BID #60 tabs 08/16/24 Rx tablet,extended release 24 hr nitroglycerin 0.4 mg sublingual 0.4 mg sublingual Q5M PRN chest 08/16/24 Rx tablet pain #30 tabs Hospital Stay Data Consultations 08/11/24 20:40 ED Decision to Admit Stat 08/12/24 00:16 Consult Cardiology Routine Procedures Performed Operation Date: 08/14/24 12:00 Actual Procedures p Cineradiography w/Routine Exam - Kayden Gaona MD, PhD p Cath, Coronaries ONLY (no LV) - Kayden Gaona MD, PhD Diagnostic Imagining Performed 08/14/24 06:37 CL Cath Imgs for PACS use only Routine Chest X-Ray 08/11/24 19:42 Exam(s): XR CXR 1 VIEW EXAM: XR Chest, 1 View CLINICAL HISTORY: Reason for exam: Chest pain, nonspecific. TECHNIQUE: Frontal view of the chest. COMPARISON: No relevant prior studies available. FINDINGS: Lungs: Discoid atelectasis seen in the lung bases. Pleural space: Unremarkable. No pneumothorax. Heart: Unremarkable. No cardiomegaly. Mediastinum: Unremarkable. Normal mediastinal contour. Bones/joints: Severe degenerative arthritic changes seen at the shoulder joints, left more than right. No acute fracture. IMPRESSION: Bilateral basilar discoid atelectasis. Electronically signed by: Matias De León MD 08/11/24 20:56 PM Discharge Instructions Given to Patient (Per Discharging Provider) Hans, You were admitted and treated for a heart attack. You were seen by the [facility] supervisor who recommended changes to your medications as follows: They changed your home metoprolol to metoprolol succinate 25mg twice a day. Your losartan was also decreased to 25 mg daily You are started on a new medication called isosorbide mononitrate. Please take that daily at the dose prescribed. Cardiology discontinued your home nifedipine. Please stop taking this medication. Please continue with your aspirin and Plavix at home. Please continue to use the sublingual nitroglycerin prescribed on an as-needed basis for chest pain episodes at home. Please keep close follow-up with cardiology after discharge. Please keep close follow up with your primary care provider after discharge. Please do not hesitate to come back to the emergency room if your symptoms worsen or return. It was a pleasure taking care of you while you were here. Total Time Total Time Spent Total Time Spent (In Minutes): 65
--- NOTE | 2024-08-17 17:24 | Cardiac Catheterization ---
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) RCA (% Stenosis): Proximal (Complex 90% calcified) and Mid (Complex calcified 99% subtotal) R PDA (% Stenosis): Normal R PL1 (% Stenosis): Normal Ramus (% Stenosis): Normal Diagnostic Physicians Name: Kayden Gaona MD, PhD Closure Device Percutaneous Entry Location: Radial Closure Device: Radial Band Recommendations: Medical Therapy and/or Counseling Cardiac Cath Procedure Full Procedure Date August 17, 2024 Pre-Procedure Diagnosis Pre-Procedure Diagnosis: Non STEMI AUC Score AUC Score: 07 Post-Procedure Diagnosis Post-Procedure Diagnosis: Severe CAD Procedure(s) Performed Procedure(s) Performed: Coronary Angiography Distance Education Coordinator Kayden Gaona MD, PhD Estimated Blood Loss Estimated Blood Loss: 5 cc Medication(s) Medication(s): Heparin, Lidocaine 1%, Nicardipine and Nitroglycerin Summary of Findings Brief description: Patient was brought to the cardiac catheterization suite where he was shaved and prepped in a sterile fashion. Soft tissues of the right wrist were anesthetized using 2 mL of 1% Xylocaine. The right radial artery was accessed with a modified Seldinger technique and a 6 Romanian radial artery glide sheath was placed. Patient was provided anticoagulation with IV heparin and antispasmodics including nicardipine and nitroglycerin. All catheters were advanced and exchanged over a 0.035 J-tip wire. Left coronary angiography was performed in orthogonal views with a 5 Romanian JL 5 diagnostic catheter. Right coronary angiography was performed in orthogonal views with a 5 Romanian JR4 diagnostic catheter. Diagnostic catheters were removed. Radial artery sheath was removed. Hemostasis was obtained using a TR band. The patient was hemodynamically stable and asymptomatic. He was returned to the recovery area. This ended the case. Coronary angiography findings: RIY-[id number]-[id number] vessel trifurcating into LAD, circumflex, and ramus. No angiographically significant disease. [id number] vessel. Proximal segment is calcified and somewhat ectatic. Up to 50% narrowing. It gives a large branching D1. The mid LAD has 30% narrowing. Distally there is a tubular 50% narrowing. [id number]. Proximally it is 100% occluded after an atrial branch. Distally it fills via left to left collateralization. Ramus-small to medium caliber without significant disease. RCA-this is large caliber, ectatic, and tortuous. Proximally there is a complex heavily calcified up to 90% stenotic lesion. The mid vessel also has a complex calcified lesion and this 1 is up to 99% narrowed. After it it is tortuous in the distal vessel which has diffuse mild disease. It then bifurcates into the PDA and posterolateral branches which are relatively disease-free. Summary: 1. 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 2. Guideline directed medical therapy for secondary prevention of coronary artery disease. Uptitrate anginal regimen. Hemodynamics Rest Ao:: 120/81 mmHg Final Ao: 127/85 mmHg LV: Not performed Recommendations Recommendations: Medical Therapy and/or Counseling Radiation Exposure (mGy) 1272 mGy, fluoroscopy time 6.1 minutes Contrast (mls) 103 cc Anesthesia None Procedural Complication(s) None Disposition Vibration Analyst Holding/Recovery I attest to the content of the Intraoperative Record and any orders documented therein. Any exceptions are noted below. [facility] Card Cath Procedure Codes Cardiac Catheterization Procedure 1: Cardiovascular Cath Procedures: 28979 Coronaries PG Care Time/CCT Total # of Minutes Spent Total Time Spent with Patient: Total time spent is greater than 50% in coordination of care (as documented) at patient's floor/unit and/or counseling patient:
== END 2024-08-16 14:10 | disposition home or self-care (01) | DRG 282 ==
LOC: ED 19:34 → 1E 22:15 → SUATTDRO 22:15 → 1E 23:42 → 2E 08-13 21:30
PROC: CLB.CCO (2024-08-14 12:00)